=== PATIENT | male | born 1945 ===

== ENCOUNTER → 2019-12-30 10:53 | Outpatient (BNVA) | payer MEDICARE, OTHER, SELFPAY | PROVIDERS: PCP Family Medicine; Visit Provider Urology | DX: Z76.89 Persons encountering health services in other specified circumstances (principal) | CPT/HCPCS: 99212 ==

== ENCOUNTER → 2020-01-13 11:26 | Outpatient (BNVA) | payer MEDICARE, OTHER, SELFPAY | PROVIDERS: PCP Family Medicine; Visit Provider Urology | DX: N40.1 Benign prostatic hyperplasia with lower urinary tract symptoms (principal); N13.8 Other obstructive and reflux uropathy; R33.9 Retention of urine, unspecified | CPT/HCPCS: 51798; 99212 ==

== ENCOUNTER → 2020-12-08 11:20 | Outpatient (BNVA) | payer MEDICARE, OTHER, SELFPAY | PROVIDERS: PCP Family Medicine; Visit Provider Urology | DX: N40.1 Benign prostatic hyperplasia with lower urinary tract symptoms (principal); N13.8 Other obstructive and reflux uropathy | CPT/HCPCS: Q3014 ==

== ENCOUNTER → 2021-06-15 14:38 | Outpatient (BNVA) | payer MEDICARE, OTHER, SELFPAY | PROVIDERS: PCP Family Medicine; Visit Provider Urology | DX: N40.1 Benign prostatic hyperplasia with lower urinary tract symptoms (principal); N13.8 Other obstructive and reflux uropathy; R33.9 Retention of urine, unspecified | CPT/HCPCS: 51798; 99212 ==

== ENCOUNTER 2021-12-16 13:03 | Outpatient (AMB) | payer MEDICARE, OTHER, SELFPAY ==
--- NOTE | 2021-12-16 13:08 | MHC.OFFVIS ---
Intake Intake Visit Reasons: 6 month PVR Intake Note: fu on PVR Allergies mite-Dermatophagoides farinae, ale [dust mite - [place]] Allergy (Mild, Verified 09/20/22 14:47) Unknown HPI HPI Comments History of Present Illness Details Carlos is a pleasant male. He is a patient of Dr. Payne. He is seen for the following urologic conditions - neurogenic bladder Accompanied by his Notices progression of symptoms Is interested in procedure Has cardiac intervention upcoming Discussed issues regarding collateralization and reperfusion with capped rate He will call after intervention completed Neurogenic Bladder: Previous discussion regarding TUIP for bladder Episode of retention seen at [facility] December 2019, C[facility] PSA 11/02 3.3 Associated conditions Alzhiemers No CAD No CVA No Diabetes No Multiple sclerosis No renal replacement therapy No Spinal injury/surgery No Current management alpha blockers Erectile dysfunction:? He presents today for?for continued evaluation and management of erectile dysfunction.? Symptoms have been present for/since?several months ago.? Current treatment includes?none.? At this time he experiences erections?05/30 , are partial and adequate for vaginal penetration, that undergo rapid detumesence after penetration, ROB 8-11 Moderate ED.? Nocturnal erections?do occur.? Currently they are?in a stable relationship.? Associated problems? hypertension ?Yes ? diabetes ?No ? dyslipidemia ?No ? depression ?No ? stress ?No ? decreased libido ?No ? pelvic surgery ?No ? Overall he is ?satisfied with the current management.? Therapeutic plan includes?working well ?- only using occasionally PFSH Medical History Insomnia Panic attack HTN (hypertension) Neurogenic bladder Coronary atherosclerosis BPH (benign prostatic hyperplasia) Chronic sinusitis Poor urinary stream Benign prostatic hyperplasia with lower urinary tract symptoms Retention of urine Surgical History History of back surgery Hx of bilateral inguinal hernia repair Social History Household Members: Spouse Housing: House Are you a primary pediatric critical care nurse to a significant other at home: No Do you presently have visiting nurse or other home services: No Patient Tobacco Use Status: Never used Tobacco Review of Systems Const Denies chills and Denies fever(s) Card Reports no additional complaints and Denies syncope Resp Denies cough GI Denies abdominal pain and Denies heartburn Reports as per HPI and Denies change in libido Neuro Denies syncope Psych Denies change in libido Endo Denies change in libido Physical Exam Const General: cooperative, healthy appearing, comfortable and no acute distress Orientation/consciousness: patient oriented x3 HEENT Face and sinus: Yes normal facial exam Mouth: moist mucous membranes Neck Neck: Yes normal visual inspection, Yes full ROM and Yes trachea midline Chest Chest palpation & inspection: normal inspection of the chest Resp Effort & Inspection: normal respiratory effort, able to speak in complete sentences and no respiratory distress GI Inspection: Yes normal to inspection Back/Spine/Pelvis Cervical Spine: normal cervical lordosis Thoracic/Lumbar Spine: thoracic and lumbar spine normal to inspection Skin General skin exam: no rashes or lesions noted Neuro General: patient oriented x3, gait normal, tone normal and moves all extremities Extrem General: Yes normal to inspection and Yes capillary refill normal Assessment & Plan Assessment & Plan (1) BPH w urinary obs/LUTS: Code(s): N40.1 - Benign prostatic hyperplasia with lower urinary tract symptoms; N13.8 - Other obstructive and reflux uropathy (2) Urinary retention: Code(s): R33.9 - Retention of urine, unspecified Plan He will call once cardiac issues resolved Patient Instructions: Imaging studies, laboratory and physical exam results were discussed and reviewed in detail. No major barriers to patient understanding were identified. An opportunity to ask questions regarding the treatment plan was provided. All questions were answered. The patient expressed understanding and agreement with the above treatment plan. The patient is aware they should contact our office by phone for worsening of their current condition or the appearance of new urologic symptoms. Compliance is encouraged with any medications and followup testing that is ordered. It is a privilege to participate in the urologic care of your patient. If you have any questions or concerns regarding treatment for the above conditions, or other urologic issues, please do not hesitate to contact me. The office telephone contact is [phone]. This note is constructed using voice recognition software. While every effort has been made to ensure accuracy blade aligner errors may have been included. Yours sincerely, Dr Kevin Longoria MD, [facility] - Urology Providers of Expert, Compassionate Care for the Genitourinary System Coding Level of Care Code Est Pt Level 3 (23674) Diagnoses BPH w urinary obs/LUTS N40.1; N13.8 Urinary retention R33.9
== END 2021-12-16 13:47 | disposition home or self-care (01) ==
LOC: HO.HUSH 13:03
PROVIDERS: PCP Family Medicine; Visit Provider Urology
DX: N40.1 Benign prostatic hyperplasia with lower urinary tract symptoms (principal); N13.8 Other obstructive and reflux uropathy; R33.9 Retention of urine, unspecified
CPT/HCPCS: 99213; 99499

== ENCOUNTER → 2021-12-16 13:03 | Outpatient (BNVA) | payer MEDICARE, OTHER, SELFPAY | PROVIDERS: PCP Family Medicine; Visit Provider Urology | DX: N40.1 Benign prostatic hyperplasia with lower urinary tract symptoms (principal); N13.8 Other obstructive and reflux uropathy; R33.9 Retention of urine, unspecified | CPT/HCPCS: 99212 ==

== ENCOUNTER → 2022-05-11 14:26 | Outpatient (BNVA) | payer MEDICARE, OTHER, SELFPAY | PROVIDERS: PCP Family Medicine; Visit Provider Urology | DX: N40.1 Benign prostatic hyperplasia with lower urinary tract symptoms (principal); N13.8 Other obstructive and reflux uropathy; R33.9 Retention of urine, unspecified; N52.9 Male erectile dysfunction, unspecified; I10 Essential (primary) hypertension | CPT/HCPCS: Q3014 ==

== ENCOUNTER → 2022-08-10 11:25 | Outpatient (BNVA) | payer MEDICARE, OTHER, SELFPAY | PROVIDERS: Visit Provider Urology | DX: N40.1 Benign prostatic hyperplasia with lower urinary tract symptoms (principal); N13.8 Other obstructive and reflux uropathy; N31.9 Neuromuscular dysfunction of bladder, unspecified; N52.9 Male erectile dysfunction, unspecified; E29.1 Testicular hypofunction; R39.12 Poor urinary stream; R33.9 Retention of urine, unspecified | CPT/HCPCS: 99212 ==

== ENCOUNTER 2022-12-25 06:50 | Day surgery (SDC) | payer MEDICARE, OTHER, SELFPAY ==
[2022-09-20 14:48] VITALS: BMI 22.6
[2022-12-21 16:01] VITALS: BMI 22.9
[2022-12-25] VITALS (8 sets, daily range): BP systolic 107–132; BP diastolic 63–87; PULSE 56–68; RESP 12–18; TEMP 36.1–36.3; O2SAT 98–100
--- NOTE | 2022-12-25 09:03 | HO.ANESPROP2 ---
HPI - Anesthesia Eval Consult details Narrative: 77 yo M presenting for cystoscopy and transurethral incision Prost PMFSH Active Problems Active Problems: All Active Problems (Updated 12/21/22 @ 15:59 by Janay Fnuez RN) BPH w urinary obs/LUTS (Acute) Urinary retention (Acute) Past Medical History Medical History Insomnia Panic attack HTN (hypertension) Neurogenic bladder Coronary atherosclerosis BPH (benign prostatic hyperplasia) Chronic sinusitis Poor urinary stream Benign prostatic hyperplasia with lower urinary tract symptoms Retention of urine Family History Family history of problems with anesthesia: No Surgical History Surgical History History of back surgery Hx of bilateral inguinal hernia repair History of Problems with Anesthesia: No Social History Social History Household Members: Spouse Housing: House Are you a primary customer care specialist to a significant other at home: No Do you presently have visiting nurse or other home services: No Patient Tobacco Use Status: Never used Tobacco Use of substances other than those prescribed or required for medical reasons: No Substance Use Frequency: Daily Have you been hit, kicked, punched, or otherwise hurt by someone within the past year? If so, by whom?: No Are you DNR?: No Advance Directives: No Advance Directives Information Provided: Yes Advance Directives on File: No Recently lost weight without trying: No Eating poorly because of decreased appetite: No Nutrition Risks: No Nutritional Risk Poor oral hygiene: No Meds Allergies Allergy/AdvReac Type Severity Reaction Status Date / Time mite-Dermatophagoides Allergy Mild Unknown Verified 09/20/22 14:47 ale cash [dust mite - [place]] Active Medications: Current Medications Lactated Ringer's (Lr) 1,000 mls @ 50 mls/hr IVCONT .Q20H [facility] Home Medications Medication Instructions Recorded Confirmed Last Taken Type fluticasone propionate 50 1 spray intranasal DAILY PRN 12/30/19 09/20/22 Unknown History mcg/actuation nasal Allergy Symptoms spray,suspension aspirin 81 mg tablet,delayed 81 mg PO DAILY 06/15/21 09/20/22 Unknown History release sertraline 25 mg tablet 25 mg PO BEDTIME 06/15/21 12/21/22 Unknown History amlodipine 2.5 mg tablet 2.5 mg PO DAILY 09/20/22 Unknown History buspirone 5 mg tablet 5 mg PO BID 09/20/22 Unknown History gabapentin 300 mg capsule 300 mg PO DAILY 09/20/22 Unknown History ivermectin 3 mg tablet 12 mg PO QWEEK 09/20/22 Unknown History metoprolol succinate 25 mg capsule 25 mg PO DAILY 09/20/22 Unknown History sprinkle, ext. release 24 hr nitroglycerin 0.4 mg sublingual 0.4 mg sublingual Q5M PRN Chest 09/20/22 09/20/22 Unknown History tablet (Nitrostat) Pain prazosin 1 mg capsule 1 mg PO BEDTIME 09/20/22 09/20/22 Unknown History tamsulosin 0.4 mg capsule 0.4 mg PO BEDTIME 12/21/22 12/21/22 Unknown History zolpidem 5 mg tablet (Ambien) 5 mg PO BEDTIME PRN Insomnia 12/21/22 12/21/22 Unknown History Exam Exam Date and Time: December 25, 2022902 Height,Weight and Vital Signs: Height 5 ft 9 in Weight 70.307 kg Last Vital Signs Temp 96.9 F 12/25/22 08:03 Pulse 56 12/25/22 08:03 Resp 18 12/25/22 08:03 BP 107/87 12/25/22 08:03 Pulse Ox 98 12/25/22 08:03 O2 Del Method Room Air 12/25/22 08:03 Airway Mallampati Class: II TM Dist: >3cm Neck ROM: Full Loose/Missing/Broken Teeth: No Heart: S1S2 Lungs: CTAB Assessment and Plan Assessment Anesthesia Assessment: Anesthesia Plan Discussed and Chart Reviewed Final Anesthetic Review Family History of Problems with Anesthesia: No History of Problems with Anesthesia: No NPO: Yes ASA Class: II Final Preanesthetic Review: No Changes in Pt Med Stat, Meds/Allgs Chart Reviewed, Consent Obtained/Reviewed and Anes Risks/Benef Reviewed Patient Risk: Low Procedure Risk: Low Anesthetic Plan Anesthetic Plan: GA and Agree w/ Assess. and Plan Disposition: Standard PACU
--- NOTE | 2022-12-25 09:08 | P.HPSUR_ITS ---
Pre-Procedural Eval Section A Date of Service: 12/25/22 The patient is an INPATIENT: No Changes since office visit: No Cold of Flu in the past 2 weeks, No New Medical Problems, No Changes in Medication and No Patient answered all questions The History & Physical has been completed within 30 days and I have reviewed it.: No Section B Chief Complaint: Benign prostatic hyperplasia with lower urinary Details of Present Illness: Bladder outlet obstruction Relevant Family History (Specify if Yes): No Relevant Social History: None Present Medications: see Short Stay Collaborative assessment Medical History: Significant History History of Previous Operations: No relevant previous surgery Allergies: Allergies Allergy/AdvReac Type Severity Reaction Status Date / Time mite-Dermatophagoides Allergy Mild Unknown Verified 09/20/22 14:47 ale cash [dust mite - [place]] Review of Systems Sugical H&P ROS: Negative: Constitution, Cardiovascular, Respiratory, Neurological, Psychiatric, Hem-Onc, Allergic/Immunologic, Gastrointestinal, Genitourinary, Musculoskeletal, Integumentary, Endocrine and Eyes/Ears/Nose/Throat Exam Surgical H&P Exam: Normal: HEENT, Normal: Heart, Normal: Lungs, Normal: Extremities, Normal: Abdomen, Normal: Skin and Normal: Neurological Plan Diagnosis/Plan: Unchanged (laser incision) I have reviewed the history and physical and performed a pertinent physical examination on my patient. No changes have occurred unless specified. Time Spent With Patient Time: Total time managing care of this patient today ____ minutes.
[2022-12-25] MEDS: Lactated Ringers 1,000 ML 50 ML IVCONT (09:13)
--- NOTE | 2022-12-25 10:12 | P.OP_ITS ---
Operative Note Operative Note Date of Service: 12/25/22 Narrative: PreOperative Diagnosis: Bladder outlet obstruction Post Operative Diagnosis: Bladder outlet obstruction Procedure: GreenLight Laser Enucleation of the prostate Surgeon: Dr Kevin Longoria Anesthesia: General History of bladder outlet obstruction. Treated with alpha-amie and other medications. Still with symptoms. On cystoscopy in office has tight bladder neck. Recommendation for prostate procedure with laser incision of the prostate. At cystoscopy in operating room found to have median lobe that was obstructive. Laser enucleation procedure performed Risks and benefits have been discussed. Focus was placed on development of retrograde ejaculation which is a normal part of this procedure. Procedure: After informed consent was verified the patient was brought to the operating room and placed in a supine position. Anesthesia was administered per protocol. Patient was placed in modified dorsal lithotomy position and prepped and draped in a sterile fashion. Safety pause time-out was confirmed. Antibiotics have been given. A Twenty-four [place] laser cystoscope was inserted per urethra. No abnormalities were found of the anterior and bulbar urethra. The bladder was examined and both ureteric orifices were seen in their normal positions away from the area of interest. Using a GreenLight laser with settings of 80 w incisions were made at the 5 and 7 o'clock position. The incisions were taken down from the bladder neck down to the level of the veru. These were gradually deepened in order to define the lateral aspects of the median lobe area. Once clearly defined they will also extended in the lateral directions in order to create a deep groove. The median lobe was then ablated and enucleated tissue released into the bladder with the laser power increased to 120 W. Once the median lobe area had been cleared attention was directed to the lower portion of the lateral lobes. Starting with the patient's left lateral lobe. First the 05:00 o'clock groove was further developed. This was moved in the lateral direction to undermine the tissue on the lateral side running from the bladder neck to the prostate apex. A similar procedure was repeated on the patient's right-hand side. The only d ifferences being the position of the lateral groove at he 7 'oclock position. Otherwise the procedure was developed in a mirror fashion. Particular attention was placed to the area around the veru. Obstructive tissue was removed both in the midline and laterally. When this was had been completed debris and pieces of prostate were removed from the bladder with irrigation. Both ureteric orifices were reviewed again in shown to be patent in away from any areas of energy damage. The apical area was reviewed in any stray ooze was controlled. A 22 [place] 30 cc balloon Waters catheter was placed over a stylet into the bladder. Clear efflux was obtained upon irrigation with a Shahida piston syringe. 30 cc was placed in the balloon and gentle traction was placed. A snap was used to hold tension on the catheter to control bleeding during patient moved and transported. A drainage bag was placed. Once transportation is complete to the PACU the snap will be removed. The patient tolerated the procedure well, he was extubated in the operating and transferred in a stable condition to the recovery area. Total Power 152kW kW Lasing time 20:36 Pathology: Prostate tissue Drains: Waters catheter
--- NOTE | 2022-12-25 10:19 | PM.DS ---
DS: Providers Provider Date of Service: 12/25/22 Primary care physician: En Kennedy MD DS: Diagnosis Discharge Diagnosis (1) BPH w urinary obs/LUTS: Status: Acute (2) Urinary retention: Status: Acute (3) Gross hematuria: Status: Acute DS: Summary Hospital Course Hospital Course: Underwent prostate procedure Postoperatively had significant hematuria Remain in hospital overnight Urine cleared by morning Status at Discharge Functional status at discharge: independent ambulation Overall status at discharge: patient is back to baseline Time Attestation Discharge coordination time: Less than 30 minutes Quality: Safe Use of Opioids Does Pt have an Active Cancer Diagnosis on the Problem List?: No Quality: Stroke Does the patient have a stroke diagnosis?: No Physical Exam Vital Signs: Vital Signs: Last Vital Signs Temp 96.9 F 12/25/22 08:03 Pulse 56 12/25/22 08:03 Resp 18 12/25/22 08:03 BP 107/87 12/25/22 08:03 Pulse Ox 98 12/25/22 08:03 O2 Del Method Room Air 12/25/22 08:03 BMI result Body Mass Index 22.9 DS: Data Data Completed and Pending Pending studies at discharge: Pending at discharge 12/25/22 09:59 Surgical [PTH] Routine Discharge Plan Discharge Patient Disposition: Home, Self-Care Referrals: Kevin Longoria MD [Physician] - 3-5 Days (sun/ catheter removal) En Kennedy MD [Primary Care Provider] - None Discharge Medications: No Action finasteride 5 mg tablet 5 mg PO DAILY 90 Days Qty: 90 2RF buspirone 5 mg Tablet 5 mg PO BID prazosin 1 mg Capsule 1 mg PO BEDTIME amlodipine 2.5 mg Tablet 2.5 mg PO DAILY nitroglycerin [Nitrostat] 0.4 mg Tablet, Sublingual 0.4 mg SUBLINGUAL Q5M PRN (Reason: Chest Pain) Rx Instructions: do not exceed 3 doses per episode gabapentin 300 mg Capsule 300 mg PO DAILY metoprolol succinate 25 mg Capsule,Sprinkle,Er 24hr 25 mg PO DAILY ivermectin 3 mg Tablet 12 mg PO QWEEK tamsulosin 0.4 mg capsule 0.4 mg PO BEDTIME zolpidem [Ambien] 5 mg Tablet 5 mg PO BEDTIME PRN (Reason: Insomnia) fluticasone propionate 50 mcg/actuation spray,suspension 1 spray intranasal DAILY PRN (Reason: Allergy Symptoms) sertraline 25 mg tablet 25 mg PO BEDTIME aspirin 81 mg tablet,delayed release (DR/EC) 81 mg PO DAILY Discharge Orders: Discharge Order (Routine); Ordered 12/25/22 Ordered By: Kevin Longoria Diet: Advance to usual diet Activity on Discharge: As tolerated Patient Instructions: Transurethral Prostatectomy (DC) Discharge Date/Time: 12/25/22 11:56
== END 2022-12-25 11:56 | disposition home or self-care (01) ==
PROVIDERS: PCP Internal Medicine Endocrinology, Diabetes & Metabolism; Visit Provider Urology
PROC: (CPT 52649; principal; 2022-12-25 09:10)
DX: N40.1 Benign prostatic hyperplasia with lower urinary tract symptoms (principal); N13.8 Other obstructive and reflux uropathy; R33.8 Other retention of urine; R39.12 Poor urinary stream; I25.10 Atherosclerotic heart disease of native coronary artery without angina pectoris; I10 Essential (primary) hypertension; E78.5 Hyperlipidemia, unspecified; J32.9 Chronic sinusitis, unspecified; F41.0 Panic disorder [episodic paroxysmal anxiety]; F41.9 Anxiety disorder, unspecified; Z79.51 Long term (current) use of inhaled steroids; Z79.899 Other long term (current) drug therapy
CPT/HCPCS: 52649; 88305; J1100; J1956; J2405; J2704; J3010

== ENCOUNTER → 2022-12-25 06:50 | Outpatient (BNV) | payer MEDICARE, OTHER, SELFPAY | PROVIDERS: PCP Internal Medicine Endocrinology, Diabetes & Metabolism; Visit Provider Urology | DX: N40.1 Benign prostatic hyperplasia with lower urinary tract symptoms (principal); N13.8 Other obstructive and reflux uropathy; R33.9 Retention of urine, unspecified; R31.0 Gross hematuria | CPT/HCPCS: 52649; 99024 ==

== ENCOUNTER 2022-12-27 16:05 | Outpatient (AMB) | payer MEDICARE, OTHER, SELFPAY ==
--- NOTE | 2022-12-27 16:05 | A.OFFVIS_ITS ---
Intake Intake Visit Reasons: 24 hr cath removal (tuip) Intake Note: pt presents for cathter removal s/p TUIP- 22 fr cath removed, pt tolerated removal well. Allergies mite-Dermatophagoides farinae, ale [dust mite - [place]] Allergy (Mild, Verified 09/20/22 14:47) Unknown HPI HPI Comments History of Present Illness Details Carlos is a pleasant male. He is a patient of Dr. Payne. He is seen for the following urologic conditions - neurogenic bladder - erectile dysfunction - hypogonadism - treated in [place] with hormone pellet - lower urinary tract symptoms Here for Waters catheter removal Did well with partial laser prostate enucleation Return in 4 weeks PVR Neurogenic Bladder/lower urinary tract symptoms Previous discussion regarding TUIP for bladder Episode of retention seen at [facility] December 2019, [facility] PSA 11/02 3.3 Current management alpha blockers Erectile dysfunction:? He presents today for?for continued evaluation and management of erectile dysfunction.? Symptoms have been present for/since?several months ago.? Current treatment includes?none.? At this time he experiences erections?05/30 , are partial and adequate for vaginal penetration, that undergo rapid detumesence after penetration, ROB 8-11 Moderate ED.? Nocturnal erections?do occur.? Currently they are?in a stable relationship.? Associated problems? hypertension ?Yes ? diabetes ?No ? dyslipidemia ?No ? depression ?No ? stress ?No ? decreased libido ?No ? pelvic surgery ?No ? Overall he is ?satisfied with the current management.? Therapeutic plan includes?working well ?- only using occasionally PFSH Medical History Insomnia Panic attack HTN (hypertension) Neurogenic bladder Coronary atherosclerosis BPH (benign prostatic hyperplasia) Chronic sinusitis Poor urinary stream Benign prostatic hyperplasia with lower urinary tract symptoms Retention of urine Surgical History History of back surgery Hx of bilateral inguinal hernia repair Social History Household Members: Spouse Housing: House Are you a primary director of patient care to a significant other at home: No Do you presently have visiting nurse or other home services: No Patient Tobacco Use Status: Never used Tobacco Review of Systems Const Denies chills and Denies fever(s) Card Reports no additional complaints and Denies syncope Resp Denies cough GI Denies abdominal pain and Denies heartburn Reports as per HPI and Denies change in libido Neuro Denies syncope Psych Denies change in libido Endo Denies change in libido Physical Exam Const General: cooperative, healthy appearing, comfortable and no acute distress Orientation/consciousness: patient oriented x3 HEENT Face and sinus: Yes normal facial exam Mouth: moist mucous membranes Neck Neck: Yes normal visual inspection, Yes full ROM and Yes trachea midline Chest Chest palpation & inspection: normal inspection of the chest Resp Effort & Inspection: normal respiratory effort, able to speak in complete sentences and no respiratory distress GI Inspection: Yes normal to inspection Back/Spine/Pelvis Cervical Spine: normal cervical lordosis Thoracic/Lumbar Spine: thoracic and lumbar spine normal to inspection Skin General skin exam: no rashes or lesions noted Neuro General: patient oriented x3, gait normal, tone normal and moves all extremities Extrem General: Yes normal to inspection and Yes capillary refill normal Assessment & Plan Assessment & Plan (1) Urinary retention: Code(s): R33.9 - Retention of urine, unspecified (2) BPH w urinary obs/LUTS: Code(s): N40.1 - Benign prostatic hyperplasia with lower urinary tract symptoms; N13.8 - Other obstructive and reflux uropathy Plan 4 week follow-up PVR Patient Instructions: Imaging studies, laboratory and physical exam results were discussed and reviewed in detail. No major barriers to patient understanding were identified. An opportunity to ask questions regarding the treatment plan was provided. All questions were answered. The patient expressed understanding and agreement with the above treatment plan. The patient is aware they should contact our office by phone for worsening of their current condition or the appearance of new urologic symptoms. Compliance is encouraged with any medications and followup testing that is ordered. It is a privilege to participate in the urologic care of your patient. If you have any questions or concerns regarding treatment for the above conditions, or other urologic issues, please do not hesitate to contact me. The office telephone contact is [phone]. This note is constructed using voice recognition software. While every effort has been made to ensure accuracy custom protection officer errors may have been included. Yours sincerely, Dr Kevin Longoria MD, [facility] - Urology Providers of Expert, Compassionate Care for the Genitourinary System Coding Level of Care Code Global (54436) Diagnoses Urinary retention R33.9 BPH w urinary obs/LUTS N40.1; N13.8
== END 2022-12-27 16:50 | disposition home or self-care (01) ==
PROVIDERS: PCP Internal Medicine Endocrinology, Diabetes & Metabolism; Visit Provider Urology
DX: R33.9 Retention of urine, unspecified (principal); N40.1 Benign prostatic hyperplasia with lower urinary tract symptoms; N13.8 Other obstructive and reflux uropathy
CPT/HCPCS: 99024

== ENCOUNTER → 2022-12-27 16:05 | Outpatient (BNVA) | payer MEDICARE, OTHER, SELFPAY | PROVIDERS: PCP Internal Medicine Endocrinology, Diabetes & Metabolism; Visit Provider Urology ==

== ENCOUNTER 2023-01-26 11:35 | Outpatient (AMB) | payer MEDICARE, OTHER, SELFPAY ==
--- NOTE | 2023-01-26 11:56 | A.OFFVIS_ITS ---
Intake Intake Visit Reasons: 4w/PVR Intake Note: Patient is Present for Follow Up Urology Medication: Finasteride, Tamsulosin Antibiotic Allergies: None Blood Thinners:Aspirin PVR: 17 Compliants: Still having frequency and urge to urinate Allergies mite-Dermatophagoides farinae, ale [dust mite - [place]] Allergy (Mild, Verified 09/20/22 14:47) Unknown HPI HPI Comments History of Present Illness Details Carlos is a pleasant male. He is a patient of Dr. Payne. He is seen for the following urologic conditions - neurogenic bladder - erectile dysfunction - hypogonadism - treated in [place] with hormone pellet - lower urinary tract symptoms Four week PVR low Does have some urgency and frequency Reassurance provided He was surprised by minimal pain Follow-up next year Neurogenic Bladder/lower urinary tract symptoms Previous discussion regarding TUIP for bladder Episode of retention seen at [facility] December 2019, [facility]IC PSA 11/02 3.3 Current management alpha blockers Erectile dysfunction:? He presents today for?for continued evaluation and management of erectile dysfunction.? Symptoms have been present for/since?several months ago.? Current treatment includes?none.? At this time he experiences erections?05/30 , are partial and adequate for vaginal penetration, that undergo rapid detumesence after penetration, ROB 8-11 Moderate ED.? Nocturnal erections?do occur.? Currently they are?in a stable relationship.? Associated problems? hypertension ?Yes ? diabetes ?No ? dyslipidemia ?No ? depression ?No ? stress ?No ? decreased libido ?No ? pelvic surgery ?No ? Overall he is ?satisfied with the current management.? Therapeutic plan includes?working well ?- only using occasionally PFSH Medical History Insomnia Panic attack HTN (hypertension) Neurogenic bladder Coronary atherosclerosis BPH (benign prostatic hyperplasia) Chronic sinusitis Poor urinary stream Benign prostatic hyperplasia with lower urinary tract symptoms Retention of urine Surgical History History of back surgery Hx of bilateral inguinal hernia repair Social History Household Members: Spouse Housing: House Are you a primary field care coordinator to a significant other at home: No Do you presently have visiting nurse or other home services: No Patient Tobacco Use Status: Never used Tobacco Review of Systems Const Denies chills and Denies fever(s) Card Reports no additional complaints and Denies syncope Resp Denies cough GI Denies abdominal pain and Denies heartburn Reports as per HPI and Denies change in libido Neuro Denies syncope Psych Denies change in libido Endo Denies change in libido Physical Exam Const General: cooperative, healthy appearing, comfortable and no acute distress Orientation/consciousness: patient oriented x3 HEENT Face and sinus: Yes normal facial exam Mouth: moist mucous membranes Neck Neck: Yes normal visual inspection, Yes full ROM and Yes trachea midline Chest Chest palpation & inspection: normal inspection of the chest Resp Effort & Inspection: normal respiratory effort, able to speak in complete sentences and no respiratory distress GI Inspection: Yes normal to inspection Back/Spine/Pelvis Cervical Spine: normal cervical lordosis Thoracic/Lumbar Spine: thoracic and lumbar spine normal to inspection Skin General skin exam: no rashes or lesions noted Neuro General: patient oriented x3, gait normal, tone normal and moves all extremities Extrem General: Yes normal to inspection and Yes capillary refill normal Office Procedures Post Void Residual Post Residual Void Post Void Residual (PVR): 17 24984-Qdvu Void Residual by ultrasound Assessment & Plan Assessment & Plan (1) BPH w urinary obs/LUTS: Code(s): N40.1 - Benign prostatic hyperplasia with lower urinary tract symptoms; N13.8 - Other obstructive and reflux uropathy (2) Urinary retention: Code(s): R33.9 - Retention of urine, unspecified Plan Follow-up next September Orders: Orders AMB Post Void Residual by ultrasound 01/26/23 R33.9 - Retention of urine, unspecified AMB Urinalysis Automated 01/26/23 Z13.9 - Encounter for screening, unspecified Patient Instructions: Imaging studies, laboratory and physical exam results were discussed and reviewed in detail. No major barriers to patient understanding were identified. An opportunity to ask questions regarding the treatment plan was provided. All questions were answered. The patient expressed understanding and agreement with the above treatment plan. The patient is aware they should contact our office by phone for worsening of their current condition or the appearance of new urologic symptoms. Compliance is encouraged with any medications and followup testing that is ordered. It is a privilege to participate in the urologic care of your patient. If you have any questions or concerns regarding treatment for the above conditions, or other urologic issues, please do not hesitate to contact me. The office telephone contact is [phone]. This note is constructed using voice recognition software. While every effort has been made to ensure accuracy emissions testing technician errors may have been included. Yours sincerely, Dr Kevin Longoria MD, JOSE LUIS [facility] - Urology Providers of Expert, Compassionate Care for the Genitourinary System Coding Level of Care Code Est Pt Level 3 (42790) Diagnoses BPH w urinary obs/LUTS N40.1; N13.8 Urinary retention R33.9 CPT Codes Post Residual Void - PVR CPT Code: 24973-Ovsq Void Residual by ultrasound ([id number])
== END 2023-01-26 12:19 | disposition home or self-care (01) ==
PROVIDERS: PCP Internal Medicine Endocrinology, Diabetes & Metabolism; Visit Provider Urology
DX: N40.1 Benign prostatic hyperplasia with lower urinary tract symptoms (principal); N13.8 Other obstructive and reflux uropathy; R33.9 Retention of urine, unspecified
CPT/HCPCS: 99024

== ENCOUNTER → 2023-01-26 11:35 | Outpatient (BNVA) | payer MEDICARE, OTHER, SELFPAY | PROVIDERS: PCP Internal Medicine Endocrinology, Diabetes & Metabolism; Visit Provider Urology | DX: N40.1 Benign prostatic hyperplasia with lower urinary tract symptoms (principal); N13.8 Other obstructive and reflux uropathy; R33.9 Retention of urine, unspecified | CPT/HCPCS: 51798; 99212 ==

== ENCOUNTER 2023-10-16 11:35 | Outpatient (AMB) | payer MEDICARE, OTHER, SELFPAY ==
--- NOTE | 2023-10-16 11:37 | MHC.OFFVIS ---
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: No Allergies mite-Dermatophagoides farinae, ale [dust mite - [place]] Allergy (Mild, Verified 10/16/23 11:38) Unknown Medication List - Last Reconciled 10/16/23 by Kevin Longoria MD amlodipine 2.5 mg PO DAILY aspirin 81 mg PO DAILY buspirone 5 mg PO BID finasteride 5 mg PO DAILY 90 days fluticasone propionate 50 mcg/actuation 1 spray intranasal DAILY PRN gabapentin 300 mg PO DAILY ivermectin 12 mg PO QWEEK metoprolol succinate ER 25 mg PO DAILY nitroglycerin (Nitrostat) 0.4 mg sublingual Q5M PRN prazosin 1 mg PO BEDTIME sertraline 25 mg PO BEDTIME tadalafil 5 mg PO DAILY 90 days tamsulosin 0.4 mg PO BEDTIME zolpidem (Ambien) 5 mg PO BEDTIME PRN HPI Comments Details: Carlos is a pleasant male. He is a patient of Dr. Payne. He is seen for the following urologic conditions - neurogenic bladder - erectile dysfunction - hypogonadism - treated in [place] with hormone pellet - lower urinary tract symptoms 9 month follow-up Would stay on testosterone supplementation PSA 4.4 Discussed potential biopsy Neurogenic Bladder/lower urinary tract symptoms Previous discussion regarding TUIP for bladder Episode of retention seen at [facility] December 2019, [facility] PSA 11/02 3.3 Current management alpha blockers Erectile dysfunction:? He presents today for?for continued evaluation and management of erectile dysfunction.? Symptoms have been present for/since?several months ago.? Current treatment includes?none.? At this time he experiences erections?05/30 , are partial and adequate for vaginal penetration, that undergo rapid detumesence after penetration, ROB 8-11 Moderate ED.? Nocturnal erections?do occur.? Currently they are?in a stable relationship.? Associated problems? hypertension ?Yes ? diabetes ?No ? dyslipidemia ?No ? depression ?No ? stress ?No ? decreased libido ?No ? pelvic surgery ?No ? Overall he is ?satisfied with the current management.? Therapeutic plan includes?working well ?- only using occasionally PFSH Medical History Insomnia Panic attack HTN (hypertension) Neurogenic bladder Coronary atherosclerosis BPH (benign prostatic hyperplasia) Chronic sinusitis Poor urinary stream Benign prostatic hyperplasia with lower urinary tract symptoms Retention of urine Surgical History History of back surgery Hx of bilateral inguinal hernia repair Social History Household Members: Spouse Housing: House Are you a primary care clinician to a significant other at home: No Do you presently have visiting nurse or other home services: No Patient Tobacco Use Status: Never used Tobacco Review of Systems Const Denies chills and Denies fever(s) Card Reports no additional complaints and Denies syncope Resp Denies cough GI Denies abdominal pain and Denies heartburn Reports as per HPI and Denies change in libido Neuro Denies syncope Psych Denies change in libido Endo Denies change in libido Physical Exam Const General: cooperative, healthy appearing, comfortable and no acute distress Orientation/consciousness: patient oriented x3 HEENT Face and sinus: Yes normal facial exam Mouth: moist mucous membranes Neck Neck: Yes normal visual inspection, Yes full ROM and Yes trachea midline Chest Chest palpation & inspection: normal inspection of the chest Resp Effort & Inspection: normal respiratory effort, able to speak in complete sentences and no respiratory distress GI Inspection: Yes normal to inspection Back/Spine/Pelvis Cervical Spine: normal cervical lordosis Thoracic/Lumbar Spine: thoracic and lumbar spine normal to inspection Skin General skin exam: no rashes or lesions noted Neuro General: patient oriented x3, gait normal, tone normal and moves all extremities Extrem General: Yes normal to inspection and Yes capillary refill normal Office Procedures Post Void Residual Post Residual Void Post Void Residual (PVR): 0 [id number]-[id number] Void Residual by ultrasound Results AMB Urinalysis, Automated UA Leukoctes 0 Zonia/uL Last Edit by CHERYL Bahena on 10/16/23 11:48 UA Nitrite Negative Last Edit by CHERYL Bahena on 10/16/23 11:48 UA Urobilinogen 0.2 mg/dL Last Edit by CHERYL Bahena on 10/16/23 11:48 UA Protein 15 mg/dL Last Edit by Iliana Santoyo CCM on 10/16/23 11:48 UA pH 6.5 Last Edit by Iliana Santoyo [facility] on 10/16/23 11:48 UA Blood 0 Efren/uL Last Edit by Iliana Santoyo CCM on 10/16/23 11:48 UA Specific [place] 1.015 Last Edit by Iliana Santoyo CCM on 10/16/23 11:48 UA Ketone Negative Last Edit by CHERYL Bahena on 10/16/23 11:48 UA Bilirubin 0 mg/dL Last Edit by Iliana Santoyo CCM on 10/16/23 11:48 UA Glucose 0 mg/dL Last Edit by Iliana Santoyo [facility] on 10/16/23 11:48 Results Reviewed Results Reviewed: Laboratory Last Values Urine pH (Auto) 6.5 10/16/23 11:47 Specific [place] (Auto) 1.015 10/16/23 11:47 Urine Protein (Auto) 15 mg/dL 10/16/23 11:47 Glucose (UA)(Auto) 0 mg/dL 10/16/23 11:47 Urine Ketones (Auto) Negative 10/16/23 11:47 Urine Blood (Auto) 0 Efren/uL 10/16/23 11:47 Urine Nitrite (Auto) Negative 10/16/23 11:47 Urine Bilirubin (Auto) 0 mg/dL 10/16/23 11:47 Urine Urobilinogen (Auto) 0.2 mg/dL 10/16/23 11:47 Leukocyte Esterase (Auto) 0 Zonia/uL 10/16/23 11:47 Assessment & Plan Assessment & Plan (1) Urinary urgency: Code(s): R39.15 - Urgency of urination Category: Medical (2) Elevated PSA: Code(s): R97.20 - Elevated prostate specific antigen [PSA] Category: Medical Plan Prostate MRI Orders: Orders AMB Urinalysis Automated 10/16/23 Z13.9 - Encounter for screening, unspecified MR pelvis wo/w con 10/16/23 R97.20 - Elevated prostate specific antigen [PSA] Medications: New tadalafil 5 mg PO DAILY 90 tabs 0RF sexual activity 90 days R39.15 - Urgency of urination, E11.69 - Type 2 diabetes mellitus with other specified complication, N52.1 - Erectile dysfunction due to diseases classified elsewhere Patient Instructions: Imaging studies, laboratory and physical exam results were discussed and reviewed in detail. No major barriers to patient understanding were identified. An opportunity to ask questions regarding the treatment plan was provided. All questions were answered. The patient expressed understanding and agreement with the above treatment plan. The patient is aware they should contact our office by phone for worsening of their current condition or the appearance of new urologic symptoms. Compliance is encouraged with any medications and followup testing that is ordered. It is a privilege to participate in the urologic care of your patient. If you have any questions or concerns regarding treatment for the above conditions, or other urologic issues, please do not hesitate to contact me. The office telephone contact is [phone]. This note is constructed using voice recognition software. While every effort has been made to ensure accuracy dip guider stoves errors may have been included. Yours sincerely, Dr Kevin Longoria MD, JOSE LUIS [facility] - Urology Providers of Expert, Compassionate Care for the Genitourinary System Coding Level of Care Code Est Pt Level 3 (31106) Diagnoses Urinary urgency R39.15 Elevated PSA R97.20 CPT Codes Post Residual Void - PVR CPT Code: 61482-Wmzc Void Residual by ultrasound ([id number])
== END 2023-10-16 12:46 | disposition home or self-care (01) ==
PROVIDERS: PCP Internal Medicine Endocrinology, Diabetes & Metabolism; Visit Provider Urology
DX: R39.15 Urgency of urination (principal); R97.20 Elevated prostate specific antigen [PSA]
CPT/HCPCS: 99213

== ENCOUNTER → 2023-10-16 11:35 | Outpatient (BNVA) | payer MEDICARE, OTHER, SELFPAY | PROVIDERS: PCP Internal Medicine Endocrinology, Diabetes & Metabolism; Visit Provider Urology | DX: R39.15 Urgency of urination (principal); R97.20 Elevated prostate specific antigen [PSA] | CPT/HCPCS: 51798; 81003; 99212 ==

== ENCOUNTER 2023-12-25 10:40 | Outpatient (AMB) | payer MEDICARE, OTHER, SELFPAY ==
--- NOTE | 2023-12-25 10:41 | A.OFFVIS_ITS ---
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 He is a patient of Dr. Payne. He is seen for the following urologic conditions - neurogenic bladder - erectile dysfunction - hypogonadism - treated in [place] with hormone pellet - lower urinary tract symptoms Telemedicine Evaluation 15 min Consultation D[employer]Huodongx[employer] Ben Video Discussed bladder diary Two month follow-up Would stay on testosterone supplementation PSA 4.4 Discussed potential biopsy Receives pellets in [place] Current prostate medications include finasteride and tadalafil Neurogenic Bladder/lower urinary tract symptoms Greenlight laser prostate 01/04 Episode of retention seen at [facility] December 2019, [facility]IC PSA 11/02 3.3 Current management alpha blockers Erectile dysfunction:? He presents today for?for continued evaluation and management of erectile dysfunction.? Symptoms have been present for/since?several months ago.? Current treatment includes?none.? At this time he experiences erections?05/30 , are partial and adequate for vaginal penetration, that undergo rapid detumesence after penetration, ROB 8-11 Moderate ED.? Nocturnal erections?do occur.? Currently they are?in a stable relationship.? Overall he is ?satisfied with the current management.? Therapeutic plan includes?working well ?- only using occasionally PFSH Medical History Insomnia Panic attack HTN (hypertension) Neurogenic bladder Coronary atherosclerosis BPH (benign prostatic hyperplasia) Chronic sinusitis Poor urinary stream Benign prostatic hyperplasia with lower urinary tract symptoms Retention of urine Surgical History History of back surgery Hx of bilateral inguinal hernia repair Social History Household Members: Spouse Housing: House Are you a primary vision care associate to a significant other at home: No Do you presently have visiting nurse or other home services: No Patient Tobacco Use Status: Never used Tobacco Review of Systems Const All systems reviewed & are unremarkable except as noted in HPI and below Reports no additional complaints Resp Reports no additional complaints GI Reports no additional complaints Reports as per HPI Musc Reports no additional complaints Physical Exam Telemedicine evaluation Appropriate responses Regular breathing rate and rhythm HEENT Head: Yes normal to inspection Ears: hearing grossly normal bilaterally Eyes General: appearance normal, both eyes and all related structures Neck Neck: Yes normal visual inspection Chest Chest palpation & inspection: normal inspection of the chest Resp Effort & Inspection: normal respiratory effort and able to speak in complete sentences Telehealth Telehealth Location of provider rendering services: practice address Location of patient: address on file Patient Identification confirmed using: Name, : Yes Telehealth method: video Patient verbally consented to treatment: Yes Patient verbally consented to billing insurance company: Yes Patient informed of any privacy concerns related to visit: Yes Assessment & Plan Assessment & Plan (1) Bladder instability: Code(s): N32.89 - Other specified disorders of bladder Category: Medical Plan Trial myrbetriq Medications: New mirabegron ER (Myrbetriq) 25 mg PO DAILY 30 days 30 tabs 1RF N30.10 - Interstitial cystitis (chronic) without hematuria, N32.81 - Overactive bladder, N32.89 - Other specified disorders of bladder, R35.1 - Nocturia, R39.15 - Urgency of urination Patient Instructions: Imaging studies, laboratory and physical exam results were discussed and review ed in detail. No major barriers to patient understanding were identified. An opportunity to ask questions regarding the treatment plan was provided. All questions were answered. The patient expressed understanding and agreement with the above treatment plan. The patient is aware they should contact our office by phone for worsening of their current condition or the appearance of new urologic symptoms. Compliance is encouraged with any medications and followup testing that is ordered. It is a privilege to participate in the urologic care of your patient. If you have any questions or concerns regarding treatment for the above conditions, or other urologic issues, please do not hesitate to contact me. The office telephone contact is [phone]. This note is constructed using voice recognition software. While every effort has been made to ensure accuracy accounts payable coordinator errors may have been included. Yours sincerely, Dr Kevin Longoria MD, JOSE LUIS [facility] - Urology Providers of Expert, Compassionate Care for the Genitourinary System Coding Level of Care Code Tele Est Pt Level 4 (90939) Diagnoses Bladder instability N32.89
== END 2023-12-25 11:51 | disposition home or self-care (01) ==
LOC: HO.HUSH 10:40
PROVIDERS: PCP Internal Medicine Endocrinology, Diabetes & Metabolism; Visit Provider Urology
DX: N32.89 Other specified disorders of bladder (principal)
CPT/HCPCS: 99214

== ENCOUNTER 2024-01-03 08:44 | Outpatient (REF) | payer MEDICARE, OTHER, SELFPAY ==
--- NOTE | ~2024-01-03 | XR_ITS ---
EXAMINATION: Pre-MRI ORBIT/paranasal sinuses screening. 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 COMPARISON: No priors. TECHNIQUE: AP, water's and lateral projection, orbits/paranasal sinuses. FINDINGS: No metallic foreign body overlapping the orbits or the included paranasal sinuses. No gross radiopaque foreign body. XR/XR pre mri screening IMPRESSION: Negative for metallic foreign body, orbits. Electronically signed by: Yariel Timmons MD 01/15/2024 09:52 AM RENAE ELLINGTON
== END 2024-01-03 08:45 | disposition home or self-care (01) ==
LOC: HO.XRAY 08:44
PROVIDERS: PCP Family Medicine; Visit Provider Radiology Diagnostic Radiology
DX: Z13.89 Encounter for screening for other disorder (principal)

== ENCOUNTER 2024-01-30 09:18 | Outpatient (REF) | payer MEDICARE, OTHER, SELFPAY ==
--- OUTSIDE RECORDS SUMMARY | 2024-01-30 09:21 | XMS_ITS | Continuity of Care Document ---
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 Name Role Phone Kerry AL, Marko Bills Primary Care Physician Encounter [facility] Date(s): 12/19/23 - 01/18/24 [facility] [address] [place], [place] [address] Encounter Type: Triage Allergies, Adverse Reactions, Alerts Substance Criticality Severity Reaction Reaction Severity Status Dust Low criticality Mild Acti ve Other Environmental Allergy 1 Low criticality Mild Active 1seasonal Immunizations Given and Recorded Vaccine Date Status Refusal Reason tetanus/diphtheria/pertussis, acel(Tdap) 1 03/18/18 Given pneumococcal 13-valent vaccine 2 02/23/17 Given influenza virus vaccine, inactivated 3 11/03/10 Gi adrienne influenza virus vaccine, inactivated 4 12/07/09 Gi adrienne influenza virus vaccine, inactivated 5 11/27/08 Gi adrienne tetanus-diphtheria toxoids (Td) 6 06/18/07 Given Pneumococcal Vaccine (oldterm) 7 02/12/67 Given 1Result Comment: [03/18/2018] [facility] 40391-291-03 2Result Comment: [02/23/2017] [facility]# [id number] 3Admin Note: VIM 09/06/10 4Admin Note: vis given 09-22-08 5Admin Note: vis given 09-22-08 6Admin Note: [place] 7Admin Note: VIM 11/17/08, PNEUMOVAX 23 Problem List Condition Confirmation Course Effective Dates Status Health St atus Informant Actinic keratosis Confirmed Active Anxiety Confirmed Active Coronary artery disease Confirmed Active Hearing loss Confirmed Active Hypertension Confirmed Active Cognitive impairment Confirmed Active Recurrent sinusitis Confirmed Active Squamous cell carcinoma of skin Confirmed 2011 Active Tubular adenoma Confirmed Active Varicose veins Confirmed 01/18/10 Active Social History Social History Type Response Smoking Status Never smoker entered on: 02/23/14 Sex Sex Representation Male (finding) Patient Care team information Care Team Personnel Name: Kerry AL, Marko Bills Position: [facility] Physician - Primary Care Member Role: PCP Address: [address] [place] [address] Telecom: Care Team Related Persons Name: SCAR HENDRIX Name: STEPHANIE GIBSON Name: STEPHANIE ORTIZ Insurance Providers Guarantor name: JUANI HENDRIX Health Plan Information #: 1 Payer: MEDICARE PART B OUTPT Member Number: NA Policy Number: NA Group Number: NA Health Plan Information #: 2 Payer: BELKIS AWAD SUP Member Number: NA Policy Number: NA Group Number: NA
--- OUTSIDE RECORDS SUMMARY | 2024-01-30 09:21 | XMS_ITS | Continuity of Care Document ---
Author Name [facility] Organization [facility] Care Team Providers Care Engine Assembler Name Role Phone [facility] Unavailable Unavailable Problems Combined list of problems from Department of Defense and Veterans Affairs facilities. It does not include entries that were removed or entered in error. Problem Status Onset Date Problem Type Date of Resolution Comments Source Anxiety disorder Active Condition [facility] Basal cell carcinoma of nose Active Condition Mar 04, 2021 Entered By: SNOW CARY Comment: follows [place] Derm [facility] Benign prostatic hypertrophy Active Condition [facility] Chronic insomnia Active Condition [facility] Chronic recurrent sinusitis Active Condition [facility] Coronary arteriosclerosis Active Condition [facility] Erectile dysfunction Active Condition [facility] Generalized anxiety disorder Active Condition [facility] Tinnitus Active Condition [facility] Mild cognitive impairment Inactive Condition 01/16/2022 [facility] Diagnosis: ICD-10-CM 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 Active Diagnosis [facility] Diagnosis: ICD-10-CM F41.1 Generalized anxiety disorder Active Diagnosis [facility] Diagnosis: ICD-10-CM Z46.0 Encounter for fit/adjst of spectacles and contact lenses Active Diagnosis [facility] Diagnosis: ICD-10-CM 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, bilateral, early dry stage Active Diagnosis [facility] Diagnosis: ICD-10-CM R25.1 Tremor, unspecified Active Diagnosis [facility] Diagnosis: ICD-10-CM F41.9 Anxiety disorder, unspecified Active Diagnosis [facility] Diagnosis: ICD-10-CM N52.9 Male erectile dysfunction, unspecified Active Diagnosis [facility] Diagnosis: ICD-10-CM H11.32 Conjunctival hemorrhage, left eye Active Diagnosis [facility] Diagnosis: ICD-10-CM Z00.01 Encounter for general adult medical exam w abnormal findings Active Diagnosis [facility] Diagnosis: ICD-10-CM 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 Medication Details Route Status Patient Instructions Prescription Expires Prescription Number Last Dispense Date Ordering Provider Order Date Order Qty Source ASPIRIN 81MG TAB,EC TAKE ONE TABLET BY MOUTH ONCE DAILY ORAL ACTIVE [facility]PH HESTER [facility] CARBOXYMETH YLCELLULOSE NA 0.5% SOLN,OPH INSTILL 1 DROP INTO EACH EYE THREE TIMES DAILY NEEDED FOR DRY EYE OPHTHA LMIC DISCONT INUED BY PROVIDE R 10/30/2024 [id number] Ayaz MEEK 2023 60 [facility] CARBOXYMETH YLCELLULOSE NA 0.5% SOLN,OPH INSTILL 1 DROP INTO EACH EYE THREE TIMES DAILY NEEDED FOR DRY EYE OPHTHA LMIC DISCONT INUED 10/18/2023 [id number] 4 Ayaz MEEK 2022 60 [facility] DEXAMETHASO NE 0.1%/TOBRAM YCIN 0.3% OINT,OPH APPLY THIN RIBBON INTO EACH EYE AT BEDTIME FOR INFLAMMA TION OF THE EYE OPHTHA LMIC ACTIVE 10/30/2024 [id number] 4 Ayaz MEEK 2023 1 [facility] EYELID CLEANSER,EY E SCRUB PAD USE 1 PAD TOPICALL Y ONCE DAILY BLEPHARI TIS TOPICA L ACTIVE 10/30/2024 [id number] 4 Ayaz MEEK 2023 90 [facility] FLUTICASONE PROPIONATE 50MCG/SPRAY SOLN,NASAL, 16GM INSTILL 2 SPRAYS INTO EACH NOSTRIL ONCE DAILY NASAL ACTIVE ALESSANDRO GUZMÁN NNIFER 2021 [facility] MELATONIN 5MG CAP/TAB TAKE TWO CAPSULE/ TABLET BY MOUTH AT BEDTIME FOR INSOMNIA ORAL 01/23/2024 [id number] 4 Annette KOHLER E 2023 180 [facility] MULTIVIT/OP HTH AREDS2/LUTE IN/ZEAXANTH IN CAP/TAB TAKE 1 CAPSULE BY MOUTH TWICE DAILY FOR VITAMIN SUPPLEME NTATION IN THE MORNING AND EVENING, WITH FOOD ORAL ACTIVE 10/30/2024 [id number] 4 [facility] OTHER CAP/TAB TAKE IVERMECT IN 12MG BY MOUTH ON SUNDAY ORAL ACTIVE ALESSANDRO GUZMÁN NNIFER 2021 [facility] PEG-400 0.4%/PROPYL ROYA GLYCOL 0.3% SOLN,OPH,UD INSTILL 1 DROP INTO EACH EYE FOUR TIMES A DAY FOR DRY EYES OPHTHA LMIC ACTIVE 01/01/2025 [id number] 4 [facility] PRIMIDONE 50MG TAB TAKE ONE TABLET BY MOUTH EVERY DAY TREMOR ORAL ACTIVE 05/24/2024 [id number] 4 MALAIKA WHEELER 2023 30 [place] [facility] PROPRANOLOL HCL 10MG TAB TAKE ONE TABLET BY MOUTH THREE TIMES A DAY ORAL ACTIVE 02/25/2024 [id number] 4 Annette KOHLER E 2023 180 [facility] SERTRALINE HCL 50MG TAB TAKE ONE TABLET BY MOUTH ONCE DAILY ANXIETY ORAL ACTIVE 11/22/2024 [id number] 4 Annette KOHLER E 2023 90 [facility] SERTRALINE HCL 50MG TAB TAKE ONE TABLET BY MOUTH ONCE DAILY ANXIETY ORAL DISCONT INUED 05/17/2024 [id number] 4 Annette KOHLER E 2023 90 [facility] SERTRALINE HCL 50MG TAB TAKE ONE-HALF TABLET BY MOUTH ONCE DAILY ANXIETY ORAL DISCONT INUED (EDIT) 03/06/2024 [id number] 4 Annette KOHLER E 2023 45 [facility] SERTRALINE HCL 50MG TAB TAKE ONE-HALF TABLET BY MOUTH ONCE DAILY ORAL DISCONT INUED (EDIT) 12/13/2023 [id number] 3 Annette KOHLER E 2022 45 [facility] SERTRALINE HCL 50MG TAB TAKE ONE-HALF TABLET BY MOUTH ONCE DAILY ORAL DISCONT INUED 01/17/2023 [id number] 3 Annette KOHLER E 2021 45 [facility] SILDENAFIL CITRATE 100MG TAB TAKE ONE TABLET BY MOUTH ONCE DAILY NEEDED TAKE 1 HOUR PRIOR TO SEXUAL ACTIVITY ORAL ACTIVE 05/23/2024 [id number] 4 RALPH HESTER 2023 18 [facility] SILDENAFIL CITRATE 100MG TAB TAKE ONE TABLET BY MOUTH ONCE DAILY NEEDED FOR ERECTILE DYSFUNCT ION TAKE 1 HOUR PRIOR TO SEXUAL ACTIVITY ORAL DISCONT INUED BY MIRTHA R 01/23/2024 [id number] 4 RALPH HESTER 2022 6 [facility] TADALAFIL 10MG TAB TAKE ONE TABLET BY MOUTH ONCE DAILY NEEDED FOR INABILIT Y TO HAVE AN ERECTION ORAL DISCONT INUED 10/19/2023 [id number] 3 RALPH HESTER 2022 6 [facility] TAMSULOSIN HCL 0.4MG CAP TAKE 2 CAPSULES BY MOUTH ONCE DAILY ORAL ACTIVE RALPH HESTER 2021 [facility] ZOLPIDEM TARTRATE 10MG TAB TAKE ONE TABLET BY MOUTH AT BEDTIME NEEDED FOR SLEEP ORAL ACTIVE 02/06/2024 [id number] 4 RALPH HESTER 2023 30 [facility] ZOLPIDEM TARTRATE 10MG TAB TAKE ONE TABLET BY MOUTH AT BEDTIME NEEDED FOR SLEEP ORAL DISCONT INUED (EDIT) 02/08/2023 [id number] 3 RALPH HESTER 2022 20 [facility] ZOLPIDEM TARTRATE 10MG TAB TAKE ONE TABLET BY MOUTH AT BEDTIME NEEDED FOR SLEEP ORAL 07/25/2023 [id number] 4 RALPH HESTER 2022 30 [facility] Allergies, Adverse Reactions, Alerts Combined list of allergies from Department of Defense and Veterans Affairs facilities. It does not include entries that were removed or entered in error. Substance Category Reaction Severity Reaction type Status Date Reported Comments Source CEFUROXIME Propensity to adverse reactions to drug (finding) Anxiety active 5 [facility] SILDENAFIL Propensity to adverse reactions to drug (finding) Dizziness active 3 [facility] [place] [facility] Immunizations Combined list of available immunizations from the Department of Defense and Veterans Affairs facilities. Immunization Series Date Given Administered By Site Reaction Lot Number CVX Code Drug Bed Spring Maker Status Comments Source TDAP 2021 115 complet ed [facility] INFLUENZA, SEASONAL, INJECTABLE 2017 141 complet ed [facility] Results Combined list of recent chemistry, hematology and other laboratory results from Department of Defense and Veterans Affairs, ranging from 15 months to all on record, depending upon the facility. Order Name Results Value Reference Range Date Interpretation Specimen Comments Source ANTI-SHYANNE PONEMA PALLIDUM IgG TREPONEMA PALLIDUM IGG AB [PRESENCE] IN SERUM NEGATIVE 05/31 Specimen Type: SERUM No comment entered. Ordering Provider: SHIRA WHEELER Report Released Date/Time: May 24, 2023 08:52 AM Reporting Lab: [place] [address] [address] [place] [phone] Performing Lab: [place] [address] [address] [place] [phone] [facility] VITAMIN B-12 & FOLATE FOLATE [MASS/VOLU ME] IN SERUM OR PLASMA 19.0 ng/mL 5.4 05/31 Specimen Type: SERUM No comment entered. Ordering Provider: SHIRA WHEELER Report Released Date/Time: May 24, 2023 08:52 AM Reporting Lab: [place] [address] [address] [place] [phone] Performing Lab: [place] [address] [address] [place] [phone] [facility] VITAMIN B-12 & FOLATE COBALAMIN (VITAMIN B12) [MASS/VOLU ME] IN SERUM OR PLASMA 489 pg/mL 218 05/31 Specimen Type: SERUM No comment entered. Ordering Provider: SHIRA WHEELER Report Released Date/Time: May 24, 2023 08:52 AM Reporting Lab: [place] [id number] [place] [phone] Performing Lab: [place] [address] [address] [place] [phone] [facility] HEMOGLOB IN A1C HEMOGLOBIN A1C/HEMOGL OBIN.TOTAL IN BLOOD 5.4 4.4 - 6.0 05/31 Specimen Type: BLOOD Comment: Values obtained from A1C measurement s can vary. For typical A1C assays, a reported value of 7.0 could actually be between 6.72 and 7.28 if measured by a reference method. A reported value of 9.0 could actually be between 8.73 and 9.27. Ref: http://www. ngsp.org/[place] Pdata.asp Ordering Provider: SHIRA WHEELER Report Released Date/Time: May 24, 2023 08:52 AM Reporting Lab: [facility] [address] [facility] [phone] Performing Lab: [facility] [address] [facility] [address] [facility] THYROID STIMULAT ING HORMONE THYROTROPI N [UNITS/VOL UME] IN SERUM OR PLASMA 1.658 u[IU]/mL 0.4600 - 4.7000 05/31 Specimen Type: PLASMA No comment entered. Ordering Provider: SHIRA WHEELER Report Released Date/Time: May 24, 2023 08:52 AM Reporting Lab: [facility] [address] [facility] [address] Performing Lab: [facility] [address] [facility] [address] [facility] HIV ANTIGEN- ANTIBODY PANEL HIV-1/2 ANTIGEN-AN TIBODY Non Reactive 05/31 Specimen Type: SERUM Comment: Nonreactive . HIV-1 p24 Ag and HIV-1/HIV-2 Ab not detected. Confirmatio n HIV 1/2 not indicated Ordering Provider: SHIRA WHEELER Report Released Date/Time: May 24, 2023 08:52 AM Reporting Lab: [facility] [address] [facility] [phone] Performing Lab: [facility] [address] [facility] [phone] [facility] HIV ANTIGEN- ANTIBODY PANEL HIV-1 CONFIRMATI ON canc 05/31 Specimen Type: SERUM Comment: Nonreactive . HIV-1 p24 Ag and HIV-1/HIV-2 Ab not detected. Confirmatio n HIV 1/2 not indicated Ordering Provider: SHIRA WHEELER Report Released Date/Time: May 24, 2023 08:52 AM Reporting Lab: [facility] [address] [facility] [phone] Performing Lab: [facility] [address] [facility] [address] [facility] HIV ANTIGEN- ANTIBODY PANEL HIV-2 ANTIBODY CONFIRM canc 05/31 Specimen Type: SERUM Comment: Nonreactive . HIV-1 p24 Ag and HIV-1/HIV-2 Ab not detected. Confirmatio n HIV 1/2 not indicated Ordering Provider: WHEELER,SHIRA N A Report Released Date/Time: May 24, 2023 08:52 AM Reporting Lab: [facility] [address] [facility] [phone] Performing Lab: [facility] [address] [facility] [address] [facility] THYROID T4 FREE(FT4 ) THYROXINE (T4) FREE [MASS/VOLU ME] IN SERUM OR PLASMA 0.93 ng/dL 0.6 - 1.6 01/22 Specimen Type: SERUM No comment entered. Ordering Provider: NOEMÍ HESTER Report Released Date/Time: Jan 10, 2023 10:15 AM Reporting Lab: [facility] [address] [facility] [phone] Performing Lab: [facility] [address] [facility] [address] [facility] TSH THYROTROPI N [UNITS/VOL UME] IN SERUM OR PLASMA 1.27 u[IU]/mL 0.35 - 5.00 01/22 Specimen Type: SERUM No comment entered. Ordering Provider: NOEMÍ HESTER Report Released Date/Time: Jan 10, 2023 10:15 AM Reporting Lab: [facility] [address] [facility] [phone] Performing Lab: [facility] [address] [facility] [address] [facility] CBC LEUKOCYTES [#/VOLUME] IN BLOOD BY AUTOMATED COUNT 5.44 10*3/uL 4.50 - 11.00 01/22 Specimen Type: BLOOD No comment entered. Ordering Provider: NOEMÍ HESTER Report Released Date/Time: Jan 10, 2023 10:15 AM Reporting Lab: [facility] [address] [facility] [address] Performing Lab: [facility] [address] [facility] [address] [facility] [place] [facility] CBC ERYTHROCYT ES [#/VOLUME] IN BLOOD BY AUTOMATED COUNT 3.75 10*6/uL 4.23 - 5.66 01/22 L Specimen Type: BLOOD No comment entered. Ordering Provider: NOEMÍ HESTER Report Released Date/Time: Jan 10, 2023 10:15 AM Reporting Lab: [facility] [address] [facility] [address] Performing Lab: [facility] [address] [facility] [address] [facility] [place] [facility] CBC HEMOGLOBIN [MASS/VOLU ME] IN BLOOD 12.4 g/dL 12.8 - 17 01/22 L Specimen Type: BLOOD No comment entered. Ordering Provider: NOEMÍ HESTER Report Released Date/Time: Jan 10, 2023 10:15 AM Reporting Lab: [facility] [place] [facility] [address] [facility] [address] Performing Lab: [facility] [place] [facility] [address] [facility] [address] [facility] [place] [facility] CBC HEMATOCRIT [VOLUME FRACTION] OF BLOOD BY AUTOMATED COUNT 37.0 39.2 - 50.4 01/22 L Specimen Type: BLOOD No comment entered. Ordering Provider: NOEMÍ HESTER Report Released Date/Time: Jan 10, 2023 10:15 AM Reporting Lab: [facility] [address] [facility] [address] Performing Lab: [facility] [place] [facility] [address] [facility] [address] [facility] [place] [facility] CBC MCV [ENTITIC VOLUME] BY AUTOMATED COUNT 98.7 fL 82 - 99 01/22 Specimen Type: BLOOD No comment entered. Ordering Provider: NOEMÍ HESTER Report Released Date/Time: Jan 10, 2023 10:15 AM Reporting Lab: [facility] [address] [facility] [phone] Performing Lab: [facility] [address] [facility] [address] [facility] [place] [facility] CBC MCHC [MASS/VOLU ME] BY AUTOMATED COUNT 33.5 g/dL 30.8 - 35.1 01/22 Specimen Type: BLOOD No comment entered. Ordering Provider: NOEMÍ HESTER Report Released Date/Time: Jan 10, 2023 10:15 AM Reporting Lab: [facility] [place] [facility] [address] [facility] [address] Performing Lab: [facility] [place] [facility] [address] [facility] [address] [facility] [place] [facility] CBC PLATELETS [#/VOLUME] IN BLOOD BY AUTOMATED COUNT 331 10*3/uL 140 - 360 01/22 Specimen Type: BLOOD No comment entered. Ordering Provider: NOEMÍ HESTER Report Released Date/Time: Jan 10, 2023 10:15 AM Reporting Lab: [facility] [place] [address] [address] Performing Lab[facility] [place] [facility] [address] [facility] [address] [facility] [place] [facility] CBC ERYTHROCYT E DISTRIBUTI ON WIDTH [RATIO] BY AUTOMATED COUNT 11.7 12.0 - 16.0 01/22 L Specimen Type: BLOOD No comment entered. Ordering Provider: NOEMÍ HESTER Report Released Date/Time: Jan 10, 2023 10:15 AM Reporting Lab: [facility] [place] [address] [address] Performing Lab: [facility] [place] [facility] [address] [facility] [address] [facility] [facility] CBC MCH [ENTITIC MASS] BY AUTOMATED COUNT 33.1 pg 26.2 - 32.6 01/22 H Specimen Type: BLOOD No comment entered. Ordering Provider: NOEMÍ HESTER Report Released Date/Time: Jan 10, 2023 10:15 AM Reporting Lab: [facility] [place] [address] [address] Performing Lab: [facility] [place] [address] [address] [facility] [place] [facility] BASIC METABOLI C PANEL (fasting ) UREA NITROGEN [MASS/VOLU ME] IN SERUM OR PLASMA 15 mg/dL 7 - 25 01/22 Specimen Type: SERUM No comment entered. Ordering Provider: NOEMÍ HESTER Report Released Date/Time: Jan 10, 2023 10:15 AM Reporting Lab: [facility] [address] [address] Performing Lab: [facility] [place] [address] [address] [facility] BASIC METABOLI C PANEL (fasting ) GLUCOSE [MASS/VOLU ME] IN SERUM OR PLASMA 102 mg/dL 65 - 100 01/22 H Specimen Type: SERUM No comment entered. Ordering Provider: NOEMÍ HESTER Report Released Date/Time: Jan 10, 2023 10:15 AM Reporting Lab: [facility] [address] [address] Performing Lab: [facility] [address] [facility] BASIC METABOLI C PANEL (fasting ) SODIUM [MOLES/VOL UME] IN SERUM OR PLASMA 139 mmol/L 135 - 145 01/22 Specimen Type: SERUM No comment entered. Ordering Provider: NOEMÍ HESTER Report Released Date/Time: Jan 10, 2023 10:15 AM Reporting Lab: [facility] [place] [address] [address] Performing Lab: [facility] [place] [address] [address] [facility] [facility] BASIC METABOLI C PANEL (fasting ) POTASSIUM [MOLES/VOL UME] IN SERUM OR PLASMA 4.4 mmol/L 3.5 - 5.0 01/22 Specimen Type: SERUM No comment entered. Ordering Provider: NOEMÍ HESTER Report Released Date/Time: Jan 10, 2023 10:15 AM Reporting Lab: [facility] [place] [facility] [address] [facility] [address] Performing Lab: [facility] [place] [facility] [address] [facility] [address] [facility] [place] [facility] BASIC METABOLI C PANEL (fasting ) CHLORIDE [MOLES/VOL UME] IN SERUM OR PLASMA 105 mmol/L 100 - 110 01/22 Specimen Type: SERUM No comment entered. Ordering Provider: NOEMÍ HESTER Report Released Date/Time: Jan 10, 2023 10:15 AM Reporting Lab: [facility] [place] [facility] [address] [facility] [address] Performing Lab: [facility] [place] [facility] [address] [facility] [address] [facility] [place] [facility] BASIC METABOLI C PANEL (fasting ) CARBON DIOXIDE, TOTAL [MOLES/VOL UME] IN SERUM OR PLASMA 25 meq/L 20 - 30 01/22 Specimen Type: SERUM No comment entered. Ordering Provider: NOEMÍ HESTER Report Released Date/Time: Jan 10, 2023 10:15 AM Reporting Lab: [facility] [place] [facility] [address] [facility] [address] Performing Lab: [facility] [place] [facility] [address] [facility] [address] [facility] [place] [facility] BASIC METABOLI C PANEL (fasting ) CREATININE [MASS/VOLU ME] IN SERUM OR PLASMA 0.83 mg/dL 0.50 - 1.40 01/22 Specimen Type: SERUM No comment entered. Ordering Provider: NOEMÍ HESTER Report Released Date/Time: Jan 10, 2023 10:15 AM Reporting Lab: [facility] [place] [facility] [address] [facility] [address] Performing Lab: [facility] [place] [facility] [address] [facility] [address] [facility] [place] [facility] BASIC METABOLI C PANEL (fasting ) GLOMERULAR FILTRATION RATE/1.73 SQ M.PREDICTE D [VOLUME RATE/AREA] IN SERUM, PLASMA OR BLOOD BY CREATININE -BASED FORMULA (CKD-EPI 2020) 90 mL/min 60 01/22 Specimen Type: SERUM No comment entered. Ordering Provider: NOEMÍ HESTER Report Released Date/Time: Jan 10, 2023 10:15 AM Reporting Lab: [facility] [place] [facility] [address] [facility] [address] Performing Lab: [facility] [place] [facility] [address] [facility] [address] [facility] HEMOGLOB IN A1C PANEL HEMOGLOBIN A1C/HEMOGL OBIN.TOTAL IN BLOOD BY HPLC 5.4 4.0 - 5.6 01/22 Specimen Type: BLOOD Comment: Values obtained from A1C measurement s can vary. For atypical A1C assays, a reported value of 7.0 could actually be between 6.72 and 7.28 if measured by a reference method. A reported value of 9.0 could actually be between 8.73 and 9.27. Ref: http://www. [email or web address]/[place] Pdata.asp Ordering Provider: NOEMÍ HESTER Report Released Date/Time: Jan 10, 2023 10:15 AM Reporting Lab: [facility]CH[facility]AT[facility] [place] [facility] [address] [facility] [address] Performing Lab: [facility] [place] [facility] [address] [facility] [address] [facility] Vital Signs Combined list of inpatient and outpatient Vital Signs from Department of Defense and Veterans Affairs, ranging from 12 months to all on record, depending upon the facility. Vital Sign Value Date Comments Source SYSTOLIC BLOOD PRESSURE 123 11/21/19 24 15:26:05 [facility] DIASTOLIC BLOOD PRESSURE 79 024 15:26:05 [facility] [place] [facility] PULSE OXIMETRY 97 11/21/2023 15:26:05 [facility] [place] [facility] WEIGHT 150 11/21/2023 15:26:05 [facility] [place] [facility] BMI 23kg/m2 11/21/2023 15:26:05 [facility] PAIN 1 11/21/2023 15:26:05 [facility] TEMPERATURE 98.4 11/21/2023 15:26:05 [facility] PULSE 68 11/21/2023 15:26:05 [facility] RESPIRATION 16 11/21/2023 15:26:05 [facility] [place] [facility] SYSTOLIC BLOOD PRESSURE 121 04/11/19 13:55:03 [facility] DIASTOLIC BLOOD PRESSURE 74 024 13:55:03 [facility] PULSE OXIMETRY 98 04/11/2023 13:55:03 [facility] PAIN 3 04/11/2023 13:55:03 [facility] TEMPERATURE 97.8 04/11/2023 13:55:03 [facility] PULSE 68 04/11/2023 13:55:03 [facility] RESPIRATION 18 04/11/2023 13:55:03 [facility] Encounters Combined list of: 1) Encounters from Department of [facility] facilities going back up to thelast 18 months. 2) Encounters from the Department of [facility] facilities going back up to 280 months. Location Location Details Encounter Type Encounter Number Reason For Visit Attending Provider ADM Date DC Date Status Disposition Source [facility] Outpatient Encounter [id number] 08/08 [facility] [facility] Outpatient Encounter [id number] 08/08 [facility] OFFICE O/P EST LOW 20-29 MIN [id number] Diagnos is: ICD-10- CM I25.10 Athscl heart disease of [place] coronar y artery w/o ang pctrs<b r/> Delia HESTER 08/11 [facility] OFFICE O/P EST SF 10-19 MIN [id number] Diagnos is: ICD-10- CM H52.7 Unspeci fied disorde r of refract ion<br/ > LISA PEDERSENSA 09/06 [facility] Outpatient Encounter [id number] 09/06 [facility] [place] FIT SPECTACLES BIFOCAL [id number] Diagnos is: ICD-10- CM Z46.0 Encount er for fit/adj st of spectac les and contact lenses< br/> Annette AVALOS R 09/08 [facility] Outpatient Encounter [id number] 09/12 [facility] [place] OFFICE O/P EST MOD 30-39 MIN [id number] Diagnos is: ICD-10- CM Z00.01 Encount er for general adult medical exam w abnorma l finding s
Delia HESTER 10/12 [facility] Outpatient Encounter [id number] SVETLANA WHEELER R 10/17 [facility] [place] OFFICE O/P EST LOW 20-29 MIN [id number] Diagnos is: ICD-10- CM H11.32 Conjunc tival hemorrh age, left eye<br/ > TALIA MEEK 10/17 [facility] [place] [place] QNHP OL DIG ASSMT&MGMT 5-10 [id number] Diagnos is: ICD-10- CM N52.9 Male erectil e dysfunc tion, unspeci fied
HARISH ANDERSON IE 10/18 [facility] Out[facility] Encounter [id number] JAVIER CARNEY IE B 11/10 [facility] En[facility] [id number] 11/14 [facility] Encounter [id number] 12/08 [facility] OFFICE O/P EST HI 40-54 MIN [id number] Diagnos is: ICD-10- CM F41.1 General ized anxiety disorde r
ALESSANDRO KOHLERCA E 12/12 [facility] En[facility] [id number] 01/17 [facility] OFF[facility] O/P EST MOD 30-39 MIN [id number] Diagnos is: ICD-10- CM F41.1 General ized anxiety disorde r
Delia HESTER 01/22 [facility] CASE MANAGEMENT [id number] SUZY SHULTZ IEL A 01/22 [facility] Out[facility] Encounter [id number] 01/22 [facility] Encounter [id number] 01/24 [facility] [place] Outpatient Encounter [id number] 01/26 [facility] CASE MANAGEMENT [id number] TEETEE ABEL A 02/01 [facility] OFF[facility] O/P EST MOD 30 MIN [id number] Diagnos is: ICD-10- CM F41.1 General ized anxiety disorde r
ALESSANDRO KOHLER SSICA E 03/06 [facility] Outpatient Encounter [id number] 04/10 [facility] Outpatient Encounter [id number] 04/11 [facility] OFF[facility] O/P EST MOD 30 MIN [id number] Diagnos is: ICD-10- CM F41.1 General ized anxiety disorde r
ALESSANDRO KOHLER SSICA E 05/07 [facility] En[facility] [id number] 05/08 [facility] OFF[facility] O/P EST MOD 30 MIN [id number] Diagnos is: ICD-10- CM F41.9 Anxiety disorde r, unspeci fied
ALESSANDRO KOHLER SSICA E 05/16 [facility] Encounter [id number] 05/22 [facility] [place] OFFICE O/P NEW MOD 45 MIN [id number] Diagnos is: ICD-10- CM R25.1 Tremor, unspeci fied
SCOTT WHEELER IN A 05/23 [facility] Outpatient Encounter [id number] 07/03 [facility] Outpatient Encounter [id number] 08/02 [facility] Outpatient Encounter [id number] 08/19 [facility] OFFICE O/P EST MOD 30 MIN [id number] Diagnos is: ICD-10- CM F41.1 General ized anxiety disorde r
ALESSANDRO KOHLER SSICA E 10/24 [facility] OFFICE O/P [place] HI 40 MIN [id number] Diagnos is: ICD-10- CM F41.1 General ized anxiety disorde r
ALESSANDRO KOHLER SSICA E 10/24 [facility] OFFICE O/P EST MOD 30 MIN [id number] Diagnos is: ICD-10- CM 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, bilater al, early dry stage<b r/> FANTASMA,SD JEREMIAH 10/29 [facility] FIT SPECTACLES BIFOCAL [id number] Diagnos is: ICD-10- CM Z46.0 Encount er for fit/adj st of spectac les and contact lenses< br/> TALIA MEEK 11/01 [facility] Outpatient Encounter [id number] 11/04 [facility] OFFICE O/P EST MOD 30 MIN [id number] Diagnos is: ICD-10- CM F41.1 General ized anxiety disorde r
Delia HESTER 11/20 [facility] Encounter [id number] 11/20 [facility] Outpatient Encounter [id number] 12/12 [facility] OFFICE O/P EST HI 40 MIN [id number] Diagnos is: ICD-10- CM F41.1 General ized anxiety disorde r
ALESSANDRO KOHLER SSICA E 12/26 [facility] INTRM OPH EXAM EST PATIENT [id number] 1. Diagnos is: ICD-10- CM 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
TALIA MEEK 12/31 [facility] [place] Social History Combined list of available smoking, tobacco, and other social history from Department of Defense and Veterans Affairs facilities. Social History Type Response Date Comment Sourc e Tobacco smoking status NHIS UT-TOBACCO NEVER USED 11/21/2023 [facility] History of tobacco use UT-TOBACCO NEVER USED 10/12/2022 [facility] History of tobacco use UT-TOBACCO NEVER USED 03/03/2021 [facility] of [facility] 07/30/2019 [facility] [place] [facility] History of tobacco use UT-TOBACCO NEVER USED 03/20/2018 [facility] History of tobacco use LIFETIME NON-TOBACCO USER 12/14/2016 [facility] [place] [facility] History of tobacco use LIFETIME NON-TOBACCO USER 12/14/2014 [facility] [place] [facility] Plan of Care List of future care activities from Department of Veterans Affairs facilities. Additional future care activities may be listed in the Assessment and Plan section. Date/Time Care Activity Care Activity Detail Facili ty 03/27/2024 AMBULATORY - PSYCHIATRY AMBULATORY - PSYC HIATRY [facility] [facility] 01/18/2024 Laboratory - Actuarial Internship ry Order BASIC METABOLIC PANEL (non-fasting) BLOOD (SST-SERUM) [facility] [place] [facility] 01/18/2024 Laboratory - Actuarial Internship ry Order LIVER FUNCTION BLOOD (SST-SERUM) [facility] [place] [facility] 01/18/2024 Laboratory - Actuarial Internship ry Order LIPID PANEL, NON FASTING BLOOD (SST-SERUM) [facility] [place] [facility] 01/18/2024 Laboratory - Actuarial Internship ry Order CBC BLOOD (LAV-BLOOD) [facility]
--- OUTSIDE RECORDS SUMMARY | 2024-01-30 09:21 | XMS_ITS | Encounter Summary ---
Author Name [facility] [place] Organization [facility] [place] Address [address] [place] [id number] Care Team Providers Care Medical Scientific Liaison Name Role Phone RALPH HESTER Primary Care Provider Layton cuellar Insurance Providers: All historical and current Section Date Range: From patient's date of to the date document was created. This section includes the names of all active insurance providers for the patient. Insurance Provider Type of Coverage Plan Name Start of Policy Coverage End of Policy Coverage Group Number Member ID Insurance Provider's Telephone Number Policy Alarcon's Name Patient's Relationship to Policy Alarcon [facility] MEDICARE SUPPLEMEN [place] June 12, 2013 PLANF [id number] JUANI HENDRIX PATIENT [facility] MEDICARE SUPPLEMEN [facility] Apr 12, 2012 MEDICAR E SUPPLEM E [id number] JUANI HENDRIX PATIENT MEDICARE (WNR) MEDICARE (M) PART B Feb 13, 2012 PART B [id number] JUANI HENDRIX PATIENT MEDICARE (WNR) MEDICARE (M) PART B Feb 13, 2012 PART B [id number] JUANI HENDRIX PATIENT MEDICARE (WNR) MEDICARE (M) PART B Feb 13, 2012 PART B [id number] JUANI HENDRIX PATIENT MEDICARE (WNR) MEDICARE (M) PART B Feb 13, 2012 PART B [id number] JUANI HENDRIX PATIENT MEDICARE (WNR) MEDICARE (M) PART A May 14, 2011 PART A [id number] [id number] JUANI HENDRIX PATIENT MEDICARE (WNR) MEDICARE (M) PART A May 14, 2011 PART A [id number] JUANI HENDRIX PATIENT MEDICARE (WNR) MEDICARE (M) PART A May 14, 2011 PART A [id number] JUANI HENDRIX PATIENT MEDICARE (WNR) MEDICARE (M) PART A May 14, 2011 PART A [id number] JUANI HENDRIX PATIENT MEDICARE PART D (WNR) PRESCRIPT ION PART D Feb 12, 2021 PART D [id number] [phone] JUANI HENDRIX PATIENT Selected Encounter This section includes the information on record at [place] for the Encounter. Date/Time Encounter Type Encounter Description Reason Pro vider Source Feb 01, 2023 11:59 AM CASE MANAGEMENT ADMIN PAT ACTIVTIES (MASNONCT) FCO ABEL Encounter Template Text not used by [place] Plan of Treatment: Future Appointments (+ 6 months) and Future Tests (+/- 45 days) The Plan of Treatment section includes future care activities for the patient from all [place] treatmentfacilities. This section includes future appointments and future orders which are active, pending or scheduled. Future Appointments This section includes appointments that were scheduled to occur 6 months from the date of the Encounter, up to a maximum of 20 appointments. The data comes from all [place] treatment facilities. Appointment Date/Time Appointment Type Appointme nt Facility Name Mar 06, 2023 10:30 AM [facility] May 08, 2023 10:30 AM [facility] - [facility]AT[facility] May 17, 2023 10:00 AM [facility] May 24, 2023 08:00 AM AMBULATORY - NEUROLOGY [facility] Jun 01, 2023 09:30 AM AMBULATORY - NONE [facility]) June 29, 2023 12:15 PM AMBULATORY - NONE [facility] Lab Results: +/- 30 days of the encounter This section includes the Chemistry and Hematology Lab Results on record with [place] for the patient. Radiology Reports and Pathology Reports are provided separately, in subsequent sections. Lab Results This section contains the Chemistry/Hematology Results that were resulted 30 days before or 30 daysafter the date of the Encounter. Date/Time Source Result Type Result - Unit Interpretation Reference Range Comment Jan 22, 2023 11:28 AM [facility] THYROID T4 FREE(FT4) Specimen Type: SERUM No comment entered. Ordering Provider: ENEIDA HESTER AM Report Released Date/Time: Jan 10, 2023 10:15 AM Reporting Lab: [facility] [address] [address] Performing Lab: [facility] [address] [address] THYROID T4 FREE(FT4) 0.93 ng/dL 0.6-1.6 Jan 22, 2023 11:28 AM [facility] TSH Specimen Type: SERUM No comment entered. Ordering Provider: ENEIDA HESTER AM Report Released Date/Time: Jan 10, 2023 10:15 AM Reporting Lab: [facility] [address] Performing Lab: [facility] [address] TSH 1.27 u[IU]/mL 0.35-5.00 Jan 22, 2023 11:28 AM [facility] CBC Specimen Type: BLOOD No comment entered. Ordering Provider: ENEIDA HESTER AM Report Released Date/Time: Jan 10, 2023 10:15 AM Reporting Lab: [facility] [address] Performing Lab: [facility] [address] WBC 5.44 10*3/uL 4.50-11.00 RBC 3.75 10*6/uL L 4.23-5.66 HGB 12.4 g/dL L 12.8-17 HCT 37.0 L 39.2-50.4 MCV 98.7 fL 82-99 MCHC 33.5 g/dL 30.8-35.1 PLT 331 10*3/uL 140-360 RDW-CV 11.7 L 12.0-16.0 MCH 33.1 pg H 26.2-32.6 Jan 22, 2023 11:28 AM [facility] LIPID PANEL FASTING Specimen Type: SERUM No comment entered. Ordering Provider: ENEIDA HESTER AM Report Released Date/Time: Jan 10, 2023 10:15 AM Reporting Lab: [address] [address] Performing Lab: [address] [address] CHOLESTEROL 180 mg/dL TRIGLYCERIDE 96 mg/dL 0-150 LDL calculated 110 mg/dL 0-129 CHOL/HDL 3.5 HDL CHOLESTEROL 51 mg/dL 40-60 Jan 22, 2023 11:28 AM [facility] LIVER FUNCTION Specimen Type: SERUM No comment entered. Ordering Provider: ENEIDA HESTER AM Report Released Date/Time: Jan 10, 2023 10:15 AM Reporting Lab: [address] [address] Performing Lab: [address] [address] PROTEIN,TOTAL 6.5 g/dL 6.0-8.3 ALBUMIN 3.7 g/dL 3.5-5.0 ALKALINE PHOSPHATASE 73 U/L 40-150 AST 16 U/L 5-34 ALT 9 U/L BILIRUBIN, TOTAL 0.6 mg/dL 0.2-1.2 Jan 22, 2023 11:28 AM [facility] BASIC METABOLIC PANEL (fasting) Specimen Type: SERUM No comment entered. Ordering Provider: ENEIDA HESTER AM Report Released Date/Time: Jan 10, 2023 10:15 AM Reporting Lab: [address] [address] Performing Lab: [address] [place] [address] UREA NITROGEN 15 mg/dL 7-25 GLUCOSE 102 mg/dL H 65-100 SODIUM 139 mmol/L 135-145 POTASSIUM 4.4 mmol/L 3.5-5.0 CHLORIDE 105 mmol/L 100-110 CO2 25 meq/L 20-30 CREATININE, Serum 0.83 mg/dL 0.50-1.40 eGFR(CKD-EPI 2020) 90 mL/min >60 Jan 22, 2023 11:28 AM [facility] HEMOGLOBIN A1C PANEL Specimen Type: BLOOD Comment: Values obtained from A1C measurements can vary. For atypical A1C assays, a reported value of 7.0 could actually be between 6.72 and 7.28 if measured by a reference method. A reported value of 9.0 could actually be between 8.73 and 9.27. Ref: http://www.[employer] p.org/CAPdata. asp Ordering Provider: ENEIDA HESTER AM Report Released Date/Time: Jan 10, 2023 10:15 AM Reporting Lab: [address] [address] Performing Lab: [address] [address] HEMOGLOBIN A1C 5.4 4.0-5.6 Jan 22, 2023 11:28 AM [facility] FERRITIN Specimen Type: SERUM No comment entered. Ordering Provider: ENEIDA HESTER AM Report Released Date/Time: Jan 22, 2023 11:00 AM Reporting Lab: [facility] [address] Performing Lab: [facility] [address] FERRITIN 148 ng/mL 20-300 Jan 22, 2023 11:28 AM [facility] IRON & TIBC PANEL Specimen Type: SERUM No comment entered. Ordering Provider: ENEIDA HESTER AM Report Released Date/Time: Jan 22, 2023 11:00 AM Reporting Lab: [address] [address] Performing Lab: [facility] [place] [address] [address] TIBC 289 ug/dL 204-475 IRON 107 ug/dL 40-160 Transferrin Saturation 37.0 20.0-50.0 Encounter Notes: All associated encounter notes This section contains the clinical notes associated to the Encounter. Date/Time Encounter Note(s) Provider Source Feb 01, 2023 11:59 AM TRANSFER SUMMARIZA TION NOTE: LOCAL TITLE: TRAVELING COORDINATOR CONSULT NOTE STANDARD TITLE: TRANSFER SUMMARIZATION NOTE DATE OF NOTE: FEB 01, 2023@11:59 ENTRY DATE: FEB 01, 2023@11:59:58 AUTHOR: FCO ABEL EXP COSIGNER: URGENCY: STATUS: COMPLETED scheduled: 04/11/2023 13:30 TPA NEURO RES 12 NEW /nicolasa/ FCO ABEL R.N. REGISTERED NURSE Signed: 02/01/2023 12:00 FCO ABEL [facility]
--- OUTSIDE RECORDS SUMMARY | 2024-01-30 09:21 | XMS_ITS | Continuity of Care Document ---
Author Organization [facility] Address [address] [place] [address]- Care Team Providers Care Uranium Processing Supervisor Name Role Phone Kerry AL, Marko Bills Primary Care Physician Encounter [facility] Date(s): 12/17/23 - 01/16/24 [facility] [address] [place], [place] [address] Encounter Type: Triage Allergies, Adverse Reactions, Alerts [...] (oldterm) 7 02/12/67 Given 1Result Comment: [03/18/2018] [facility] [id number] 2Result Comment: [02/23/2017] [facility]# [id number] 3Admin Note: VIM 09/06/10 4Admin Note: vis [...] Personnel Name: Kerry AL, Marko Bills Position: [facility] Physician - Primary Care Member Role: PCP Address: [address] [place] [address] Telecom: Care Team Related Persons Name: SCAR [...]
--- OUTSIDE RECORDS SUMMARY | 2024-01-30 09:21 | XMS_ITS | Continuity of Care Document ---
Author Organization [facility] Address [address] [address]- [facility] Name Relationship Address Phone SCAR HENDRIX child Unknown Unavailable VAN KAMPEN, STEPHANIE spouse Unknown Unavailab le KAMPEN, STEPHANIE spouse Unknown Unavailable SIMEON, SAMUEL spouse Unknown Unavaila ble SIMEON, STEPHANIE spouse Unknown Unavailable SIMEON, SAMUEL Personal Relationship Unknown Unavailable SIMEON, SAMUEL Personal Relationship Unknown Unavailable SIMEON, SAMUEL Personal Relationship Unknown Unavailable Care Team Providers Care Pediatric Clinical Dietician Name Role Phone Kerry AL, Marko Bills Primary Care Physician Encounter [facility] Date(s): 12/18/23 - 01/17/24 [facility] [address] [address] Attending Physician: Linwood Nolasco Admitting Physician: Linwood Nolasco Referring Physician: Linwood Nolasco Encounter Type: Triage Allergies, Adverse Reactions, Alerts [...] (oldterm) 7 02/12/67 Given 1Result Comment: [03/18/2018] [facility] [id number] 2Result Comment: [02/23/2017] [facility]# [id number] 3Admin Note: VIM 7/26/11 4Admin Note: vis given 09-22-08 5Admin Note: vis given 09-22-08 6Admin Note: [place]. [facility] 7Admin Note: VIM 11/17/08, PNEUMOVAX 23 Problem [...] Care team information Care Team Personnel Name: Marko Payne MD Position: [facility] Physician - Primary Care Member Role: PCP Address: [address] [place] [address] Telecom: Care Team Related Persons Name: SCAR HENDRIX Name: STEPHANIE GIBSON Name: STEPHANIE ORTIZ Insurance Providers Guarantor name: JUANI HENDRIX Health Plan Information #: 1 Payer: MEDICARE PART B OUTPT Member Number: NA Policy Number: NA Group Number: NA Health Plan Information #: 2 Payer: BELKIS GRANDE Member Number: NA Policy Number: NA Group Number: NA
--- OUTSIDE RECORDS SUMMARY | 2024-01-30 09:22 | XMS_ITS | Encounter Summary ---
Author Name [facility] Organization [facility] [place] Address [address] [place] [id number] Care Team Providers Care Foley Artist Name Role Phone RALPH HESTER [facility] Insurance Providers: All historical and current Section Date Range: From patient's date of to the date document was created. This section includes the names of all active insurance providers for the patient. Insurance Provider Type of Coverage Plan Name Start of Policy Coverage End of Policy Coverage Group Number Member ID Insurance Provider's Telephone Number Policy Alarcon's Name Patient's Relationship to Policy Alarcon [facility] MEDICARE SUPPLEMEN JR [facility] June 12, 2013 PLANF [id number] JUANI HENDRIX PATIENT [facility] MEDICARE SUPPLEMEN JR [facility] Apr 12, 2012 MEDICAR E SUPPLEM E [id number] JUANI HENDRIX PATIENT MEDICARE (WNR) MEDICARE (M) PART B Feb 13, 2012 PART B [id number] JUANI HENDRIX PATIENT MEDICARE (WNR) MEDICARE (M) PART B Feb 13, 2012 PART B [id number] JUANI HENDRIX PATIENT MEDICARE (WNR) MEDICARE (M) PART B Feb 13, 2012 PART B [id number] JUANI HENDRIX PATIENT MEDICARE (WNR) MEDICARE (M) PART B Feb 13, 2012 PART B [id number] JUANI HENDRIX PATIENT MEDICARE (WNR) MEDICARE (M) PART A May 14, 2011 PART A [id number] JUANI HENDRIX PATIENT MEDICARE (WNR) MEDICARE (M) PART A May 14, 2011 PART A [id number] JUANI HENDRIX PATIENT MEDICARE (WNR) MEDICARE (M) PART A May 14, 2011 PART A [id number] JUANI HENDRIX PATIENT MEDICARE (WNR) MEDICARE (M) PART A May 14, 2011 PART A [id number] JUANI HENDRIX PATIENT MEDICARE PART D (WNR) PRESCRIPT ION PART D Feb 12, 2021 PART D [id number] JUANI HENDRIX PATIENT Selected Encounter This section includes the information on record at [place] for the Encounter. Date/Time Encounter Type Encounter Description Reason Pro vider Source May 09, 2023 12:46 PM Outpatient Encounter PRIMARY CARE/MEDICINE IHE Encounter Template Text not used by [place] Plan of Treatment: Future Appointments (+ 6 months) and Future Tests (+/- 45 days) The Plan of Treatment section includes future care activities for the patient from all [place] treatmentfacilities. This section includes future appointments and future orders which are active, pending or scheduled. Future Appointments This section includes appointments that were scheduled to occur 6 months from the date of the Encounter, up to a maximum of 20 appointments. The data comes from all [place] treatment facilities. Appointment Date/Time Appointment Type Appointme nt Facility Name May 17, 2023 10:00 AM AMBULATORY - PSYCHIATRY [facility] [place] [facility] May 24, 2023 08:00 AM AMBULATORY - NEUROLOGY [facility] Jun 01, 2023 09:30 AM AMBULATORY - NONE [facility] June 29, 2023 12:15 PM AMBULATORY - NONE [facility] Oct 08, 2023 10:00 AM AMBULATORY - MEDICINE [facility] [place] [facility] Oct 25, 2023 09:30 AM [facility] Oct 30, 2023 03:30 PM [facility] Oct 30, 2023 04:15 PM [facility]UL[facility] - [facility]IC[facility] [place] [facility] Nov 05, 2023 03:00 PM [facility] Lab Results: +/- 30 days of the encounter This section includes the Chemistry and Hematology Lab Results on record with [place] for the patient. Radiology Reports and Pathology Reports are provided separately, in subsequent sections. Lab Results This section contains the Chemistry/Hematology Results that were resulted 30 days before or 30 daysafter the date of the Encounter. Date/Time Source Result Type Result - Unit Interpretation Reference Range Comment Jun 01, 2023 09:22 AM [facility] ANTI-TREPONEMA PALLIDUM IgG Specimen Type: SERUM No comment entered. Ordering Provider: IOANA WHEELER Report Released Date/Time: May 24, 2023 08:52 AM Reporting Lab: [place] [id number] [place] [id number] Performing Lab: [place] [id number] [place] [id number] ANTI-TREPONEMA PALLIDUM IgG NEGATIVE NEGATIVE Jun 01, 2023 09:22 AM [facility] VITAMIN B-12 & FOLATE Specimen Type: SERUM No comment entered. Ordering Provider: IOANA WHEELER Report Released Date/Time: May 24, 2023 08:52 AM Reporting Lab: [facility] [id number] [address] [facility] [id number] Performing Lab: [place] [id number] Tari[address] [place] [id number] FOLATE, SERUM 19.0 ng/mL >= 5.4 VITAMIN B-12 489 pg/mL >= 218 Jun 01, 2023 09:22 AM [facility] HEMOGLOBIN A1C Specimen Type: BLOOD Comment: Values obtained from A1C measurements can vary. For typical A1C assays, a reported value of 7.0 could actually be between 6.72 and 7.28 if measured by a reference method. A reported value of 9.0 could actually be between 8.73 and 9.27. Ref: http://www.ngsp .org/CAPdata.as p Ordering Provider: IOANA WHEELER Report Released Date/Time: May 24, 2023 08:52 AM Reporting Lab: [facility] [address] [facility] [id number] Performing Lab: [facility] [address] [facility] [address] HEMOGLOBIN A1C 5.4 4.4-6.0 Jun 01, 2023 09:22 AM [facility] THYROID STIMULATING HORMONE Specimen Type: PLASMA No comment entered. Ordering Provider: IOANA WHEELER Report Released Date/Time: May 24, 2023 08:52 AM Reporting Lab: [facility] [address] [facility] [address] Performing Lab: [facility] [address] [facility] [id number] THYROID STIMULATING HORMONE 1.658 u[IU]/mL 0.4600-4.70 00 Jun 01, 2023 09:22 AM [facility] HIV ANTIGEN-ANTIBODY PANEL Specimen Type: SERUM Comment: Nonreactive. HIV-1 p24 Ag and HIV-1/HIV-2 Ab not detected. Confirmation HIV 1/2 not indicated Ordering Provider: IOANA WHEELER Report Released Date/Time: May 24, 2023 08:52 AM Reporting Lab: [facility] [address] [facility] [address] Performing Lab: [facility] [address] [facility] [address] HIV-1/2 ANTIGEN-ANTIBOD Y Non Reactive HIV-1 [facility] HIV-2 ANTIBODY CONFIRM [facility] Social History: Smoking Status (Most current) and Tobacco Use (All prior to encounter date) This section includes the most current, and the historical, smoking and tobacco- related health factors from the [place] facility where the Encounter took place. Current Smoking Status This section includes the most current smoking, or tobacco-related health factor, from the [place] facility where the Encounter took place. Date/Time Current Smoking Status Comment [facility] Oct 12, 2022 03:30 PM VA-TOBACCO NEVER USED [facility] [place] [facility] Tobacco Use History This section includes a history of the smoking, or tobacco-related health factors, that were collected on or before the date of the Encounter. The data comes from the [place] facility where the Encounter took place. Date/Time Smoking Status/Tobacco Use Comment F acility Mar 03, 2021 08:49 AM VA-TOBACCO NEVER USED [facility] [place] [facility] Jul 30, 2019 09:13 AM VA-TOBACCO FORMER USER [facility] [place] [facility] Jul 30, 2019 09:13 AM VA-TOBACCO QUIT 15 YRS OR MORE [facility] [place] [facility] Mar 20, 2018 12:10 PM VA-TOBACCO NEVER USED [facility] [place] [facility] Dec 14, 2016 11:39 AM LIFETIME NON-TOBACCO USER [facility] [place] [facility] Dec 14, 2014 10:59 AM [facility] Encounter Notes: All associated encounter notes This section contains the clinical notes associated to the Encounter. Date/Time Encounter Note(s) Provider Source May 09, 2023 12:46 PM PREVENTIVE MEDICIN E NURSING NOTE: LOCAL TITLE: CLINICAL REMINDERS/NURSING STANDARD TITLE: PREVENTIVE MEDICINE NURSING NOTE DATE OF NOTE: MAY 09, 2023@12:46 ENTRY DATE: MAY 09, 2023@12:46:16 AUTHOR: MATT BAILEY EXP COSIGNER: URGENCY: STATUS: COMPLETED Influenza Immunization: The patient declines to receive the recommended dose of seasonal influenza vaccine. Immunization: INFLUENZA, UNSPECIFIED FORMULATION Refusal Reason: PATIENT DECISION Patient refuses all immunization(s) in the FLU group Date Documented: 05/09/23 12:46 /nicolasa/ MATT BAILEY LPN Signed: 05/09/2023 12:47 MATT BAILEY [facility]
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
--- OUTSIDE RECORDS SUMMARY | 2024-01-30 09:23 | XMS_ITS | Encounter Summary ---
Author Name [place] Address [address] [place] [id number] Care Team Providers Care Boat Tester Name Role Phone EN KENNEDY Primary Care Provider [facility] Insurance Providers: All historical and current Section Date Range: From patient's date of to the date document was created. This section includes the names of all active insurance providers for the patient. Insurance Provider Type of Coverage Plan Name Start of Policy Coverage End of Policy Coverage Group Number Member ID Insurance Provider's Telephone Number Policy Alarcon's Name Patient's Relationship to Policy Alarcon [facility] ([facility] MEDICARE SUPPLEMEN [facility] June 12, 2013 PLANF [id number] [phone] JUANI HENDRIX PATIENT [facility] MEDICARE SUPPLEMEN [facility] Apr 12, 2012 MEDICAR E SUPPLEM E [id number] JUANI HENDRIX PATIENT MEDICARE (WNR) MEDICARE (M) PART B Feb 13, 2012 PART B [id number] JUANI HENDRIX PATIENT MEDICARE (WNR) MEDICARE (M) PART B Feb 13, 2012 PART B [id number] JUANI HENDRIX PATIENT MEDICARE (WNR) MEDICARE (M) PART B Feb 13, 2012 PART B [id number] JUANI HENDRIX PATIENT MEDICARE (WNR) MEDICARE (M) PART B Feb 13, 2012 PART B [id number] JUANI HENDRIX PATIENT MEDICARE (WNR) MEDICARE (M) PART A May 14, 2011 PART A [id number] JUANI HENDRIX PATIENT MEDICARE (WNR) MEDICARE (M) PART A May 14, 2011 PART A [id number] JUANI HENDRIX PATIENT MEDICARE (WNR) MEDICARE (M) PART A May 14, 2011 PART A [id number] JUANI HENDRIX PATIENT MEDICARE (WNR) MEDICARE (M) PART A May 14, 2011 PART A [id number] JUANI HENDRIX PATIENT MEDICARE PART D (WNR) PRESCRIPT ION PART D Feb 12, 2021 PART D [id number] JUANI HENDRIX PATIENT Selected Encounter This section includes the information on record at [place] for the Encounter. Date/Time Encounter Type Encounter Description Reason Pro vider Source Aug 03, 2023 05:47 PM Outpatient Encounter ADMIN PAT ACTIVTIES (MASNONCT) IHE Encounter Template Text not used by [place] Plan of Treatment: Future Appointments (+ 6 months) and Future Tests (+/- 45 days) The Plan of Treatment section includes future care activities for the patient from all [place] treatmentfacilities. This section includes future appointments and future orders which are active, pending or scheduled. Future Appointments This section includes appointments that were scheduled to occur 6 months from the date of the Encounter, up to a maximum of 20 appointments. The data comes from all [place] treatment facilities. Appointment Date/Time Appointment Type Appointme nt Facility Name Oct 08, 2023 10:00 AM AMBULATORY - [place]ICINE [place] [facility] [place] [facility] Oct 25, 2023 09:30 AM AMBULATORY - PS[place]IATRY [place] [facility] [place] [facility] Oct 30, 2023 03:30 PM AMBULATORY - MEDICINE [place] [facility] [place] [facility] Oct 30, 2023 04:15 PM AMBULATORY - MEDICINE [place] [facility] [place] [facility] Nov 05, 2023 03:00 PM AMBULATORY - MEDICINE [place] [facility] [place] [facility] Nov 21, 2023 03:30 PM AMBULATORY - MEDICINE [facility] [place] [facility] Dec 27, 2023 11:00 AM AMBULATORY - PS[place]CHIATRY [place] [facility] [place] [facility] Jan 01, 2024 12:30 PM AMBULATORY - MEDICINE [facility] Social History: Smoking Status (Most current) and Tobacco Use (All prior to encounter date) This section includes the most current, and the historical, smoking and tobacco- related health factors from the [place] facility where the Encounter took place. Current Smoking Status This section includes the most current smoking, or tobacco-related health factor, from the [place] facility where the Encounter took place. Date/Time Current Smoking Status Comment Facil ity Oct 12, 2022 03:30 PM VA-TOBACCO [facility] USED [facility] Tobacco Use History This section includes a history of the smoking, or tobacco-related health factors, that were collected on or before the date of the Encounter. The data comes from the [place] facility where the Encounter took place. Date/Time Smoking Status/Tobacco Use Comment F acility Mar 03, 2021 08:49 AM VA-TOBACCO NEVER USED [place] [facility] [place] [facility] Jul 30, 2019 09:13 AM VA-TOBACCO FORMER USER [place] [facility] [place] [facility] Jul 30, 2019 09:13 AM VA-TOBACCO QUIT 15 YRS OR MORE [place] [facility] [place] [facility] Mar 20, 2018 12:10 PM VA-TOBACCO NEVER USED [place] [facility] [place] [facility] Dec 14, 2016 11:39 AM LIFETIME NON-TOBACCO USER [place] [facility] [place] [facility] Dec 14, 2014 10:59 AM LIFETIME NON-TOBACCO USER [place] [facility] [place] [facility] Encounter Notes: All associated encounter notes This section contains the clinical notes associated to the Encounter. Date/Time Encounter Note(s) Provider Source Aug 03, 2023 05:47 PM PHARMACY NOTE: LOCAL TITLE: V1 PHARMACY CUSTOMER CARE MEDICATION RENEWAL STANDARD TITLE: PHARMACY NOTE DATE OF NOTE: AUG 03, 2023@17:47 ENTRY DATE: AUG 03, 2023@17:47:37 AUTHOR: MARS PRUITT COSIGNER: URGENCY: STATUS: COMPLETED V1 PHARMACY CUSTOMER CARE MEDICATION RENEWAL Has ADDENDA Date: Jul Division: [facility] referred by Pharmacy Call Center for medication renewal: Controlled substance Medications requested: [id number] ZOLPIDEM TARTRATE 10MG TAB Defer to primary care provider To be mailed . Please review and renew if appropriate. *This note was generated by [facility]/[place] Pharmacy Customer Care. If you have any questions or need assistance, do not contact this author. Please refer all questions to your local, on-site pharmacy departments. /nicolasa/ MARS PRUITT CPhT [place], [place]/Pharmacy Customer Care Signed: 08/03/2023 17:47 Receipt Acknowledged By: 08/06/2023 07:35 /nicolasa/ En Kennedy DNP, BOILERMAKER LOFTSMAN-BC, CNL Primary Care Nurse Practitioner 08/06/2023 07:29 /nicolasa/ Alice Valladares MSN RN CNL Primary Care RN 08/06/2023 ADDENDUM STATUS: COMPLETED Defer to PCP for requested renewal /nicolasa/ Alice Valladares MSN RN CNL Primary Care RN Signed: 08/06/2023 07:29 [facility]ITT [place] [facility]
--- OUTSIDE RECORDS SUMMARY | 2024-01-30 09:23 | XMS_ITS | Encounter Summary ---
Author Name [facility] [place] [place] Organization [facility] [place] Address [address] [place] [id number] Care Team Providers Care Chief Knowledge Officer Name Role Phone RALPH HESTER Primary Care Provider [facility] Insurance Providers: All historical and current [...] Alarcon's Name Patient's Relationship to Policy Alarcon [facility] ([facility]) MEDICARE SUPPLEMEN JR [facility] June 12, 2013 PLANF [id number] JUANI HENDRIX [facility] MEDICARE SUPPLEMEN JR [facility] Apr 12, 2012 MEDICAR E SUPPLEM E [id number] [phone] JUANI HENDRIX PATIENT MEDICARE (WNR) MEDICARE (M) PART B Feb 13, 2012 PART B [id number] JUANI HENDRIX PATIENT MEDICARE (WNR) MEDICARE (M) PART B Feb 13, 2012 PART B [id number] JUANI HENDRIX PATIENT MEDICARE (WNR) MEDICARE (M) PART B Feb 13, 2012 PART B [id number] JUANI HENDRIX PATIENT MEDICARE (WNR) MEDICARE (M) PART B Feb 13, 2012 PART B [id number] JUANI HENDRIX PATIENT MEDICARE (WNR) MEDICARE (M) PART A May 14, 2011 PART A [id number] JUANI HENDRIX PATIENT MEDICARE (WNR) MEDICARE (M) PART A May 14, 2011 PART A [id number] JUANI HENDRIX PATIENT MEDICARE (WNR) MEDICARE (M) PART A May 14, 2011 PART A [id number] JUANI HENDRIX PATIENT MEDICARE (WNR) MEDICARE (M) PART A May 14, 2011 PART A [id number] JUANI HENDRIX PATIENT MEDICARE PART D (WNR) PRESCRIPT ION PART D Feb 12, 2021 PART D [id number] JUANI HENDRIX PATIENT Selected Encounter This section includes the information on record at [place] for the Encounter. Date/Time Encounter Type Encounter Description Reason Provider Source May 24, 2023 08:00 AM OFFICE O/P NEW MOD 45 MIN NEUROLOGY ICD-10-CM R25.1 Tremor, unspecified IOANA WHEELER Mirella Encounter Template Text not used by [place] Assessments - Encounter Diagnoses This section includes the primary and secondary diagnoses documented for the Encounter. Date/Time Primary/Secondary Diagnosis Diagnosis Name Provider Source Dec 13, 2023 08:30 AM PRIMARY Tremor, unspecified IOANA WHEELER [facility] Plan of Treatment: Future Appointments (+ 6 months) and Future Tests (+/- 45 days) The Plan of Treatment section includes future care activities for the patient from all [place] treatmentfacilities. This section includes future appointments and future orders which are active, pending or scheduled. Future Appointments This section includes appointments that were scheduled to occur 6 months from the date of the Encounter, up to a maximum of 20 appointments. The data comes from all [place] treatment facilities. Appointment Date/Time Appointment Type Appointme nt Facility Name Jun 01, 2023 09:30 AM AMBULATORY - NONE [facility]) June 29, 2023 12:15 PM AMBULATORY - NONE [facility] Oct 08, 2023 10:00 AM AMBULATORY - MEDICINE [facility] Oct 25, 2023 09:30 AM [facility] Oct 30, 2023 03:30 PM [facility] Oct 30, 2023 04:15 PM [facility]ORY [facility] Nov 05, 2023 03:00 PM [facility] Nov 21, 2023 03:30 PM AMBULATORY - [place]ICINE [place] [facility] [place] [facility] Lab Results: +/- 30 days of the encounter This section includes the Chemistry and Hematology Lab Results on record with [place] for the patient. Radiology Reports and Pathology Reports are provided separately, in subsequent sections. Lab Results This section contains the Chemistry/Hematology Results that were resulted 30 days before or 30 daysafter the date of the Encounter. Date/Time Source Result Type Result - Unit Interpretation Reference Range Comment Jun 01, 2023 09:22 AM [facility] ANTI-TREPONEMA PALLIDUM IgG Specimen Type: SERUM No comment entered. Ordering Provider: IOANA WHEELER Report Released Date/Time: May 24, 2023 08:52 AM Reporting Lab: [facility] [address] [place] [phone] Performing Lab: [facility] [address] [place] [id number] ANTI-TREPONEMA PALLIDUM IgG NEGATIVE NEGATIVE Jun 01, 2023 09:22 AM [facility] VITAMIN B-12 & FOLATE Specimen Type: SERUM No comment entered. Ordering Provider: IOANA WHEELER Report Released Date/Time: May 24, 2023 08:52 AM Reporting Lab: [facility] [address] [facility] [phone] Performing Lab: [facility] [address] [place] [phone] FOLATE, SERUM 19.0 ng/mL >= 5.4 VITAMIN B-12 489 pg/mL >= 218 Jun 01, 2023 09:22 AM [facility] HEMOGLOBIN A1C Specimen Type: BLOOD Comment: Values [...] May 24, 2023 08:52 AM Reporting Lab: [facility] [address] [facility] [phone] Performing Lab: [facility] [address] [facility] [address] HEMOGLOBIN A1C 5.4 4.4-6.0 Jun 01, 2023 09:22 AM [facility] THYROID STIMULATING HORMONE Specimen Type: PLASMA No comment entered. Ordering Provider: IOANA WHEELER Report Released Date/Time: May 24, 2023 08:52 AM Reporting Lab: [facility] [address] [facility] [address] Performing Lab: [facility] [address] [facility] [phone] THYROID STIMULATING HORMONE 1.658 u[IU]/mL 0.4600-4.70 00 Jun 01, 2023 09:22 AM [facility] HIV ANTIGEN-ANTIBODY PANEL Specimen Type: SERUM Comment: Nonreactive. HIV-1 p24 Ag and HIV-1/HIV-2 Ab not detected. Confirmation HIV 1/2 not indicated Ordering Provider: IOANA WHEELER Report Released Date/Time: May 24, 2023 08:52 AM Reporting Lab: [facility] [address] [facility] [phone] Performing Lab: [facility] [address] [facility] [phone] HIV-1/2 ANTIGEN-ANTIBOD Y Non Reactive HIV-1 CONFIRMATION canc HIV-2 ANTIBODY CONFIRM can Encounter Notes: All associated encounter notes This section contains the clinical notes associated to the Encounter. Date/Time Encounter Note(s) Provider Source May 24, 2023 08:20 AM NEUROLOGY CONSULT: LOCAL TITLE: NEUROLOGY CONSULT NOTE STANDARD TITLE: NEUROLOGY CONSULT DATE OF NOTE: MAY 24, 2023@08:20 ENTRY DATE: MAY 24, 2023@08:20:33 AUTHOR: IOANA WHEELER EXP COSIGNER: URGENCY: STATUS: COMPLETED VVC-Note Chief Complaint: tremors, memory loss HPI: Patient here as a travelling vet who has had about a year of a tremor in the bilateral hands. No clear triggers or significant medication changes a year ago. Notably has been on sertraline for a couple of years and noticed significant tremor when on higher doses. No slowness, stiffness, changes in gait, or other parkinsonisms. No new weakness/numbness Some short term memory loss over the past few years worsening. Loses attention, forgets where he puts tools. Performs all ADLs. No new neuro signs/symptoms reported otherwise PE AAOx3, no masked facies, no bradykinesia +tremor bilateral hands, fast frequency low amplitude, worse with intention. ? myoclonus uperimposed. Assessment 1. Tremor - limited evaluation due to VVC but has the appearance. Not parkinsonian. Questionable myoclonus superimposed. Possibly essential tremor. SSRI on board a possible contributor. 2. Memory loss - short term memory most involved by history Plan 1. MRI brain 2. B12/Folate, TSH, A1C, RPR, HIV (verbal permission given) 3. Primidone 50 mg Qdaily. Discussed beta blockers but pulse in the 40's 50's by their report. ?myoclonus so will hold off on gabapentin. May consider sertraline reduction in the future, but he would like to stay on this for now. Medication risks and benefits as well as common side effects discussed with patient. f/u PRN If new neurological signs or symptoms arise or if current symptoms worsen, the patient is instructed to seek medical attention and to call me to let me know. Time spent on phone/video with patient/critical care paramedic: 25 minutes /nicolasa/ IOANA WHEELER MD NEUROLOGY & PAIN MANAGEMENT ATTENDING Signed: 05/24/2023 08:52 IOANA WHEELER [facility]
--- OUTSIDE RECORDS SUMMARY | 2024-01-30 09:23 | XMS_ITS | Encounter Summary ---
Author Name [facility] [place] Organization [place] Address [address] [place] [address] Care Team Providers Care Web Interface Developer Name Role Phone EN KENNEDY Primary Care Provider [facility] Insurance Providers: All historical and [...] Alarcon's Name Patient's Relationship to Policy Alarcon [facility] ([facility]) MEDICARE SUPPLEMEN [facility] June 12, 2013 PLANF [id number] [phone] JUANI HENDRIX PATIENT [facility] MEDICARE SUPPLEMEN [facility] Apr 12, 2012 MEDICAR E SUPPLEM E [id number] JUANI HENDRIX PATIENT MEDICARE (WNR) MEDICARE (M) PART B Feb 13, 2012 PART B [id number] JUANI HENDRIX PATIENT MEDICARE (WNR) MEDICARE (M) PART B Feb 13, 2012 PART B [id number] JUANI HENDRIX PATIENT MEDICARE (WNR) MEDICARE (M) PART B Feb 13, 2012 PART B [id number] JUANI HENDRIX PATIENT MEDICARE (WNR) MEDICARE (M) PART B Feb 13, 2012 PART B [id number] JUANI HENDRIX PATIENT MEDICARE (WNR) MEDICARE (M) PART A May 14, 2011 PART A [id number] JUANI HENDRIX PATIENT MEDICARE (WNR) MEDICARE (M) PART A May 14, 2011 PART A [id number] JUANI HENDRIX PATIENT MEDICARE (WNR) MEDICARE (M) PART A May 14, 2011 PART A [id number] JUANI HENDRIX PATIENT MEDICARE (WNR) MEDICARE (M) PART A May 14, 2011 PART A [id number] JUANI HENDRIX PATIENT MEDICARE PART D (WNR) PRESCRIPT ION PART D Feb 12, 2021 PART D [id number] JUANI HENDRIX PATIENT Selected Encounter This section includes the information on record at OR for the Encounter. Date/Time Encounter Type Encounter Description Reason Pro vider Source May 23, 2023 09:07 AM Outpatient Encounter ADMIN PAT ACTIVTIES (MASNONCT) IHE Encounter Template Text not used by OR Plan of Treatment: Future Appointments (+ 6 months) and Future Tests (+/- 45 days) The Plan of Treatment section includes future care activities for the patient from all [place] treatmentfacilities. This section includes future appointments and future orders which are active, pending or scheduled. Future Appointments This section includes appointments that were scheduled to occur 6 months from the date of the Encounter, up to a maximum of 20 appointments. The data comes from all [place] treatment facilities. Appointment Date/Time Appointment Type Appointme nt Facility Name May 24, 2023 08:00 AM AMBULATORY - NEUROLOGY [facility] Jun 01, 2023 09:30 AM AMBULATORY - NONE [facility] June 29, 2023 12:15 PM AMBULATORY - NONE [facility] Oct 08, 2023 10:00 AM AMBULATORY - MEDICINE [place] [facility] [place] [facility] Oct 25, 2023 09:30 AM AMBULATORY - PSYCHIATRY [place] [facility] [place] [facility] Oct 30, 2023 03:30 PM AMBULATORY - MEDICINE [place] [facility] [place] [facility] Oct 30, 2023 04:15 PM AMBULATORY - MEDICINE [place] [facility] [place] [facility] Nov 05, 2023 03:00 PM AMBULATORY - MEDICINE [place] [facility] [place] [facility] Nov 21, 2023 03:30 PM [facility] Lab Results: +/- 30 days of the encounter This section includes the Chemistry and Hematology Lab Results on record with OR for the patient. Radiology Reports and Pathology Reports are provided separately, in subsequent sections. Lab Results This section contains the Chemistry/Hematology Results that were resulted 30 days before or 30 daysafter the date of the Encounter. Date/Time Source Result Type Result - Unit Interpretation Reference Range Comment Jun 01, 2023 09:22 AM [facility] ANTI-TREPONEMA PALLIDUM IgG Specimen Type: SERUM No comment entered. Ordering Provider: OIANA WHEELER Report Released Date/Time: May 24, 2023 08:52 AM Reporting Lab: [place] [address]SE CARVER [place] [id number] Performing Lab: [place] [address]SE [address] [place] [id number] ANTI-TREPONEMA PALLIDUM IgG NEGATIVE NEGATIVE Jun 01, 2023 09:22 AM [facility] VITAMIN B-12 & FOLATE Specimen Type: SERUM No comment entered. Ordering Provider: IOANA WHEELER Report Released Date/Time: May 24, 2023 08:52 AM Reporting Lab: [place] [address] JOSE CARVER [facility] [phone] Performing Lab: [place] [address] JOSE CARVER [place] [id number] FOLATE, SERUM 19.0 ng/mL >= 5.4 VITAMIN B-12 489 pg/mL >= 218 Jun 01, 2023 09:22 AM [facility] HEMOGLOBIN A1C Specimen Type: BLOOD Comment: Values obtained from A1C measurements can vary. For typical A1C assays, a reported value of 7.0 could actually be between 6.72 and 7.28 if measured by a reference method. A reported value of 9.0 could actually be between 8.73 and 9.27. Ref: http://www.ngsp .org/CAPdata.as p Ordering Provider: WHEELER,IOANA A Report Released Date/Time: May 24, 2023 08:52 AM Reporting Lab: [facility] [address] [facility] [phone] Performing Lab: [facility] [address] [facility] [phone] HEMOGLOBIN A1C 5.4 4.4-6.0 Jun 01, 2023 09:22 AM [facility] THYROID STIMULATING HORMONE Specimen Type: PLASMA No comment entered. Ordering Provider: IOANA WHEELER Report Released Date/Time: May 24, 2023 08:52 AM Reporting Lab: [facility] [address] [facility] [phone] Performing Lab: [facility] [address] [facility] [phone] THYROID STIMULATING HORMONE 1.658 u[IU]/mL 0.4600-4.70 00 Jun 01, 2023 09:22 AM [facility] HIV ANTIGEN-ANTIBODY PANEL Specimen Type: SERUM Comment: Nonreactive. HIV-1 p24 Ag and HIV-1/HIV-2 Ab not detected. Confirmation HIV 1/2 not indicated Ordering Provider: IOANA WHEELER Report Released Date/Time: May 24, 2023 08:52 AM Reporting Lab: [facility] [address] [facility] [phone] Performing Lab: [facility] [address] [facility] [phone] HIV-1/2 ANTIGEN-ANTIBOD Y Non Reactive HIV-1 CONFIRMATION [facility] HIV-2 ANTIBODY CONFIRM [facility] Social History: Smoking Status (Most current) and Tobacco Use (All prior to encounter date) This section includes the most current, and the historical, smoking and tobacco- related health factors from the [place] facility where the Encounter took place. Current Smoking Status This section includes the most current smoking, or tobacco-related health factor, from the [place] facility where the Encounter took place. Date/Time Current Smoking Status Comment [facility] Oct 12, 2022 03:30 PM VA-TOBACCO NEVER USED [facility] [place] [facility] Tobacco Use History This section includes a history of the smoking, or tobacco-related health factors, that were collected on or before the date of the Encounter. The data comes from the [place] facility where the Encounter took place. Date/Time Smoking Status/Tobacco Use Comment F acility Mar 03, 2021 08:49 AM VA-TOBACCO NEVER USED [facility] [place] [facility] Jul 30, 2019 09:13 AM VA-TOBACCO FORMER USER [facility] [place] [facility] Jul 30, 2019 09:13 AM VA-TOBACCO QUIT 15 YRS OR MORE [facility] [place] [facility] Mar 20, 2018 12:10 PM VA-TOBACCO NEVER USED [facility] [place] [facility] Dec 14, 2016 11:39 AM LIFETIME NON-TOBACCO USER [facility] [place] [facility] Dec 14, 2014 10:59 AM LIFETIME NON-TOBACCO USER [facility] [place] [facility] Encounter Notes: All associated encounter notes This section contains the clinical notes associated to the Encounter. Date/Time Encounter Note(s) Provider Source May 23, 2023 09:37 AM ADDENDUM: LOCAL TITLE: Addendum STANDARD TITLE: ADDENDUM DATE OF NOTE: MAY 23, 2023@09:37:31 ENTRY DATE: MAY 23, 2023@09:37:33 AUTHOR: EN KENNEDY COSIGNER: URGENCY: STATUS: COMPLETED i can change it to 18pills/90 days with 3 refills. This is the restricted limit. /nicolasa/ En Kennedy DNP, MILLWRIGHT APPRENTICE-BC, HILTONL Primary Care Nurse Practitioner Signed: 05/23/2023 09:38 Receipt Acknowledged By: 05/23/2023 09:44 /es/ Alice MONTELONGO RN CNL Primary Care RN === --- Original Document --- 05/23/23 CCC: SCHEDULING ADMINISTRATION: Patient Demographics Patient Name: JUANI HENDRIX Patient Primary Phone: [phone] Patient Primary Address: [address] [place] [address] Patient : 1945 Patient Age: 77 Call Back Number: Caller/Recipient Relation to Patient: Self Administrative Administrative Note Reason: Medication Renewal VA Medications Refill/Renewal Request: Pt was transferred by pharmacy customer care. Pt is looking for a higher quantity of both medications below. The TADALAFIL IS D/C'D Pt states that he uses both this medications ''not at the same time.'' Pt states he will use one med one month and the other med the next month. [id number] - SILDENAFIL CITRATE 100MG TAB - Medication - 1 TABLET - TAKE ONE TABLET BY MOUTH ONCE DAILY NEEDED FOR ERECTILE DYSFUNCTION TAKE 1 HOUR PRIOR TO SEXUAL ACTIVITY - 7 - [place] [id number] - ACTIVE [id number] - TADALAFIL 10MG TAB - Medication - 1 TABLET - TAKE ONE TABLET BY MOUTH ONCE DAILY NEEDED FOR INABILITY TO HAVE AN ERECTION - 10 - [place] [address] - DISCONTINUED /nicolasa/ BRAN SILVEIRA 1 [facility] AMSA Signed: 05/23/2023 09:07 Receipt Acknowledged By: 05/23/2023 09:12 /nicolasa/ ALEIXS Hoyos DNP, HILTONL Primary Care Nurse Practitioner 05/23/2023 09:26 /nicolasa/ Alice MONTELONGO RN CNL Primary Care RN 05/23/2023 ADDENDUM STATUS: COMPLETED Please let [place], Tadalafil can not be ordered since he is tolerating sildenafil. thank you /nicolasa/ ALEXIS Hoyos DNP, URSZULA Primary Care Nurse Practitioner Signed: 05/23/2023 09:15 Receipt Acknowledged By: 05/23/2023 09:25 /nicolasa/ Alice MONTELONGO RN CNL Primary Care RN 05/23/2023 ADDENDUM STATUS: COMPLETED Talked with Vet, he expressed understanding and will use only Sildenafil. Vet requesting more then 6 pills per month. Advised there may be restriction on monthly amount but RN would advise PCP of preference. /nicolasa/ Alice MONTELONGO RN CNL Primary Care RN Signed: 05/23/2023 09:26 Receipt Acknowledged By: 05/23/2023 09:37 /nicolasa/ ALEXIS Hoyos DNP, HILTONL Primary Care Nurse Practitioner 05/23/2023 ADDENDUM STATUS: UNSIGNED You may not VIEW this UNSIGNED Addendum. EN KENNEDY [facility] May 23, 2023 09:25 AM ADDENDUM: LOCAL TITLE: Addendum STANDARD TITLE: ADDENDUM DATE OF NOTE: MAY 23, 2023@09:25:19 ENTRY DATE: MAY 23, 2023@09:25:20 AUTHOR: ALICE WALTON COSIGNER: URGENCY: STATUS: COMPLETED Talked with Vet, he expressed understanding and will use only Sildenafil. Vet requesting more then 6 pills per month. Advised there may be restriction on monthly amount but RN would advise PCP of preference. /es/ Alice Walton MSN RN CNL Primary Care RN Signed: 05/23/2023 09:26 Receipt Acknowledged By: 05/23/2023 09:37 /es/ En Kennedy DNP, MILLWRIGHT APPRENTICE-BC, CNL Primary Care Nurse Practitioner === --- Original Document --- 05/23/23 CCC: SCHEDULING ADMINISTRATION: Patient Demographics Patient Name: JUANI HENDRIX Patient Primary Phone: [phone] Patient Primary Address: [address] [place] [address] Patient : 1945 Patient Age: 77 Call Back Number: Caller/Recipient Relation to Patient: Self Administrative Administrative Note Reason: Medication Renewal [place] Medications Refill/Renewal Request: Pt was transferred by pharmacy customer care. Pt is looking for a higher quantity of both medications below. The TADALAFIL IS D/C'D Pt states that he uses both this medications ''not at the same time.'' Pt states he will use one med one month and the other med the next month. [id number] - SILDENAFIL CITRATE 100MG TAB - Medication - 1 TABLET - TAKE ONE TABLET BY MOUTH ONCE DAILY NEEDED FOR ERECTILE DYSFUNCTION TAKE 1 HOUR PRIOR TO SEXUAL ACTIVITY - 7 - [facility] - ACTIVE [id number] - TADALAFIL 10MG TAB - Medication - 1 TABLET - TAKE ONE TABLET BY MOUTH ONCE DAILY NEEDED FOR INABILITY TO HAVE AN ERECTION - 10 - [facility] - 631 - DISCONTINUED /es/ BRAN DE LA CRUZ VISN 1 CCC AMSA Signed: 05/23/2023 09:07 Receipt Acknowledged By: 05/23/2023 09:12 /nicolasa/ ALEXIS Hoyos DNP, URSZULA Primary Care Nurse Practitioner 05/23/2023 09:26 /es/ Alice Walton MSN RN CNL Primary Care RN 05/23/2023 ADDENDUM STATUS: COMPLETED Please let [place], Tadalafil can not be ordered since he is tolerating sildenafil. thank you /nicolasa/ ALEXIS Hoyos DNP, URSZULA Primary Care Nurse Practitioner Signed: 05/23/2023 09:15 Receipt Acknowledged By: 05/23/2023 09:25 /nicolasa/ Alice MONTELONGO RN [facility] Primary Care RN ALICE WALTON [facility] May 23, 2023 09:12 AM ADDENDUM: LOCAL TITLE: Addendum STANDARD TITLE: ADDENDUM DATE OF NOTE: MAY 23, 2023@09:12:30 ENTRY DATE: MAY 23, 2023@09:12:31 AUTHOR: EN KENNEDY EXP COSIGNER: URGENCY: STATUS: COMPLETED Please let , Tadalafil can not be ordered since he is tolerating sildenafil. thank you /nicolasa/ ALEXIS Hoyos DNP, URSZULA Primary Care Nurse Practitioner Signed: 05/23/2023 09:15 Receipt Acknowledged By: 05/23/2023 09:25 /nicolasa/ Alice Walton MSN RN CNL Primary Care RN === --- Original Document --- 05/23/23 CCC: SCHEDULING ADMINISTRATION: Patient Demographics Patient Name: JUANI HENDRIX Patient Primary Phone: [phone] Patient Primary Address: [address] [place] [address] Patient : 1945 Patient Age: 77 Call Back Number: Caller/Recipient Relation to Patient: Self Administrative Administrative Note Reason: Medication Renewal VA Medications Refill/Renewal Request: Pt was transferred by pharmacy customer care. Pt is looking for a higher quantity of both medications below. The TADALAFIL IS D/C'D Pt states that he uses both this medications ''not at the same time.'' Pt states he will use one med one month and the other med the next month. [id number] - SILDENAFIL CITRATE 100MG TAB - Medication - 1 TABLET - TAKE ONE TABLET BY MOUTH ONCE DAILY NEEDED FOR ERECTILE DYSFUNCTION TAKE 1 HOUR PRIOR TO SEXUAL ACTIVITY - 7 - [place] [address] - ACTIVE [id number] - TADALAFIL 10MG TAB - Medication - 1 TABLET - TAKE ONE TABLET BY MOUTH ONCE DAILY NEEDED FOR INABILITY TO HAVE AN ERECTION - 10 - [facility] 631 - DISCONTINUED /es/ BRAN DE LA CRUZ VISN 1 [facility] AMSA Signed: 05/23/2023 09:07 Receipt Acknowledged By: 05/23/2023 09:12 /es/ En Kennedy DNP, MILLWRIGHT APPRENTICE-BC, CNL Primary Care Nurse Practitioner * AWAITING SIGNATURE * ALICE WALTON 05/23/2023 ADDENDUM STATUS: UNSIGNED You may not VIEW this UNSIGNED Addendum. EN KENNEDY [facility] May 23, 2023 09:07 AM ADMINISTRATIVE NOTE: LOCAL TITLE: CCC: SCHEDULING ADMINISTRATION STANDARD TITLE: ADMINISTRATIVE NOTE DATE OF NOTE: MAY 23, 2023@09:07:43 ENTRY DATE: MAY 23, 2023@09:07:43 AUTHOR: BRAN DE LA CRUZ EXP COSIGNER: URGENCY: STATUS: COMPLETED CCC: SCHEDULING ADMINISTRATION Has ADDENDA Patient Demographics Patient Name: JUANI HENDRIX Patient Primary Phone: [phone] Patient Primary Address: [address] [place], [place] [address] Patient : 1945 Patient Age: 77 Call Back Number: Caller/Recipient Relation to Patient: Self Administrative Administrative Note Reason: Medication Renewal VA Medications Refill/Renewal Request: Pt was transferred by pharmacy customer care. Pt is looking for a higher quantity of both medications below. The TADALAFIL IS D/C'D Pt states that he uses both this medications ''not at the same time.'' Pt states he will use one med one month and the other med the next month. [id number] - SILDENAFIL CITRATE 100MG TAB - Medication - 1 TABLET - TAKE ONE TABLET BY MOUTH ONCE DAILY NEEDED FOR ERECTILE DYSFUNCTION TAKE 1 HOUR PRIOR TO SEXUAL ACTIVITY - 7 - [place] [address] - ACTIVE [id number] - TADALAFIL 10MG TAB - Medication - 1 TABLET - TAKE ONE TABLET BY MOUTH ONCE DAILY NEEDED FOR INABILITY TO HAVE AN ERECTION - 10 - [place] [address] - DISCONTINUED /es/ BRAN DOS SANTOSN 1 [facility] A[facility] Signed: 05/23/2023 09:07 Receipt Acknowledged By: 05/23/2023 09:12 /nicolasa/ ALEXIS Hoyos DNP, URSZULA Primary Care Nurse Practitioner 05/23/2023 09:26 /nicolasa/ Alice MONTELONGO RN CNL Primary Care RN 05/23/2023 ADDENDUM STATUS: COMPLETED Please let , Tadalafil can not be ordered since he is tolerating sildenafil. thank you /nicolasa/ ALEXIS Hoyos DNP, HILTONL Primary Care Nurse Practitioner Signed: 05/23/2023 09:15 Receipt Acknowledged By: 05/23/2023 09:25 /nicolasa/ Alice MONTELONGO RN CNL Primary Care RN 05/23/2023 ADDENDUM STATUS: COMPLETED Talked with Vet, he expressed understanding and will use only Sildenafil. Vet requesting more then 6 pills per month. Advised there may be restriction on monthly amount but RN would advise PCP of preference. /nicolasa/ Alice MONTELONGO RN CNL Primary Care RN Signed: 05/23/2023 09:26 Receipt Acknowledged By: 05/23/2023 09:37 /nicolasa/ ALEXIS Hoyos DNP, URSZULA Primary Care Nurse Practitioner 05/23/2023 ADDENDUM STATUS: COMPLETED i can change it to 18pills/90 days with 3 refills. This is the restricted limit. /nicolasa/ ALEXIS Hoyos DNP, URSZULA Primary Care Nurse Practitioner Signed: 05/23/2023 09:38 Receipt Acknowledged By: 05/23/2023 09:44 /nicolasa/ Alice MONTELONGO RN HILTONL Primary Care RN 05/23/2023 ADDENDUM STATUS: COMPLETED Vet advised, he will stick to his current prescription /nicolasa/ Alice MONTELONGO RN CNL Primary Care RN Signed: 05/23/2023 09:44 [facility]
--- OUTSIDE RECORDS SUMMARY | 2024-01-30 09:23 | XMS_ITS | Encounter Summary ---
Author Name [place] Address [address] [place] [id number] Care Team Providers Care Tallow Refiner Name Role Phone RALPH HESTER Primary Care [...] Alarcon's Name Patient's Relationship to Policy Alarcon [facility] ([facility] MEDICARE SUPPLEMEN [facility] June 12, 2013 PLANF [id number] JUANI HENDRIX PATIENT [facility] MEDICARE SUPPLEMEN [facility] Apr 12, 2012 MEDICAR E SUPPLEM E [id number] JUANI HENDRIX PATIENT MEDICARE (WNR) MEDICARE (M) PART B Feb 13, 2012 PART B [id number] JUANI HENDRIX PATIENT MEDICARE (WNR) MEDICARE (M) PART B Feb 13, 2012 PART B [id number] JUANI HENDRIX PATIENT MEDICARE (WNR) MEDICARE (M) PART B Feb 13, 2012 PART B [id number] [id number] JUANI HENDRIX PATIENT MEDICARE (WNR) MEDICARE (M) PART B Feb 13, 2012 PART B [id number] JUANI HENDRIX PATIENT MEDICARE (WNR) MEDICARE (M) PART A May 14, 2011 PART A [id number] [id number] JUANI HENDRIX PATIENT MEDICARE (WNR) MEDICARE (M) PART A May 14, 2011 PART A [id number] JAUNI HENDRIX PATIENT MEDICARE (WNR) MEDICARE (M) PART A May 14, 2011 PART A [id number] JUANI HENDRIX PATIENT MEDICARE (WNR) MEDICARE (M) PART A May 14, 2011 PART A [id number] JUANI HENDRIX PATIENT MEDICARE PART D (WNR) PRESCRIPT ION PART D Feb 12, 2021 PART D [id number] JUANI HENDRIX PATIENT Selected Encounter This section includes the information on record at [place] for the Encounter. Date/Time Encounter Type Encounter Description Reason Pro vider Source Apr 11, 2023 01:30 PM Outpatient Encounter NEUROLOGY IHE Encounter Template Text not used by [place] Plan of Treatment: Future Appointments (+ 6 months) and Future Tests (+/- 45 days) The Plan of Treatment section includes future care activities for the patient from all [place] treatmentfacilities. This section includes future appointments and future orders which are active, pending or scheduled. Future Appointments This section includes appointments that were scheduled to occur 6 months from the date of the Encounter, up to a maximum of 20 appointments. The data comes from all [place] treatment facilities. Appointment Date/Time Appointment Type Appointme nt Facility Name May 08, 2023 10:30 AM AMBULATORY - [place]IATRY [place] [facility] [place] [facility] May 17, 2023 10:00 AM AMBULATORY - PS[place]CHIATRY [place] [facility] [place] [facility] May 24, 2023 08:00 AM AMBULATORY - NEUROLOGY [facility] Jun 01, 2023 09:30 AM AMBULATORY - NONE [facility] June 29, 2023 12:15 PM AMBULATORY - NONE [facility] Oct 08, 2023 10:00 AM AM[facility]ULATORY - [facility]ICINE [place] [facility] Vital Signs: All taken on the encounter date This section contains inpatient and outpatient Vital Signs collected on the date of the Encounter. Date/Time Temperature Pulse Blood Pressure Respiratory Rate SP02 Pain Height Weight Body Mass Index Source Apr 11, 2023 01:55 PM 97.8 68 121/74 18 98 3 [facility] Encounter Notes: All associated encounter notes This section contains the clinical notes associated to the Encounter. Date/Time Encounter Note(s) Provider Source Apr 11, 2023 01:57 PM NURSING OUTPATIENT NOTE: LOCAL TITLE: NURSING NOTE - SPECIALTY CLINICS STANDARD TITLE: NURSING OUTPATIENT NOTE DATE OF NOTE: APR 11, 2023@13:57 ENTRY DATE: APR 11, 2023@13:57:47 AUTHOR: NATALIA THAKKAR COSIGNER: URGENCY: STATUS: COMPLETED Vital Signs: T: 97.8 F [36.6 C] (04/11/2023 13:55) P: 68 (04/11/2023 13:55) B/P: 121/74 (04/11/2023 13:55) WGT: PAIN: 3 (04/11/2023 13:55) PULSE OX: 98 Allergies: No Allergy Assessment Homeless: No Abuse Screen: Is anyone in your home being hurt, hit, threatened, frightened or neglected? No There are no signs or symptoms of abuse. Needs social media campaign manager? No Cognitive Screen: Mental Status: Alert, oriented X3 Reason for the Visit: F/U - Post Op/Procedure: Changes since last visit/Response to treatment: No Change since last visit Pain: 3 (04/11/2023 13:55) (on 0-10 scale) Is pain related to this visit? Yes Is other provider ([place] or non[place]) treating pain? Yes Pain Plan of Care Plan: Discuss with provider. Comments: Pt c/o 04/21 headache. Pain Education Patient educated on pain. Level of Understanding: Good Pain Topic: Patient rights re: pain, Pain Treatment Options Suicide Screen: C-SSRS Screening [place]-Suicide Severity Rating Scale (C-SSRS Screener) 1. Over the past month, have you wished you were or wished you could go to sleep and not wake up? No 2. Over the past month, have you had any actual thoughts of killing yourself? No 3. Over the past month, have you been thinking about how you might do this? Response not required due to responses to other questions. 4. Over the past month, have you had these thoughts and had some intention of acting on them? Response not required due to responses to other questions. 5. Over the past month, have you started to work out or worked out the details of how to kill yourself? Response not required due to responses to other questions. 6. If yes, at any time in the past month did you intend to carry out this plan? Response not required due to responses to other questions. 7. In your lifetime, have you ever done anything, started to do anything, or prepared to do anything to end your life (for example, collected pills, obtained a gun, gave away valuables, went to the roof but didn't jump)? No 8. If YES, was this within the past 3 months? Response not required due to responses to other questions. /nicolasa/ NATALIA THAKKAR JR, LPN Signed: 04/11/2023 13:59 NATALIA THAKKAR JR [facility]
--- OUTSIDE RECORDS SUMMARY | 2024-01-30 09:23 | XMS_ITS | Encounter Summary ---
Author Name [facility] [place] Organization [place] Address [address] [place] [address] Care Team Providers Care Maintenance And Engineering Manager Name Role Phone RALPH HESTER Primary [facility] Provider [facility] Insurance Providers: All historical and current Section Date Range: From patient's date of to the date document was created. This section includes the names of all active insurance providers for the patient. Insurance Provider Type of Coverage Plan Name Start of Policy Coverage End of Policy Coverage Group Number Member ID Insurance Provider's Telephone Number Policy Alarcon's Name Patient's Relationship to Policy Alarcon [facility] MEDICARE SUPPLEMEN [facility] June 12, 2013 PLANF [id number] [phone] JUANI HENDRIX PATIENT [facility] MEDICARE SUPPLEMEN JR [facility] Apr 12, 2012 MEDICAR E SUPPLEM E [id number] JUANI HENDRIX PATIENT MEDICARE (WNR) MEDICARE (M) PART B Feb 13, 2012 PART B [id number] JUANI HENDRIX PATIENT MEDICARE (WNR) MEDICARE (M) PART B Feb 13, 2012 PART B [id number] JUANI HENDRIX PATIENT MEDICARE (WNR) MEDICARE (M) PART B Feb 13, 2012 PART B [id number] JUANI HENDRIX PATIENT MEDICARE (WNR) MEDICARE (M) PART B Feb 13, 2012 PART B [id number] JUANI HENDRIX PATIENT MEDICARE (WNR) MEDICARE (M) PART A May 14, 2011 PART A [id number] JUANI HENDRIX PATIENT MEDICARE (WNR) MEDICARE (M) PART A May 14, 2011 PART A [id number] JUANI HENDRIX PATIENT MEDICARE (WNR) MEDICARE (M) PART A May 14, 2011 PART A [id number] JUANI HENDRIX PATIENT MEDICARE (WNR) MEDICARE (M) PART A May 14, 2011 PART A [id number] JUANI HENDRIX PATIENT MEDICARE PART D (WNR) PRESCRIPT ION PART D Feb 12, 2021 PART D [id number] JUANI HENDRIX PATIENT Selected Encounter This section includes the information on record at [place] for the Encounter. Date/Time Encounter Type Encounter Description Reason Pro vider Source Apr 10, 2023 11:05 AM Outpatient Encounter ADMIN PAT ACTIVTIES (MASNONCT) IHE Encounter Template Text not used by MA Plan of Treatment: Future Appointments (+ 6 months) and Future Tests (+/- 45 days) The Plan of Treatment section includes future care activities for the patient from all [place] treatmentfacilities. This section includes future appointments and future orders which are active, pending or scheduled. Future Appointments This section includes appointments that were scheduled to occur 6 months from the date of the Encounter, up to a maximum of 20 appointments. The data comes from all [place] treatment facilities. Appointment Date/Time Appointment Type Appointme nt Facility Name May 08, 2023 10:30 AM AMBULATORY - PSYCHIATRY [facility] May 17, 2023 10:00 AM AMBULATORY - PSYCHIATRY [facility] May 24, 2023 08:00 AM AMBULATORY - NEUROLOGY [facility] Jun 01, 2023 09:30 AM AMBULATORY - NONE [facility] June 29, 2023 12:15 PM AMBULATORY - NONE [facility] Oct 08, 2023 10:00 AM AMBULATORY - MEDICINE [facility] Encounter Notes: All associated encounter notes This section contains the clinical notes associated to the Encounter. Date/Time Encounter Note(s) Provider Source Apr 10, 2023 11:05 AM ADMINISTRATIVE NOT E: LOCAL TITLE: [facility] STANDARD TITLE: ADMINISTRATIVE NOTE DATE OF NOTE: APR 10, 2023@11:05 ENTRY DATE: APR 10, 2023@11:05:42 AUTHOR: KATERINA BLACK EXP COSIGNER: URGENCY: STATUS: COMPLETED [facility] Has ADDENDA Type of Visit: PHONE CALL NAME:JUANI HENDRIX III AGE:77 SEX:MALE PHONE:PATIENT PHONE - CALLER: Patient PRIMARY CARE PROVIDER: SERVICE: Reason for call: Patient is requesting to speak with neurology regarding upcoming appt, pt stated he has some questions & concerns he would like to discuss before attending. 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 He did not show for his appointment either. /nicolasa/ HOLLY DAMICO MD RESIDENT PHYSICIAN, NEUROLOGY SERVICE Signed: 04/11/2023 13:50 KATERINA BLACK [facility]
--- OUTSIDE RECORDS SUMMARY | 2024-01-30 09:23 | XMS_ITS | Encounter Summary ---
Author Name [facility] [place] Organization [place] Address [address] [place] [id number] Care Team Providers Care Water Purification Chemist Name Role Phone RALPH KENNEDY Primary Care Provider [facility] Insurance [...] Alarcon's Name Patient's Relationship to Policy Alarcon [facility] MEDICARE SUPPLEMEN [facility] June 12, 2013 PLANF [id number] JUANI HENDRIX PATIENT [facility], 2012 MEDICAR E SUPPLEM E [id number] [phone] JUANI HENDRIX PATIENT MEDICARE (WNR) MEDICARE (M) PART B Feb 13, 2012 PART B [id number] JUANI HENDRIX PATIENT MEDICARE (WNR) MEDICARE (M) PART B Feb 13, 2012 PART B [id number] JUANI HENDRIX PATIENT MEDICARE (WNR) MEDICARE (M) PART B Feb 13, 2012 PART B [id number] JUANI HENDRIX PATIENT MEDICARE (WNR) MEDICARE (M) PART B Feb 13, 2012 PART B [id number] JUANI HENDRIX PATIENT MEDICARE (WNR) MEDICARE (M) PART A May 14, 2011 PART A [id number] JUANI HENDRIX PATIENT MEDICARE (WNR) MEDICARE (M) PART A May 14, 2011 PART A [id number] JUANI HENDRIX PATIENT MEDICARE (WNR) MEDICARE (M) PART A May 14, 2011 PART A [id number] JUANI HENDRIX PATIENT MEDICARE (WNR) MEDICARE (M) PART A May 14, 2011 PART A [id number] [phone] JUANI HENDRIX PATIENT MEDICARE PART D (WNR) PRESCRIPT ION PART D Feb 12, 2021 PART D [id number] JUANI HENDRIX PATIENT Selected Encounter This section includes the information on record at MA for the Encounter. Date/Time Encounter Type Encounter Description Reason Provider Source May 17, 2023 10:00 AM OFFICE O/P EST MOD 30 MIN [facility] - IND ICD-10-CM F41.9 Anxiety disorder, unspecified [facility] Encounter Template Text not used by MA Assessments - Encounter Diagnoses This section includes the primary and secondary diagnoses documented for the Encounter. Date/Time Primary/Secondary Diagnosis Diagnosis Name Provider Source Jun 08, 2023 10:15 AM PRIMARY Anxiety disorder, unspecified [facility] [place] [facility] Plan of Treatment: Future Appointments (+ 6 [...] 24, 2023 08:00 AM AMBULATORY - NEUROLOGY [facility] Jun 01, 2023 09:30 AM AMBULATORY - NONE [facility] June 29, 2023 12:15 PM AMBULATORY - NONE [facility] Oct 08, 2023 10:00 AM AMBULATORY - MEDICINE [facility] Oct 25, 2023 09:30 AM AMBULATORY [facility]IATRY [facility] Oct 30, 2023 03:30 PM AMBULATORY - MEDICINE [facility] Oct 30, 2023 04:15 PM AMBULATORY - MEDICINE [facility] Nov 05, 2023 03:00 PM AMBULATORY - MEDICINE [facility] Lab Results: +/- 30 days of the encounter This section includes the Chemistry and Hematology Lab Results on record with MA for the patient. Radiology Reports and Pathology Reports are provided separately, in subsequent sections. Lab Results This section contains the Chemistry/Hematology Results that were resulted 30 days before or 30 daysafter the date of the Encounter. Date/Time Source Result Type Result - Unit Interpretation Reference Range Comment Jun 01, 2023 09:22 AM [facility] ANTI-TREPONEMA PALLIDUM IgG Specimen Type: SERUM No comment entered. Ordering Provider: IOANA WHEELER Report Released Date/Time: May 24, 2023 08:52 AM Reporting Lab: [facility] [address] [facility] [id number] Performing Lab: [facility] [address] [address] [facility] [address] ANTI-TREPONEMA PALLIDUM IgG NEGATIVE NEGATIVE Jun 01, 2023 09:22 AM [facility] VITAMIN B-12 & FOLATE Specimen Type: SERUM No comment entered. Ordering Provider: IOANA WHEELER Report Released Date/Time: May 24, 2023 08:52 AM Reporting Lab: [facility] [address] [address] [facility] [address] Performing Lab: [facility] [address] [address] [facility] [address] FOLATE, SERUM 19.0 ng/mL >= 5.4 VITAMIN B-12 489 pg/mL >= 218 Jun 01, 2023 09:22 AM [facility] HEMOGLOBIN A1C Specimen Type: BLOOD Comment: Values [...] AM Reporting Lab: [facility] [address] [facility] [facility] [address] Performing Lab: [facility] [address] [facility] [address] HEMOGLOBIN A1C 5.4 4.4-6.0 Jun 01, 2023 09:22 AM [facility] THYROID STIMULATING HORMONE Specimen Type: PLASMA No comment entered. Ordering Provider: IOANA WHEELER Report Released Date/Time: May 24, 2023 08:52 AM Reporting Lab: [facility] [address] [facility] [address] Performing Lab: [facility] [address] [facility] [address] THYROID STIMULATING HORMONE 1.658 u[IU]/mL 0.4600-4.70 00 Jun 01, 2023 09:22 AM [facility] HIV ANTIGEN-ANTIBODY PANEL Specimen Type: SERUM Comment: Nonreactive. HIV-1 p24 Ag and HIV-1/HIV-2 Ab not detected. Confirmation HIV 1/2 not indicated Ordering Provider: IOANA WHEELER Report Released Date/Time: May 24, 2023 08:52 AM Reporting Lab: [facility] [address] [facility] [address] Performing Lab: [facility] [address] [facility] [address] HIV-1/2 ANTIGEN-ANTIBOD Y Non Reactive HIV-1 CONFIRMATION [facility] HIV-2 ANTIBODY CONFIRM [facility] Social History: Smoking Status (Most current) and Tobacco Use (All prior to encounter date) This section includes the most current, and the historical, smoking and tobacco- related health factors from the [place] facility where the Encounter took place. Current Smoking Status This section includes the most current smoking, or tobacco-related health factor, from the [place] facility where the Encounter took place. Date/Time Current Smoking Status Comment Olaf blackwood Oct 12, 2022 03:30 PM VA-TOBACCO NEVER USED [facility] [place] [facility] Tobacco Use History This section includes a history of the smoking, or tobacco-related health factors, that were collected on or before the date of the Encounter. The data comes from the [place] facility where the Encounter took place. Date/Time Smoking Status/Tobacco Use Comment Juan A hess Mar 03, 2021 08:49 AM VA-TOBACCO NEVER USED [facility] [place] [facility] Jul 30, 2019 09:13 AM VA-TOBACCO FORMER USER [facility] [place] [facility] Jul 30, 2019 09:13 AM VA-TOBACCO QUIT 15 YRS OR MORE [facility] [place] [facility] Mar 20, 2018 12:10 PM VA-TOBACCO NEVER USED [facility] [place] [facility] Dec 14, 2016 11:39 AM LIFETIME NON-TOBACCO USER [facility] [place] [facility] Dec 14, 2014 10:59 AM LIFETIME NON-TOBACCO USER [facility] [place] [facility] Encounter Notes: All associated encounter notes This section contains the clinical notes associated to the Encounter. Date/Time Encounter Note(s) Provider Source Aug 06, 2023 07:33 AM ACCOUNTING OF DISCLOSURES NOTE: LOCAL TITLE: STATE PRESCRIPTION DRUG MONITORING PROGRAM STANDARD TITLE: ACCOUNTING OF DISCLOSURES NOTE DATE OF NOTE: AUG 06, 2023@07:33:25 ENTRY DATE: AUG 06, 2023@07:33:25 AUTHOR: RALPH KENNEDY EXP COSIGNER: URGENCY: STATUS: COMPLETED This PDMP query was submitted by Ralph Kennedy WALNUT DEHYDRATOR OPERATOR. The clinical justification for this PDMP query is to review controlled substances prescribed outside of the [facility], and any additional information that may become available, as an important component of standard clinical care, and in accordance with [facility] policy. Patient information was shared with the PDMP [employer] [place]. No prescription(s) for controlled substances outside the [facility] were found in the last 90 days. 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 Often stays up worrying at night, on his phone, not sleeping. Met with , who was lying in bed with him under the covers. thinks he should stay at the 25mg of sertraline and not switch it. and vet think the stress is normal due to the chem trails. Vet is also struggling with tinnitus and prostate problems. They believe that on May 20 many changes will happen on [place]. They believe that [employer] and [employer] are taking action, which seems suspicious. Vet feels the VA is ok, but overall don't trust the government. They worry about nearby helicopters. They have been getting extra gasoline and food in preparation for a possible blackout. They are hearing these concerns on news channels. Is getting PT for neck pain. Otherwise no treatments outside of the [facility]. Will being seeing a neurologist due to a tremor in his hands b/l that has been getting worse. Will be getting an MRI. 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 Pt was reminded [...] Resources Only: E911 (Emergency Call Relay Center): [phone] [facility] Crisis Line - (3-140-767-TALK) press #1. ZUHAIR Suicide Coordinator ? [phone], Ext. [phone]; Back-up Ext. [phone] [employer] of the Day(AOD), Moisés MOFFETT ? [phone], Ext. [phone] Introduction: Visit is being conducted by [employer] [facility]. identified with 2 identifiers: [X] Full Name [X] Date of [ ] VA ID Card Emergency Plan: confirmed and/or provided the following information in case of emergency or technology failure. Owen's present location and address for appointment: Located at home address as in CPRS Owen's emergency contact name and phone number: Emergency contact as per listed in chart Owen reported that location is private and safe: Yes Informed Consent: informed of the risks and benefits of Telehealth video care. Owen has the right to refuse video services. If refuses video visit, a ydzf-na-tezp visit will be scheduled. verbalized consent for this video visit: Yes Owen provided consent for any other persons present for visit: Yes If yes, who and relationship to patient: Secure visit: Visit was locked for security and privacy:Yes __ _ __ /nicolasa/ ADRIAN KOHLER PSYCHIATRIST Signed: 05/18/2023 14:22 ADRIAN KOHLER [facility]
--- OUTSIDE RECORDS SUMMARY | 2024-01-30 09:23 | XMS_ITS | Encounter Summary ---
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 MEDICARE SUPPLEMEN [facility] June 12, 2013 PLANF [id number] [phone] JUANI HENDRIX PATIENT [facility] MEDICARE SUPPLEMEN [facility] Apr 12, 2012 MEDICAR E SUPPLEM E [id number] JUANI HENDRIX PATIENT MEDICARE (WNR) MEDICARE (M) PART B Feb 13, 2012 PART B [id number] JUANI HENDRIX PATIENT MEDICARE (WNR) MEDICARE (M) PART B Feb 13, 2012 PART B [id number] JUANI HENDRIX PATIENT MEDICARE (WNR) MEDICARE (M) PART B Feb 13, 2012 PART B [id number] JUANI HENDRIX PATIENT MEDICARE (WNR) MEDICARE (M) PART B Feb 13, 2012 PART B [id number] JUANI HENDRIX PATIENT MEDICARE (WNR) MEDICARE (M) PART A May 14, 2011 PART A [id number] JUANI HENDRIX PATIENT MEDICARE (WNR) MEDICARE (M) PART A May 14, 2011 PART A [id number] JUANI HENDRIX PATIENT MEDICARE (WNR) MEDICARE (M) PART A May 14, 2011 PART A [id number] JUANI HENDRIX PATIENT MEDICARE (WNR) MEDICARE (M) PART A May 14, 2011 PART A [id number] JUANI HENDRIX PATIENT MEDICARE PART D (WNR) PRESCRIPT ION PART D Feb 12, 2021 PART D [id number] JUANI HENDRIX PATIENT Selected Encounter This section includes the information on record at [place] for the Encounter. Date/Time Encounter Type Encounter Description Reason Pro vider Source Aug 20, 2023 01:25 PM Outpatient Encounter ADMIN PAT ACTIVTIES (MASNONCT) IHE Encounter Template Text not used by [place] Plan of Treatment: Future Appointments (+ 6 months) and Future Tests (+/- 45 days) The Plan of Treatment section includes future care activities for the patient from all [place] treatmentfacilities. This section includes future appointments and future orders which are active, pending or scheduled. Future Appointments This section includes appointments that were scheduled to occur 6 months from the date of the Encounter, up to a maximum of 20 appointments. The data comes from all [place] treatment facilities. Appointment Date/Time Appointment Type Appointme nt Facility Name Oct 08, 2023 10:00 AM AMBULATORY - MEDICINE [facility] [place] [facility] Oct 25, 2023 09:30 AM AMBULATORY - PSYCHIATRY [facility] [place] [facility] Oct 30, 2023 03:30 PM AMBULATORY - MEDICINE [facility] [place] [facility] Oct 30, 2023 04:15 PM AMBULATORY - MEDICINE [facility] [place] [facility] Nov 05, 2023 03:00 PM AMBULATORY - MEDICINE [facility] [place] [facility] Nov 21, 2023 03:30 PM AMBULATORY - MEDICINE [facility] [place] [facility] Dec 27, 2023 11:00 AM AMBULATORY - PSYCHIATRY [facility] [place] [facility] Jan 01, 2024 12:30 PM [facility] Social History: Smoking Status (Most current) and Tobacco Use (All prior to encounter date) This section includes the most current, and the historical, smoking and tobacco- related health factors from the [place] facility where the Encounter took place. Current Smoking Status This section includes the most current smoking, or tobacco-related health factor, from the [place] facility where the Encounter took place. Date/Time Current Smoking Status Comment Facil ity Oct 12, 2022 03:30 PM VA[facility]TOBACCO [facility] Tobacco Use History This section includes a history of the smoking, or tobacco-related health factors, that were collected on or before the date of the Encounter. The data comes from the [place] facility where the Encounter took place. Date/Time Smoking Status/Tobacco Use Comment F acility Mar 03, 2021 08:49 AM VA-TOBACCO NEVER USED [facility] [place] [facility] Jul 30, 2019 09:13 AM VA-TOBACCO FORMER USER [facility] [place] [facility] Jul 30, 2019 09:13 AM VA-TOBACCO QUIT 15 YRS OR MORE [facility] [place] [facility] Mar 20, 2018 12:10 PM VA-TOBACCO NEVER USED [facility] [place] [facility] Dec 14, 2016 11:39 AM LIFETIME NON-TOBACCO USER [facility] [place] [facility] Dec 14, 2014 10:59 AM LIFETIME NON-TOBACCO USER [facility] [place] [facility] Encounter Notes: All associated encounter notes This section contains the clinical notes associated to the Encounter. Date/Time Encounter Note(s) Provider Source Aug 20, 2023 01:44 PM ADDENDUM: LOCAL TITLE: Addendum STANDARD TITLE: ADDENDUM DATE OF NOTE: AUG 20, 2023@13:44:49 ENTRY DATE: AUG 20, 2023@13:44:49 AUTHOR: RALPH KENNEDY COSIGNER: URGENCY: STATUS: COMPLETED [place] is getting the maximum allowed. /es/ ALEXIS Hoyos DNP, URSZULA Primary Care Nurse Practitioner Signed: 08/20/2023 13:45 Receipt Acknowledged By: 08/20/2023 13:53 /nicolasa/ Melissa MONTELONGO RN URSZULA Primary Care RN === --- Original Document --- 08/20/23 CCC: SCHEDULING ADMINISTRATION: Patient Demographics Patient Name: JUANI HENDRIX Patient Primary Phone: [phone] Patient Primary Address: [address] [place] [id number] Patient : 1945 Patient Age: 77 Caller/Recipient Relation to Patient: Self Scheduling Patient Expects Callback: Yes Open Request: None of the above Administrative Administrative Note Reason: Other Administrative Note Comments: Patient is requesting a call back, about getting a quantity increase for Rx #[id number] - SILDENAFIL CITRATE 100MG TAB Please call back to confirm. /nicolasa/ DEBBIE GILL [facility] AMSA Signed: 08/20/2023 13:25 Receipt Acknowledged By: * AWAITING SIGNATURE * DEMETRIUS SEPULVEDA 08/20/2023 13:31 /nicolasa/ Melissa Walton MSN RN CNL Primary Care RN 08/20/2023 ADDENDUM STATUS: COMPLETED Advised Vet there may be limitations on allowed dosing for this medication. He is interested in having more than 6 pills per month is possible. Will alert PCP to request. /nicolasa/ Melissa Walton MSN RN URSZULA Primary Care RN Signed: 08/20/2023 13:31 Receipt Acknowledged By: 08/20/2023 13:44 /nicolasa/ ALEXIS Hoyos DNP, URSZULA Primary Care Nurse Practitioner 08/20/2023 ADDENDUM STATUS: UNSIGNED You may not VIEW this UNSIGNED Addendum. RALPH KENNEDY [facility] Aug 20, 2023 01:28 PM ADDENDUM: LOCAL TITLE: Addendum STANDARD TITLE: ADDENDUM DATE OF NOTE: AUG 20, 2023@13:28:42 ENTRY DATE: AUG 20, 2023@13:28:43 AUTHOR: MELISSA WALTON COSIGNER: URGENCY: STATUS: COMPLETED Advised Vet there may be limitations on allowed dosing for this medication. He is interested in having more than 6 pills per month is possible. Will alert PCP to request. /es/ Melissa Walton MSN RN CNL Primary Care RN Signed: 08/20/2023 13:31 Receipt Acknowledged By: 08/20/2023 13:44 /es/ Ralph Kennedy DNP, GRAVEL TRUCK DRIVER-, CNL Primary Care Nurse Practitioner === --- Original Document --- 08/20/23 CCC: SCHEDULING ADMINISTRATION: Patient Demographics Patient Name: JUANI HENDRIX Patient Primary Phone: [phone] Patient Primary [address]: [address] [place] [address] Patient : 1945 Patient Age: 77 Caller/Recipient Relation to Patient: Self Scheduling Patient Expects Callback: Yes Open Request: None of the above Administrative Administrative Note Reason: Other Administrative Note Comments: Patient is requesting a call back, about getting a quantity increase for Rx #[id number] - SILDENAFIL CITRATE 100MG TAB Please call back to confirm. /es/ DEBBIE GILL [facility] AMS[facility] Signed: 08/20/2023 13:25 Receipt Acknowledged By: * AWAITING SIGNATURE * DEMETRIUS SEPULVEDA 08/20/2023 13:31 /nicolasa/ Melissa Walton MSN RN CNL Primary Care RN 08/20/2023 ADDENDUM STATUS: UNSIGNED You may not VIEW this UNSIGNED Addendum. MELISSA WALTON [facility] [place] [facility] Aug 20, 2023 01:25 PM ADMINISTRATIVE NOTE: LOCAL TITLE: CCC: SCHEDULING ADMINISTRATION STANDARD TITLE: ADMINISTRATIVE NOTE DATE OF NOTE: AUG 20, 2023@13:25:42 ENTRY DATE: AUG 20, 2023@13:25:43 AUTHOR: DEBBIE BECERRA COSIGNER: URGENCY: STATUS: COMPLETED CCC: SCHEDULING ADMINISTRATION Has ADDENDA Patient Demographics Patient Name: JUANI HENDRIX Patient Primary Phone: [phone] Patient Primary [address]: [address] [place] [address] Patient : 1945 Patient Age: 77 Caller/Recipient Relation to Patient: Self Scheduling Patient Expects Callback: Yes Open Request: None of the above Administrative Administrative Note Reason: Other Administrative Note Comments: Patient is requesting a call back, about getting a quantity increase for Rx #[id number] - SILDENAFIL CITRATE 100MG TAB Please call back to confirm. /nicolasa/ DEBBIE BECERRA [facility] AMSA Signed: 08/20/2023 13:25 Receipt Acknowledged By: 08/21/2023 10:29 /nicolasa/ Demetrius Sepulveda, Health Promotion Writer GARBAGE COLLECTOR,PRIMARY CARE 08/20/2023 13:31 /nicolasa/ Melissa MONTELONGO RN CNL Primary Care RN 08/20/2023 ADDENDUM STATUS: COMPLETED Advised Vet there may be limitations on allowed dosing for this medication. He is interested in having more than 6 pills per month is possible. Will alert PCP to request. /kevin MONTELONGO RN CNL Primary Care RN Signed: 08/20/2023 13:31 Receipt Acknowledged By: 08/20/2023 13:44 /ALEXIS Ngo DNP, HILTONL Primary Care Nurse Practitioner 08/20/2023 ADDENDUM STATUS: COMPLETED [place] is getting the maximum allowed. /nicolasa/ ALEXIS Hoyos DNP, HILTONL Primary Care Nurse Practitioner Signed: 08/20/2023 13:45 Receipt Acknowledged By: 08/20/2023 13:53 /nicolasa/ Melissa MONTELONGO RN CNL Primary Care RN 08/20/2023 ADDENDUM STATUS: COMPLETED Vet advised /kevin MONTELONGO RN CNL Primary Care RN Signed: 08/20/2023 13:53 [facility]E [facility]RA [facility]
--- OUTSIDE RECORDS SUMMARY | 2024-01-30 09:24 | XMS_ITS | Encounter Summary ---
Author Name [facility] [place] Organization [facility] [place] Address [address] [place] [id number] Care Team Providers Care Nonprofit Manager Name Role Phone RALPH HESTER Primary Care Provider [facility] Insurance Providers: All historical and current [...] Alarcon's Name Patient's Relationship to Policy Alarcon [facility] ([facility]) MEDICARE SUPPLEMEN [facility] June 12, 2013 PLANF [id number] LUIS BRAND PATIENT [facility] Apr 12, 2012 MEDICAR E SUPPLEM E [id number] LUIS BRAND PATIENT MEDICARE (WNR) MEDICARE (M) PART B Feb 13, 2012 PART B [id number] LUIS BRAND PATIENT MEDICARE (WNR) MEDICARE (M) PART B Feb 13, 2012 PART B [id number] LUIS BRAND PATIENT MEDICARE (WNR) MEDICARE (M) PART B Feb 13, 2012 PART B [id number] LUIS BRAND PATIENT MEDICARE (WNR) MEDICARE (M) PART B Feb 13, 2012 PART B [id number] LUIS BRAND PATIENT MEDICARE (WNR) MEDICARE (M) PART A May 14, 2011 PART A [id number] LUIS BRAND PATIENT MEDICARE (WNR) MEDICARE (M) PART A May 14, 2011 PART A [id number] LUIS BRAND PATIENT MEDICARE (WNR) MEDICARE (M) PART A May 14, 2011 PART A [id number] LUIS BRAND PATIENT MEDICARE (WNR) MEDICARE (M) PART A May 14, 2011 PART A [id number] LUIS BRAND PATIENT MEDICARE PART D (WNR) PRESCRIPT ION PART D Feb 12, 2021 PART D [id number] LUIS BRAND PATIENT Selected Encounter This section includes the information on record at [place] for the Encounter. Date/Time Encounter Type Encounter Description Reason Provider Source Oct 30, 2023 03:30 PM OFFICE O/P EST MOD 30 MIN OPTOMETRY ICD-10-CM L71.8 Other rosaYARON Christiansen [facility] Encounter Template Text not used by [place] Assessments - Encounter Diagnoses This section includes the primary and secondary diagnoses documented for the Encounter. Date/Time Primary/Secondary Diagnosis Diagnosis Name Provider Source Oct 31, 2023 09:34 AM PRIMARY Other rosacea YARON MEEK [facility] [place] [facility] Oct 31, 2023 09:34 AM SECONDARY Combined forms of age-related cataract, bilateral YARON MEEK [facility] [place] [facility] Oct 31, 2023 09:34 AM SECONDARY Dry eye syndrome of bilateral lacrimal glands YARON MEEK [facility] [place] [facility] Oct 31, 2023 09:34 AM SECONDARY Nexdtve age-related mclr degn, bilateral, early dry stage YARON MEEK [facility] [place] [facility] Oct 31, 2023 09:34 AM SECONDARY Rhinophyma YARON MEEK [facility] [place] [facility] Plan of Treatment: Future Appointments (+ 6 months) and Future Tests (+/- 45 days) The Plan of Treatment section includes future care activities for the patient from all [place] [facility] This section includes future appointments and future orders which are active, pending or scheduled. Future Appointments This section includes appointments that were scheduled to occur 6 months from the date of the Encounter, up to a maximum of 20 appointments. The data comes from all [place] treatment facilities. Appointment Date/Time Appointment Type Appointme nt Facility Name Nov 05, 2023 03:00 PM AMBULATORY - MEDICINE [place] [facility] [place] [facility] Nov 21, 2023 03:30 PM AMBULATORY - MEDICINE [facility] [place] [facility] Dec 27, 2023 11:00 AM AMBULATORY - PSYCHIATRY [facility] [place] [facility] Jan 01, 2024 12:30 PM AMBULATORY - MEDICINE [facility] [place] [facility] Mar 27, 2024 09:30 AM [facility] Social History: Smoking Status (Most current) and Tobacco Use (All prior to encounter date) This section includes the most current, and the historical, smoking and tobacco- related health factors from the [place] facility where the Encounter took place. Current Smoking Status This section includes the most current smoking, or tobacco-related health factor, from the [place] facility where the Encounter took place. Date/Time Current Smoking Status Comment Olaf ity Oct 12, 2022 03:30 PM [facility] Tobacco Use History This section includes a history of the smoking, or tobacco-related health factors, that were collected on or before the date of the Encounter. The data comes from the [place] facility where the Encounter took place. Date/Time Smoking Status/Tobacco Use Comment F acility Mar 03, 2021 08:49 AM VA-TOBACCO NEVER USED [facility] [place] [facility] Jul 30, 2019 09:13 AM VA-TOBACCO FORMER USER [facility] [place] [facility] Jul 30, 2019 09:13 AM VA-TOBACCO QUIT 15 YRS OR MORE [facility] Mar 20, 2018 12:10 PM VA-TOBACCO NEVER USED [facility] [place] [facility] Dec 14, 2016 11:39 AM LIFETIME NON-TOBACCO USER [facility] [place] [facility] Dec 14, 2014 10:59 AM LIFETIME NON-TOBACCO USER [facility] Encounter Notes: All associated encounter notes This section contains the clinical notes associated to the Encounter. Date/Time Encounter Note(s) Provider Source Oct 30, 2023 04:13 PM OPTOMETRY NOTE: LOCAL TITLE: OPTOMETRY NOTE STANDARD TITLE: OPTOMETRY NOTE DATE OF NOTE: OCT 30, 2023@16:13 ENTRY DATE: OCT 30, 2023@16:13:35 AUTHOR: NOLAN MEEK COSIGNER: URGENCY: STATUS: COMPLETED OPTOMETRY NOTE Has ADDENDA Active problems - Computerized Problem List is the source for the followin. Generalized anxiety disorder 2. Erectile dysfunction 3. Tinnitus 4. Chronic insomnia 5. Anxiety disorder 6. Basal cell carcinoma of nose 7. Coronary arteriosclerosis 8. Benign prostatic hypertrophy 9. Chronic recurrent sinusitis Active Outpatient Medications (including Supplies): Active Outpatient Medications Status 1) MELATONIN 5MG CAP/TAB TAKE TWO CAPSULE/TABLET BY ACTIVE MOUTH AT BEDTIME FOR INSOMNIA 2) SERTRALINE HCL 50MG TAB TAKE ONE TABLET BY MOUTH ONCE ACTIVE DAILY ANXIETY 3) SILDENAFIL CITRATE 100MG TAB TAKE ONE TABLET BY MOUTH ACTIVE ONCE DAILY NEEDED TAKE 1 HOUR PRIOR TO SEXUAL ACTIVITY 4) ZOLPIDEM TARTRATE 10MG TAB TAKE ONE TABLET BY MOUTH ACTIVE AT BEDTIME NEEDED FOR SLEEP Pending Outpatient Medications Status 1) CARBOXYMETHYLCELLULOSE NA 0.5% OPH SOLN INSTILL 1 PENDING DROP INTO EACH EYE THREE TIMES DAILY NEEDED 2) DEXAMETHASONE 0.1/TOBRAMYC 0.3% OPH OINT APPLY THIN PENDING RIBBON INTO EACH EYE AT BEDTIME 3) EYELID CLEANSER,EYE SCRUB PAD USE 1 PAD TOPICALLY PENDING ONCE DAILY Active Non-VA Medications Status 1) Non-VA ASPIRIN 81MG EC TAB 81MG BY MOUTH ONCE DAILY ACTIVE 2) Non-VA FLUTICASONE PROP 50MCG 120D NASAL INHL 2 ACTIVE SPRAYS INTO EACH NOSTRIL ONCE DAILY 3) Non-VA OTHER CAP/TAB IVERMECTIN 12MG BY MOUTH ON ACTIVE SUNDAY 4) Non-VA TAMSULOSIN HCL 0.4MG CAP 0.8MG BY MOUTH ONCE ACTIVE DAILY 11 Total Medications Allergies: CEFUROXIME, SILDENAFIL All medications including those prescribed by outside VA's, community providers, and all OTC meds were reviewed and reconciled with patient to the best of their abilities. This 78 year old MALE is seen today for comprehensive eye examination. Medical, eye, personal, and social history are all reviewed and is contributory to today's visit for facial and ocular rosacea with dry eye disease each eye, bilateral cataracts as well as bilateral nonexudative macular degeneration. He is followed here by Dr. Emma Lane who recommended cataract surgery December 2022 but patient did not follow through at that time. He also sees an chicken fancier in [place] eye Dr. Toledo who has not recommended cataract surgery because of his macular degeneration. He last saw Dr. Toledo June 2023 he is currently taking a non-VA ocular supplements for macular degeneration but is taking AREDS 2 in the past and is requesting refills on AREDS 2. He presents today complaining of fluctuating vision both eyes. He feels he is experienced a general decline in his vision since he contracted COVID June 2022. Chief Complaint: Decreased distance and near vision fluctuating vision Vision: With 20/30+/- right eye 20/30+/- left eye Without Correction Pupils, EOMS, confrontation nicole are all done and shows round reactive pupils without afferent pupillary defect with full extraocular motility and full confrontation nicole to finger counting each eye Amsler grid testing: OD: Normal OS: Blurred around fixation Current Wear: OD: +1.50 -0.75 axis 090 OS: +1.50 +2.50 add Autorefraction: OD: +1.75 -1.50 axis 091 OS: [place] -0.25 axis 145 Refraction: OD: +2.00-1.25 axis 090 20/20 (slow) OS: +1.00 20/20-1 +2.50 add 20/20 - Tonometry: 12 OD 12 OS Time: 3:50 PM dilated with tropicamide 1% and phenylephrine 2.5% each eye after dilation warning given and verbal consent obtained PreTreatment IOP: OD OS Pachymetry: Florid rosacea facies with rhinophyma Anterior segment: Lids: Dermatochalasis, ptosis with 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 Conj: Trace chronic injection each eye Cornea: Clear centrally with instantaneous tear break-up time and reduced tear meniscus each eye but without luis SPK AC: 3+ and quiet each eye Iris: Normal each eye Lens:3 nuclear sclerosis with anterior cortical changes left greater than right eye Vit: Clear each eye Fundus exam: Dilated: Non dilated: C/D: 0.25 each eye Macula: Mild RPE mottling but without evidence of subretinal fluid, subretinal blood, exudate or thickening either eye A/V: 1/2 each eye Vessels: Normal each eye Periphery: No obvious holes, tears, detachments each eye Impression: 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 Instantaneous tear break-up time with reduced tear meniscus consistent with complaint of fluctuating and variable vision. Start unit dose lubricating drops 4 times a day each eye. 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 Will also treat with brief course of TobraDex ointment at bedtime for 14 days. Brunescent nuclear sclerotic and cortical cataracts left greater than right eye primary cause of decreased best corrected acuity. Likely would benefit from cataract surgery in the near future. Ordering new glasses today with understanding that likely he will require cataract surgery in the next 6 months to a year. Bilateral early stage nonexudative macular degeneration with mild RPE mottling without evidence of subretinal fluid, subretinal blood, exudate or thickening either eye. He is currently using an ocular supplement called macular PF but is agreeable to restarting AREDS 2 twice a day by mouth which he is also taken in the past. Will order AREDS 2 now for mail out. Plan: Patient education as noted above reviewed exam and imaging findings now. Update glasses today with understanding likely will have cataract surgery in the next 6 to 12 months. Renew lubricating drops for mail out Order TobraDex ointment at bedtime for 14 days and stop. Order AREDS two 1 capsule twice a day by mouth Order lid scrubs to be used daily. Order Kanika mask to be used daily for 3 to 5 minutes. Written directions as noted below Education: Discussed presence of facial and ocular rosacea as well as dry eye disease and how this relates to symptoms of fluctuating and variable vision. Discussed presence of visually significant cataracts which likely ultimately would benefit from cataract surgery. He understands the degree of macular degeneration present would be considered in the early stage and likely he will experience significant improvement in vision with cataract surgery. He also understands that macular degeneration can progress unrelated to cataract surgery and one of the goals of ocular supplements is to reduce the rate of progression of cataracts. Luis Brand 10/30/23 * Tobradex ointment at bedtime each eye for 14 days. * Unit dose lubricating drops 4 x a day each eye. * Eye lid wipes daily each eye. * Kanika mask daily 3-5 minutes. Warm mask in microwave for 15 seconds Test temperature of mask against the back of your hand before applying to your eyelids. Return to Clinic mid December 2023 for reassessment of ocular dryness or sooner if need be. Consider, Restasis, punctal plug insertion as well as brief course of Doxy and minocycline if dry eye disease and ocular rosacea is not significantly improved. Ophthalmic medication reconciliation as noted above Medication Reconciliation: Outpatient: Has the patient been taking medications as documented in the EMLR? YES: The patient has been taking medications as documented in the EMLR. Essential Medication List for Review used to complete this medication reconciliation. INCLUDED IN THIS LIST: Alphabetical list of active outpatient prescriptions dispensed from this [place] (local) and dispensed from another [place] or [facility] facility (remote) as well as inpatient orders (local, pending and active), local clinic medications, locally documented non-VA medications, and local prescriptions that have or been discontinued in the past 90 days. - All changes in medications, including all non-VA/Herbal/OTC medications were entered into CPRS. Changes: TobraDex ointment at bedtime for 14 , AREDS 2, lubricating drops - If there were any medications the patient should no longer take, they were discontinued. - The patient/caregiver was instructed to update this list, discard old lists, and take this list to the next appointment, whether with a VA or non-VA provider. JLV Link Data on this list may not be complete. Please check JLV. Allergies/ADRs (Tool #5) FACILITY ALLERGY/ADR -------- [facility] NO KNOWN ALLERGIES [facility] NO KNOWN ALLERGIES [facility] [place] [facility] CEFUROXIME [facility] [place] [facility] SILDENAFIL Med Recon NoGlossary (Tool #1) INCLUDED IN THIS LIST: Alphabetical list of active outpatient prescriptions dispensed from this VA (local) and dispensed from another VA or [facility] facility (remote) as well as inpatient orders (local pending and active), local clinic medications, locally documented non-VA medications, and local prescriptions that have or been discontinued in the past 90 days. Non-VA Meds Last Documented On: Dec 05, 2021 NOTE The display of VA prescriptions dispensed from another VA or [facility]D facility (remote) is limited to active outpatient prescription entries matched to National Drug File at the originating site and may not include some items such as investigational drugs, compounds, etc. NOT INCLUDED IN THIS LIST: Medications self-entered by the patient into personal health records (i.e. [facility]) are NOT included in this list. Non-VA medications documented outside this [place], remote inpatient orders (regardless of status) and remote clinic medications are NOT included in this list. The patient and provider must always discuss medications the patient is taking, regardless of where the medication was dispensed or obtained. Non-VA ASPIRIN 81MG EC TAB TAKE ONE TABLET BY MOUTH ONCE DAILY Medication prescribed by Non-VA provider. OUTPT CARBOXYMETHYLCELLULOSE NA 0.5% OPH SOLN (Status = ) INSTILL 1 DROP INTO EACH EYE THREE TIMES DAILY NEEDED FOR DRY EYE Rx# [id number] Last Released: 05/25/23 Qty/Days Supply: Rx Expiration Date: 10/18/23 Refills Remainin Indication: FOR DRY EYE OUTPT CARBOXYMETHYLCELLULOSE NA 0.5% OPH SOLN (Status = Pending) INSTILL 1 DROP INTO EACH EYE THREE TIMES DAILY NEEDED FOR DRY EYE Renewed from Rx# [id number] Qty/Days Supply: Login Date: 10/30/23 Refills Ordered: 3 OUTPT DEXAMETHASONE 0.1/TOBRAMYC 0.3% OPH OINT (Status = Pending) 0.1/TOBRAMYC 0.3% OPH OINT APPLY THIN RIBBON INTO EACH EYE AT BEDTIME Login Date: 10/30/23 Qty/Days Supply: 02/25 Refills Ordered: 1 OUTPT EYELID CLEANSER,EYE SCRUB PAD (Status = Pending) USE 1 PAD TOPICALLY ONCE DAILY Login Date: 10/30/23 Qty/Days Supply: Refills Ordered: 3 Non-VA FLUTICASONE PROP 50MCG 120D NASAL INHL INSTILL 2 SPRAYS INTO EACH NOSTRIL ONCE DAILY OUTPT MELATONIN 5MG CAP/TAB (Status = Active) TAKE TWO CAPSULE/TABLET BY MOUTH AT BEDTIME FOR INSOMNIA Rx# [id number] Last Released: 10/30/23 Qty/Days Supply: Rx Expiration Date: 01/23/24 Refills Remainin Indication: FOR INSOMNIA OUTPT MULTIVIT/OPHTH AREDS2/LUTE/ZEAX CAP/TAB (Status = Pending) AREDS2/LUTE/ZEAX CAP/TAB TAKE 1 CAPSULE BY MOUTH TWICE DAILY IN THE MORNING AND EVENING, WITH FOOD Login Date: 10/30/23 Qty/Days Supply: 120/60 Refills Ordered: 5 Non-VA OTHER CAP/TAB TAKE IVERMECTIN 12MG BY MOUTH ON SUNDAY Remote PRIMIDONE 50MG TAB TAKE ONE TABLET BY MOUTH EVERY DAY TREMOR Last Filled: 05/24/23 (Active at [facility]) Rx Expiration Date: 05/24/24 Days Supply: 30 OUTPT SERTRALINE HCL 50MG TAB (Status = Active) TAKE ONE TABLET BY MOUTH ONCE DAILY ANXIETY Rx# [id number] Last Released: 08/11/23 Qty/Days Supply: Rx Expiration Date: 05/17/24 Refills Remainin Indication: ANXIETY OUTPT SILDENAFIL CITRATE 100MG TAB (Status = Active) TAKE ONE TABLET BY MOUTH ONCE DAILY NEEDED TAKE 1 HOUR PRIOR TO SEXUAL ACTIVITY Rx# [id number] Last Released: 09/10/23 Qty/Days Supply: Rx Expiration Date: 05/23/24 Refills Remainin Indication: FOR ERECTILE DYSFUNCTION Non-VA TAMSULOSIN HCL 0.4MG CAP TAKE 2 CAPSULES BY MOUTH ONCE DAILY Medication prescribed by Non-VA provider. OUTPT ZOLPIDEM TARTRATE 10MG TAB (Status = Active) TAKE ONE TABLET BY MOUTH AT BEDTIME NEEDED FOR SLEEP Rx# [id number] Last Released: 09/17/23 Qty/Days Supply: Rx Expiration Date: 02/06/24 Refills Remainin Indication: FOR SLEEP SUPPLIES Printed ocular medication list provided with dosing regimen as well as use of lid wipes and Kanika mask /nicolasa/ Nolan Meek OD CHIEF OF OPTOMETRY Signed: 10/31/2023 09:34 10/31/2023 ADDENDUM STATUS: COMPLETED Total time spent reviewing previous records, examining patient, counseling patient and entering orders 39 minutes -3 minutes for refration =36 minutes. /nicolasa/ Nolan Meek OD CHIEF OF OPTOMETRY Signed: 10/31/2023 09:36 NOLAN MEEK [facility]
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
--- OUTSIDE RECORDS SUMMARY | 2024-01-30 09:24 | XMS_ITS | Encounter Summary ---
Author Name Department of [place] Organization Department of [place] Address [address] [place] [address] Care Team Providers Care Nuclear Logging Engineer Name Role Phone RALPH HESTER [facility] Insurance Providers: All historical and current [...] Alarcon's Name Patient's Relationship to Policy Alarcon [facility] ([facility]) MEDICARE SUPPLEMEN [facility] June 12, 2013 PLANF [id number] JUANI HENDRIX PATIENT [facility] MEDICARE SUPPLEMEN [facility] Apr 12, 2012 MEDICAR E SUPPLEM E [id number] JUANI HENDRIX PATIENT MEDICARE (WNR) MEDICARE (M) PART B Feb 13, 2012 PART B [id number] JUANI HENDRIX PATIENT MEDICARE (WNR) MEDICARE (M) PART B Feb 13, 2012 PART B [id number] JUANI HENDRIX PATIENT MEDICARE (WNR) MEDICARE (M) PART B Feb 13, 2012 PART B [id number] JUANI HENDRIX PATIENT MEDICARE (WNR) MEDICARE (M) PART B Feb 13, 2012 PART B [id number] JUANI HENDRIX PATIENT MEDICARE (WNR) MEDICARE (M) PART A May 14, 2011 PART A [id number] JUANI HENDRIX PATIENT MEDICARE (WNR) MEDICARE (M) PART A May 14, 2011 PART A [id number] JUANI HENDRIX PATIENT MEDICARE (WNR) MEDICARE (M) PART A May 14, 2011 PART A [id number] JUANI HENDRIX PATIENT MEDICARE (WNR) MEDICARE (M) PART A May 14, 2011 PART A [id number] JUANI HENDRIX PATIENT MEDICARE PART D (WNR) PRESCRIPT ION PART D Feb 12, 2021 PART D [id number] JUANI HENDRIX PATIENT Selected Encounter This section includes the information on record at [place] for the Encounter. Date/Time Encounter Type Encounter Description Reason Pro vider Source July 04, 2023 11:33 AM Outpatient Encounter PRIMARY CARE/MEDICINE IHE Encounter Template Text not used by DC Plan of Treatment: Future Appointments (+ 6 months) and Future Tests (+/- 45 days) The Plan of Treatment section includes future care activities for the patient from all [place] treatmentfacilities. This section includes future appointments and future orders which are active, pending or scheduled. Future Appointments This section includes appointments that were scheduled to occur 6 months from the date of the Encounter, up to a maximum of 20 appointments. The data comes from all [place] treatment facilities. Appointment Date/Time Appointment Type Appointme nt Facility Name Oct 08, 2023 10:00 AM AMBULATORY - MEDICINE [place] [facility] [place] [facility] Oct 25, 2023 09:30 AM AMBULATORY - PSYCHIATRY [place] [facility] [place] [facility] Oct 30, 2023 03:30 PM AMBULATORY - MEDICINE [place] [facility] [place] [facility] Oct 30, 2023 04:15 PM AMBULATORY - MEDICINE [place] [facility] [place] [facility] Nov 05, 2023 03:00 PM AMBULATORY - MEDICINE [place] [facility] [place] [facility] Nov 21, 2023 03:30 PM AMBULATORY - MEDICINE [facility] Dec 27, 2023 11:00 AM AMBULATORY - PSYCHIATRY [facility] Jan 01, 2024 12:30 PM AMBULATORY - MEDICINE [facility] Radiology Reports: +/- 30 days of the encounter Radiology Reports For cases when an order for radiology services may have been completed prior to the date of the Encounter, the report list includes the Radiology Reports that were completed up to 30 days before dateof the Encounter. For cases when an order for radiology services may have been completed after the date of the Encounter, the report list also includes the Radiology Reports that were completed up to30 days after date of the Encounter. The data comes from all [place] treatment facilities. Date/Time Radiology Report Provider Source June 29, 2023 12:11 PM MRI BRAIN W/O: JUANI HENDRIX ASYA [id number] -[id number] M Exm Date: JUNE 29, 2023@12:11 Req Phys: IOANA WHEELER Loc: [facility] C NEURO ATT 02 NEW (Req' Img Loc: MRI [place] Service: [place] [address] (Case [id number] COMPLETE) MRI BRAIN W/O (MRI Detailed) CPT:32315 Reason for Study: memory loss, tremor Clinical History: Incomplete/Missing MRI questionnaires will result in cancellation of order Contrast request MUST have eGFR value completed within prior 30 days. CLINICAL REASON FOR THE MRI: memory loss, tremor Patient Weight: Answering Yes for any of the following will require further investigation and MAY prohibit MRI exam Is patient .......................... ..No Cardiac pacemaker,defibrillator or residual leads............................. .............No Any retained foreign bodies ...................No anywhere in their body (metallic fragments, schrapnel within the orbit or eye)? Any NEUROLOGIC implanted or ...................No retained medical devices? (cochlear implant, spinal stimulator, aneurysm brain clip, vagal stimulator) Any CARDIOVASCULAR implanted ..................No or retained medical devices? (heart valves, IVC filter) Allergic reaction to MRI IV contrast or dye ...No Is the patient claustrophobic..................No eGFR No data available (Must be within 30 days.) PHYSICIANS MUST ANSWER the following per [facility] mandate: Does the patient have ESRD? ...................No Prior kidney or liver transplant? .............No I verify that none of the exclusion criteria apply to this patient. Report Status: Verified Date Reported: JUNE 29, 2023 Date Verified: JUNE 29, 2023 Movie Actor E-Sig:/ES/JOVANNI PORRAS M.D. Report: Study: MRI brain without contrast. Indication: Memory loss, tremor. Comparison: No prior. Technique: DWI, sagittal and axial T1, axial T2, axial FLAIR, axial SWI, coronal T2. Findings: There is no abnormal restricted diffusion. No hemorrhage, hydrocephalus, midline shift, or extra-axial collection. There is diffuse volume loss with scattered and patchy foci of T2 and FLAIR hyperintensity in the periventricular and subcortical white matter as well as the grover. No abnormal hemosiderin deposition. Prominent retrocerebellar CSF space is noted. There is no downward herniation of the cerebellar tonsils. No sellar or suprasellar mass. Expected arterial flow voids are present. There is mild mucosal thickening in the maxillary sinuses, right greater than left, and ethmoid air cells. There is moderate mucosal thickening along the lateral wall of the right sphenoid sinus. Trace fluid signal material is seen in the mastoid air cells. No significant calvarial or scalp lesion is identified. Frontal scalp lipoma is present. Globes and orbital contents appear within normal limits. Focus of susceptibility is seen in the right frontal scalp on image 41 of series 35. Impression: 1. No acute infarct. 2. Volume loss and mild to moderate white matter disease. 3. Paranasal sinus disease. Primary Diagnostic Code: NO ALERT REQUIRED Primary Interpreting Staff: JOVANNI PORRAS M.D., RADIOLOGIST (Movie Actor) /JOVANNI GARRETT [facility] Encounter Notes: All associated encounter notes This section contains the clinical notes associated to the Encounter. Date/Time Encounter Note(s) Provider Source July 04, 2023 11:33 AM ADMINISTRATIVE NOT E: LOCAL TITLE: ADMINISTRATIVE NOTE STANDARD TITLE: ADMINISTRATIVE NOTE DATE OF NOTE: JULY 04, 2023@11:33 ENTRY DATE: JULY 04, 2023@11:33:43 AUTHOR: FLORENCIO SIU EXP COSIGNER: URGENCY: STATUS: COMPLETED PATIENT CAME TO CLINIC FOR COPY OF HIS MRI REPORT PRINTED THE LETTER THAT WAS IN THE CHART, HAD HIM SIGN CIERA TO GET THE DISC MAILED TO [facility] FAXED CIERA TO [place] RECEIVED CONFIRMATION, GAVE COPY TO PATIENT WELL /es/ FLORENCIO SIU ADVANCED INTERACTIVE MEDIA MARKETING STRATEGIST Signed: 07/04/2023 11:35 FLORENCIO SIU [facility]
--- OUTSIDE RECORDS SUMMARY | 2024-01-30 09:24 | XMS_ITS | Encounter Summary ---
Author Name Department [place] Organization [place] Address [address] [place] [address] Care Team Providers Care Platform Operations Director Name Role Phone RALPH HESTER Primary [facility] Provider [facility] Insurance Providers: All historical and current [...] Alarcon's Name Patient's Relationship to Policy Alarcon [facility], 2013 PLANF [id number] JUANI HENDRIX PATIENT [facility] 12[facility] 2012 MEDICAR E SUPPLEM E [id number] JUANI HENDRIX PATIENT MEDICARE (WNR) MEDICARE () PART B Feb 13, 2012 PART B [id number] JUANI HENDRIX PATIENT MEDICARE (WNR) MEDICARE (M) PART B Feb 13, 2012 PART B [id number] JUANI HENDRIX PATIENT MEDICARE (WNR) MEDICARE (M) PART B Feb 13, 2012 PART B [id number] JUANI HENDRIX PATIENT MEDICARE (WNR) MEDICARE (M) PART B Feb 13, 2012 PART B [id number] JUANI HENDRIX PATIENT MEDICARE (WNR) MEDICARE (M) PART A May 14, 2011 PART A [id number] JUANI HENDRIX PATIENT MEDICARE (WNR) MEDICARE (M) PART A May 14, 2011 PART A [id number] JUANI HENDRIX PATIENT MEDICARE (WNR) MEDICARE (M) PART A May 14, 2011 PART A [id number] JUANI HENDRIX PATIENT MEDICARE (WNR) MEDICARE (M) PART A May 14, 2011 PART A [id number] JUANI HENDRIX PATIENT MEDICARE PART D (WNR) PRESCRIPT ION PART D Feb 12, 2021 PART D [id number] JUANI HENDRIX PATIENT Selected Encounter This section includes the information on record at [place] for the Encounter. Date/Time Encounter Type Encounter Description Reason Provider Source Oct 30, 2023 04:15 PM CPTR OPHTH DX IMG POST SEGMT OPTOMETRY ICD-10-CM 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, bilateral, early dry stage YARON MEEK Mirella Encounter Template Text not used by [place] Assessments - Encounter Diagnoses This section includes the primary and secondary diagnoses documented for the Encounter. Date/Time Primary/Secondary Diagnosis Diagnosis Name Provider Source Nov 16, 2023 09:50 AM PRIMARY Nexdtve age-related mclr degn, bilateral, early dry stage [facility]ON MEEK [facility] [place] [facility] Plan of Treatment: Future Appointments (+ 6 months) and Future Tests (+/- 45 days) The Plan of Treatment section includes future care activities for the patient from all [place] treatmentfacilities. This section includes future appointments and future orders which are active, pending or scheduled. Future Appointments This section includes appointments that were scheduled to occur 6 months from the date of the Encounter, up to a maximum of 20 appointments. The data comes from all [place] treatment facilities. Appointment Date/Time Appointment Type Appointme nt Facility Name Nov 05, 2023 03:00 PM AMBULATORY - MEDICINE [facility] [place] [facility] Nov 21, 2023 03:30 PM AMBULATORY - MEDICINE [place] C [facility] [place] [facility] Dec 27, 2023 11:00 AM AMBULATORY - PSYCHIATRY [place] [facility] [place] [facility] Jan 01, 2024 12:30 PM AMBULATORY - MEDICINE [place] [facility] [place] [facility] Mar 27, 2024 09:30 AM [facility] Social History: Smoking Status (Most current) and Tobacco Use (All prior to encounter date) This section includes the most current, and the historical, smoking and tobacco- related health factors from the [place] facility where the Encounter took place. Current Smoking Status This section includes the most current smoking, or tobacco-related health factor, from the [place] facility where the Encounter took place. Date/Time Current Smoking Status Comment Facil ity Oct 12, 2022 03:30 PM VA[facility]TOBACCO [facility] Tobacco Use History This section includes a history of the smoking, or tobacco-related health factors, that were collected on or before the date of the Encounter. The data comes from the [place] facility where the Encounter took place. Date/Time Smoking Status/Tobacco Use Comment F acility Mar 03, 2021 08:49 AM VA-TOBACCO NEVER USED [place] [facility] [place] [facility] Jul 30, 2019 09:13 AM VA-TOBACCO FORMER USER [place] [facility] [place] [facility] Jul 30, 2019 09:13 AM VA-TOBACCO QUIT 15 YRS OR MORE SD [facility] [place] [facility] Mar 20, 2018 12:10 PM VA-TOBACCO NEVER USED [facility] [place] [facility] Dec 14, 2016 11:39 AM LIFETIME NON-TOBACCO USER [facility] [place] [facility] Dec 14, 2014 10:59 AM LIFETIME NON-TOBACCO USER [place] [facility] [place] [facility] Encounter Notes: All associated encounter notes This section contains the clinical notes associated to the Encounter. Date/Time Encounter Note(s) Provider Source Oct 30, 2023 04:20 PM OPTOMETRY CONSULT: LOCAL TITLE: CONSULT REPORT/OPTOMETRY OCT STANDARD TITLE: OPTOMETRY CONSULT DATE OF NOTE: OCT 30, 2023@16:20 ENTRY DATE: OCT 31, 2023@09:21:53 AUTHOR: NOLAN MEEK EXP COSIGNER: URGENCY: STATUS: COMPLETED Review macular OCT of patient with history of bilateral early stage nonexudative macular degeneration currently taking non VA ocular supplement macular degeneration. Mild RPE mottling each eye without evidence of subretinal fluid, subretinal blood, exudate or thickening either eye. Bilateral early stage nonexudative macular degeneration. AREDS 2 1 capsule twice a day by mouth ordered now for patient. /nicolasa/ Nolan Meek OD CHIEF OF OPTOMETRY Signed: 10/31/2023 09:23 [facility] MEEK [facility]
--- OUTSIDE RECORDS SUMMARY | 2024-01-30 09:26 | XMS_ITS | Encounter Summary ---
Author Name [place] Address [address] [place] [id number] Care Team Providers Care Car Shakeout Operator Name Role Phone RALPH HESTER Primary Care Provider [facility] Insurance Providers: All historical and current [...] Alarcon's Name Patient's Relationship to Policy Alarcon [facility]) MEDICARE SUPPLEMEN [facility] June 12, 2013 PLANF [id number] JUANI HENDRIX PATIENT [facility] MEDICARE SUPPLEMEN [facility] Apr 12, 2012 MEDICAR E SUPPLEM E [id number] JUANI HENDRIX PATIENT MEDICARE (WNR) MEDICARE (M) PART B Feb 13, 2012 PART B [id number] JUANI HENDRIX PATIENT MEDICARE (WNR) MEDICARE (M) PART B Feb 13, 2012 PART B [id number] JUANI HENDRIX PATIENT MEDICARE (WNR) MEDICARE (M) PART B Feb 13, 2012 PART B [id number] JUANI HENDRIX PATIENT MEDICARE (WNR) MEDICARE (M) PART B Feb 13, 2012 PART B [id number] JUANI HENDRIX PATIENT MEDICARE (WNR) MEDICARE (M) PART A May 14, 2011 PART A [id number] JUANI HENDRIX PATIENT MEDICARE (WNR) MEDICARE (M) PART A May 14, 2011 PART A [id number] JUANI HENDRIX PATIENT MEDICARE (WNR) MEDICARE (M) PART A May 14, 2011 PART A [id number] JUANI HENDRIX PATIENT MEDICARE (WNR) MEDICARE (M) PART A May 14, 2011 PART A [id number] JUANI HENDRIX PATIENT MEDICARE PART D (WNR) PRESCRIPT ION PART D Feb 12, 2021 PART D [id number] JUANI HENDRIX PATIENT Selected Encounter This section includes the information on record at [place] for the Encounter. Date/Time Encounter Type Encounter Description Reason Pro vider Source Nov 21, 2023 07:24 PM Outpatient Encounter ADMIN PAT ACTIVTIES (MASNONCT) IHE Encounter Template Text not used by [place] Plan of Treatment: Future Appointments (+ 6 months) and Future Tests (+/- 45 days) The Plan of Treatment section includes future care activities for the patient from all [place] treatmentfacilities. This section includes future appointments and future orders which are active, pending or scheduled. Future Appointments This section includes appointments that were scheduled to occur 6 months from the date of the Encounter, up to a maximum of 20 appointments. The data comes from all [place] treatment facilities. Appointment Date/Time Appointment Type Appointme nt Facility Name Dec 27, 2023 11:00 AM [facility] [place] [facility] [place] [facility] Jan 01, 2024 12:30 PM AMBULATORY - MEDICINE [facility] [place] [facility] Mar 27, 2024 09:30 AM [facility] [place] [facility] [place] [facility] Vital Signs: All taken on the encounter date This section contains inpatient and outpatient Vital Signs collected on the date of the Encounter. Date/Time Temperature Pulse Blood Pressure Respiratory Rate SP02 Pain Height Weight Body Mass Index Source Nov 21, 2023 03:26 PM 98.4 68 123/79 16 97 1 150 23 [place] [facility] [place] [facility] Social History: Smoking Status (Most current) and Tobacco Use (All prior to encounter date) This section includes the most current, and the historical, smoking and tobacco- related health factors from the [place] facility where the Encounter took place. Current Smoking Status This section includes the most current smoking, or tobacco-related health factor, from the [place] facility where the Encounter took place. Date/Time Current Smoking Status Comment Olaf blackwood Nov 21, 2023 03:30 PM VA-TOBACCO [facility] USED [facility] Tobacco Use History This section includes a history of the smoking, or tobacco-related health factors, that were collected on or before the date of the Encounter. The data comes from the [place] facility where the Encounter took place. Date/Time Smoking Status/Tobacco Use Comment F acsherwin Oct 12, 2022 03:30 PM VA-TOBACCO NEVER USED [place] [facility] [place] [facility] Mar 03, 2021 08:49 AM VA-TOBACCO NEVER USED [place] [facility] [place] [facility] Jul 30, 2019 09:13 AM VA-TOBACCO FORMER USER [place] [facility] [facility] Jul 30, 2019 09:13 AM VA-TOBACCO QUIT 15 YRS OR MORE [place] [facility] [place] [facility] Mar 20, 2018 12:10 PM VA-TOBACCO NEVER USED [place] [facility] [place] [facility] Dec 14, 2016 11:39 AM LIFETIME NON-TOBACCO USER [place] [facility] [place] [facility] Dec 14, 2014 10:59 AM LIFETIME NON-TOBACCO USER [place] [facility] [place] [facility] Encounter Notes: All associated encounter notes This section contains the clinical notes associated to the Encounter. Date/Time Encounter Note(s) Provider Source Nov 21, 2023 07:24 PM PHARMACY NOTE: LOCAL TITLE: V1 PHARMACY CUSTOMER CARE MEDICATION RENEWAL STANDARD TITLE: PHARMACY NOTE DATE OF NOTE: NOV 21, 2023@19:24 ENTRY DATE: NOV 21, 2023@19:24:17 AUTHOR: PETR SEGAL COSIGNER: URGENCY: STATUS: COMPLETED Date: Nov Division: [facility] referred by Pharmacy Call Center for medication renewal: Non-controlled/maintenanc e medication Medications requested: [id number] SERTRALINE HCL 50MG TAB Defer to specialty clinic To be mailed . Please review and renew if appropriate. *This note was generated by [facility] Pharm[facility] Customer Care. If you have any questions or need assistance, do not contact this author. Please refer all questions to your local, on-site pharmacy departments. /nicolasa/ PETR SEGAL CPhT MANAGER FIN[employer]CIAL SERVICES, [place]/PHARMACY CUSTOMER CARE Signed: 11/21/2023 19:24 Receipt Acknowledged By: 11/22/2023 12:12 /nicolasa/ ADRIAN KOHLER PSYCHIATRIST PETR SEGAL [place] [facility]
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
--- OUTSIDE RECORDS SUMMARY | 2024-01-30 09:26 | XMS_ITS | Encounter Summary ---
Author Name Department of Vetera Affairs (MD) Organization Department of Vetera Affairs ([place]) Address [address] [place] [id number] Care Team Providers Care Cemetery Warden Name Role Phone RALPH HESTER Primary Care [...] Alarcon's Name Patient's Relationship to Policy Alarcon [facility] ([facility]) MEDICARE SUPPLEMEN [facility] June 12, 2013 PLANF [id number] [phone] JUANI HENDRIX PATIENT [facility] MEDICARE [facility] [place] Apr 12, 2012 MEDICAR E SUPPLEM E [id number] JUANI HENDRIX PATIENT MEDICARE (WNR) MEDICARE (M) PART B Feb 13, 2012 PART B [id number] JUANI HENDRIX PATIENT MEDICARE (WNR) MEDICARE (M) PART B Feb 13, 2012 PART B [id number] JUANI HENDRIX PATIENT MEDICARE (WNR) MEDICARE (M) PART B Feb 13, 2012 PART B [id number] JUANI HENDRIX PATIENT MEDICARE (WNR) MEDICARE (M) PART B Feb 13, 2012 PART B [id number] JUANI HENDRIX PATIENT MEDICARE (WNR) MEDICARE (M) PART A May 14, 2011 PART A [id number] JUANI HENDRIX PATIENT MEDICARE (WNR) MEDICARE (M) PART A May 14, 2011 PART A [id number] JUANI HENDRIX PATIENT MEDICARE (WNR) MEDICARE (M) PART A May 14, 2011 PART A [id number] JUANI HENDRIX PATIENT MEDICARE (WNR) MEDICARE (M) PART A May 14, 2011 PART A [id number] JUANI HENDRIX PATIENT MEDICARE PART D (WNR) PRESCRIPT ION PART D Feb 12, 2021 PART D [id number] JUANI HENDRIX PATIENT Selected Encounter This section includes the information on record at MD for the Encounter. Date/Time Encounter Type Encounter Description Reason Provider Source Oct 25, 2023 09:30 AM OFFICE O/P EST MOD 30 [facility] - IND ICD-10-CM F41.1 Generalized anxiety disorder IGNACIA KOHLER [facility] Encounter Template Text not used by MD Assessments - Encounter Diagnoses This section includes the primary and secondary diagnoses documented for the Encounter. Date/Time Primary/Secondary Diagnosis Diagnosis Name Provider Source Nov 20, 2023 03:52 PM PRIMARY Generalized anxiety disorder IGNACIA KOHLRE [facility] Plan of Treatment: Future Appointments (+ 6 months) and Future Tests (+/- 45 days) The Plan of Treatment section includes future care activities for the patient from all MD treatmentfacilities. This section includes future appointments and future orders which are active, pending or scheduled. Future Appointments This section includes appointments that were scheduled to occur 6 months from the date of the Encounter, up to a maximum of 20 appointments. The data comes from all MD treatment facilities. Appointment Date/Time Appointment Type Appointme nt Facility Name Oct 30, 2023 03:30 PM [facility] Oct 30, 2023 04:15 PM AMBULATORY [facility] MEDICINE [facility] [place] [facility] Nov 05, 2023 03:00 PM AMBULATORY - MEDICINE [place] [facility] [place] [facility] Nov 21, 2023 03:30 PM AMBULATORY - MEDICINE MD [facility] [place] [facility] Dec 27, 2023 11:00 AM AMBULATORY - PSYCHIATRY [facility] [place] [facility] Jan 01, 2024 12:30 PM AMBULATORY - MEDICINE MD [facility] [facility] Mar 27, 2024 09:30 AM AMBULATORY - [facility]RY [facility] Social History: Smoking Status (Most current) and Tobacco Use (All prior to encounter date) This section includes the most current, and the historical, smoking and tobacco- related health factors from the MD facility where the Encounter took place. Current Smoking Status This section includes the most current smoking, or tobacco-related health factor, from the MD facility where the Encounter took place. Date/Time Current Smoking Status Comment Olaf ity Oct 12, 2022 03:30 PM VA[facility]TOBACCO [facility] Tobacco Use History This section includes a history of the smoking, or tobacco-related health factors, that were collected on or before the date of the Encounter. The data comes from the MD facility where the Encounter took place. Date/Time Smoking Status/Tobacco Use Comment F acility Mar 03, 2021 08:49 AM VA-TOBACCO NEVER USED [place] [facility] [place] [facility] Jul 30, 2019 09:13 AM VA-TOBACCO FORMER USER [place] [facility] [facility] Jul 30, 2019 09:13 AM VA-TOBACCO QUIT 15 YRS OR MORE [place] [facility] [place] [facility] Mar 20, 2018 12:10 PM VA-TOBACCO NEVER USED [place] [facility] [place] [facility] Dec 14, 2016 11:39 AM LIFETIME NON-TOBACCO USER [place] [facility] [facility] Dec 14, 2014 10:59 AM LIFETIME NON-TOBACCO USER [place] [facility] [place] [facility]
--- OUTSIDE RECORDS SUMMARY | 2024-01-30 09:26 | XMS_ITS | Encounter Summary ---
Author Name Department of [place] Organization Department of [place] Address [address] [place] [address] Care Team Providers Care Drag Seiner Name Role Phone RALPH HESTER [facility] Insurance Providers: All historical [...] Alarcon's Name Patient's Relationship to Policy Alarcon [facility] ([facility]) MEDICARE SUPPLEMEN [facility] June 12, 2013 PLANF [id number] JUANI HENDRIX PATIENT [facility] MEDICARE SUPPLEMEN [facility] Apr 12, 2012 MEDICAR E SUPPLEM E [id number] JUANI HENDRIX PATIENT MEDICARE (WNR) MEDICARE (M) PART B Feb 13, 2012 PART B [id number] AC00 [id number] JUANI HENDRIX PATIENT MEDICARE (WNR) MEDICARE (M) PART B Feb 13, 2012 PART B [id number] JUANI HENDRIX PATIENT MEDICARE (WNR) MEDICARE (M) PART B Feb 13, 2012 PART B [id number] JUANI HENDRIX PATIENT MEDICARE (WNR) MEDICARE (M) PART B Feb 13, 2012 PART B [id number] JUANI HENDRIX PATIENT MEDICARE (WNR) MEDICARE (M) PART A May 14, 2011 PART A [id number] JUANI HENDRIX PATIENT MEDICARE (WNR) MEDICARE (M) PART A May 14, 2011 PART A [id number] JUANI HENDRIX PATIENT MEDICARE (WNR) MEDICARE (M) PART A May 14, 2011 PART A [id number] JUANI HENDRIX PATIENT MEDICARE (WNR) MEDICARE (M) PART A May 14, 2011 PART A [id number] [phone] [id number] JUANI HENDRIX PATIENT MEDICARE PART D (WNR) PRESCRIPT ION PART D Feb 12, 2021 PART D [id number] [id number] JUANI HENDRIX PATIENT Selected Encounter This section includes the information on record at [place] for the Encounter. Date/Time Encounter Type Encounter Description Reason Pro vider Source Nov 05, 2023 03:00 PM Outpatient Encounter PRIMARY CARE/MEDICINE IHE Encounter Template Text not used by [place] Plan of Treatment: Future Appointments (+ 6 months) and Future Tests (+/- 45 days) The Plan of Treatment section includes future care activities for the patient from all [place] [facility]. This section includes future appointments and future orders which are active, pending or scheduled. Future Appointments This section includes appointments that were scheduled to occur 6 months from the date of the Encounter, up to a maximum of 20 appointments. The data comes from all [place] treatment facilities. Appointment Date/Time Appointment Type Appointme nt Facility Name Nov 21, 2023 03:30 PM AMBUL[facility] - [facility] Dec 27, 2023 11:00 AM [facility] Jan 01, 2024 12:30 PM AMBULATORY - MEDIC[facility] Mar 27, 2024 09:30 AM [facility] Social History: Smoking Status (Most current) and Tobacco Use (All prior to encounter date) This section includes the most current, and the historical, smoking and tobacco- related health factors from the [place] facility where the Encounter took place. Current Smoking Status This section includes the most current smoking, or tobacco-related health factor, from the [place] facility where the Encounter took place. Date/Time Current Smoking Status Comment Olaf durany Oct 12, 2022 03:30 PM [facility]TOBACCO [facility] Tobacco Use History This section includes a history of the smoking, or tobacco-related health factors, that were collected on or before the date of the Encounter. The data comes from the [place] facility where the Encounter took place. Date/Time Smoking Status/Tobacco Use Comment F acility Mar 03, 2021 08:49 AM VA-TOBACCO NEVER USED [place] [facility] [place] [facility] Jul 30, 2019 09:13 AM VA-TOBACCO FORMER USER [place] [facility] [place] [facility] Jul 30, 2019 09:13 AM VA-TOBACCO QUIT 15 YRS OR MORE [place] [facility] [place] [facility] Mar 20, 2018 12:10 PM VA-TOBACCO NEVER USED [place] [facility] [place] [facility] Dec 14, 2016 11:39 AM LIFETIME NON-TOBACCO USER [place] [facility] [place] [facility] Dec 14, 2014 10:59 AM LIFETIME NON-TOBACCO USER [place] [facility] [place] [facility] Encounter Notes: All associated encounter notes This section contains the clinical notes associated to the Encounter. Date/Time Encounter Note(s) Provider Source Nov 05, 2023 03:27 PM CLERICAL NOTE: LOCAL TITLE: APPOINTMENT NO SHOW STANDARD TITLE: CLERICAL NOTE DATE OF NOTE: NOV 05, 2023@15:27 ENTRY DATE: NOV 05, 2023@15:27:33 AUTHOR: GILBERTO LOVE EXP COSIGNER: URGENCY: STATUS: COMPLETED Patient Name: JUANI HENDRIX III Patient SSN: [id number] Date and time of Appointment No show : 11/05/23 15:00 PATIENT PHONE - PHONE NUMBER [CELLULAR] - Patient's medical record was reviewed. Follow-up actions were determined and initiated: Please check/complete as applies: [X]Telephoned Directly [X]Re-scheduled for next available appt [ ]Sent a N0-show letter ( must call for appointment) [ ]Other (Emergent/Overbook, etc.): Additional Comments: r/s for 11/20 at 3:30pm. 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 [place] can only come in on the above/date/time. Future Clinic Visits 11/21/2023 15:30 CWM/NO/PACT 7 12/27/2023 11:00 CWM/NO/MHC/JOSE F 1 01/01/2024 12:30 NHM/OPTOMETRY/FANTASMA /nicolasa/ GILBERTO LOVE AMSA Signed: 11/05/2023 15:28 GILBERTO LOVE [facility]L [facility]
--- OUTSIDE RECORDS SUMMARY | 2024-01-30 09:27 | XMS_ITS | Encounter Summary ---
Author Name [place] Address [address] [place] [id number] Care Team Providers Care Supply Technician Name Role Phone RALPH HESTER Primary Care Provider [facility] Insurance Providers: All historical and [...] Name Patient's Relationship to Policy Alarcon [facility] MEDICARE SUPPLEMEN [facility] June 12, 2013 PLANF [id number] JUANI HENDRIX PATIENT [facility] Apr 12, 2012 MEDICAR E SUPPLEM E [id number] JUANI HENDRIX PATIENT MEDICARE (WNR) MEDICARE (M) PART B Feb 13, 2012 PART B [id number] [id number] JUANI HENDRIX PATIENT MEDICARE (WNR) MEDICARE (M) PART B Feb 13, 2012 PART B [id number] JUANI HENDRIX PATIENT MEDICARE (WNR) MEDICARE (M) PART B Feb 13, 2012 PART B [id number] JUANI HENDRIX PATIENT MEDICARE (WNR) MEDICARE (M) PART B Feb 13, 2012 PART B [id number] JUANI HENDRIX PATIENT MEDICARE (WNR) MEDICARE (M) PART A May 14, 2011 PART A [id number] JUANI HENDRIX PATIENT MEDICARE (WNR) MEDICARE (M) PART A May 14, 2011 PART A [id number] JUANI HENDRIX PATIENT MEDICARE (WNR) MEDICARE (M) PART A May 14, 2011 PART A [id number] JUANI HENDRIX PATIENT MEDICARE (WNR) MEDICARE (M) PART A May 14, 2011 PART A [id number] [id number] [id number] JUANI HENDRIX PATIENT MEDICARE PART D (WNR) PRESCRIPT ION PART D Feb 12, 2021 PART D [id number] JUANI HENDRIX PATIENT Selected Encounter This section includes the information on record at [place] for the Encounter. Date/Time Encounter Type Encounter Description Reason Provider Source Dec 27, 2023 11:00 AM OFFICE O/P EST HI 40 MIN [facility] - IND ICD-10-CM F41.1 Generalized anxiety disorder IGNACIA KOHLER [facility] Encounter Template Text not used by [place] Assessments - Encounter Diagnoses This section includes the primary and secondary diagnoses documented for the Encounter. Date/Time Primary/Secondary Diagnosis Diagnosis Name Provider Source Dec 27, 2023 05:02 PM PRIMARY Generalized anxiety disorder [facility]CIA KOH[facility] [facility] Dec 27, 2023 05:02 PM SECONDARY Insomnia, unspecified IGNACIA KOHLER [facility] [place] [facility] Plan of Treatment: Future Appointments (+ 6 [...] Date/Time Appointment Type Appointme nt Facility Name Jan 01, 2024 12:30 PM AMBULATORY - MEDICINE [facility] NTRL TRN [facility] Mar 27, 2024 09:30 AM [facility] Active, Pending, and Scheduled Orders This section includes a listing of several types of active, pending, and scheduled orders, including clinic medications orders, diagnostic test orders, procedure orders and consult orders; where the start date of the order is 45 days before the date of the Encounter or 45 days after the date of theEncounter. The data comes from all [place] treatment facilities. Test Date/Time Test Type Test Details Facility Name Jan 18, 2024 12:00 AM Laboratory - Chemi stry Order BASIC METABOLIC PANEL (non-fasting) BLOOD ([facility]UM[facility] Jan 18, 2024 12:00 AM Laboratory - Chemi stry Order LIPID PANEL, NON FASTING BLOOD (SST[facility]SERUM) [facility] Jan 18, 2024 12:00 AM Laboratory - Chemi stry Order LIVER FUNCTION BLOOD (SST-SERUM) [facility] Jan 18, 2024 12:00 AM Laboratory - Chemi stry Order CBC BLOOD (LAV-BLOOD) [facility] Social History: Smoking Status (Most current) [...] Date/Time Current Smoking Status Comment Facil ity Nov 21, 2023 03:30 PM VA-TOBACCO NEVER USED [facility] Tobacco Use History This section includes a history of the smoking, or tobacco-related health factors, that were collected on or before the date of the Encounter. The data comes from the [place] facility where the Encounter took place. Date/Time Smoking Status/Tobacco Use Comment F acility Oct 12, 2022 03:30 PM VA-TOBACCO NEVER USED [facility] Mar 03, 2021 08:49 AM VA-TOBACCO NEVER USED [place] [facility] [place] [facility] Jul 30, 2019 09:13 AM VA-TOBACCO FORMER USER [place] [facility] Jul 30, 2019 09:13 AM VA-TOBACCO QUIT 15 YRS OR MORE [place] [facility] [place] [facility] Mar 20, 2018 12:10 PM [facility]TOBACCO [facility] Dec 14, 2016 11:39 AM LIFETIME NON-TOBACCO [facility] Dec 14, 2014 10:59 AM LIFETIME NON-TOBACCO USER [facility] Encounter Notes: All associated encounter notes This section contains the clinical notes associated to the Encounter. 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 Notes high stress, getting ready to move to [facility]. Feels it affects his memory and reports ongoing memory problems. Kicking in sleep a lot. Wants to defer a sleep study. Working with a functional medicine MD. They take Ivermectin, along with other supplements. They would like to avoid western meds in favor of supplements, and have cut back on propranolol to 20mg/10mg, and plan to taper off sertraline. They will be moving to [facility] in January and eventually will tx care to a [facility] there. CURRENT MEDICATIONS Active Outpatient Medications (including Supplies): CARBOXYMETHYLCELLULOSE NA 0.5% OPH SOLN INSTILL 1 DROP ACTIVE INTO EACH EYE THREE TIMES DAILY NEEDED FOR DRY EYE DEXAMETHASONE 0.1/TOBRAMYC 0.3% OPH OINT APPLY THIN RIBBON ACTIVE INTO EACH EYE AT BEDTIME FOR INFLAMMATION OF THE EYE EYELID CLEANSER,EYE SCRUB PAD USE 1 PAD TOPICALLY ONCE ACTIVE DAILY BLEPHARITIS MELATONIN 5MG CAP/TAB TAKE TWO CAPSULE/TABLET BY MOUTH AT ACTIVE BEDTIME FOR INSOMNIA MULTIVIT/OPHTH AREDS2/LUTE/ZEAX CAP/TAB TAKE 1 CAPSULE BY ACTIVE MOUTH TWICE DAILY FOR VITAMIN SUPPLEMENTATION IN THE MORNING AND EVENING, WITH FOOD SERTRALINE HCL 50MG TAB TAKE ONE TABLET [...] 0.8MG BY MOUTH ONCE DAILY ACTIVE SUPPLEMENTS: Ivermectin, Corti-calm, GANGA ALLERGIES: CEFUROXIME, SILDENAFIL MEDICAL HISTORY Active Problem [...] recurrent sinusitis J32.8 12/14/2014 RALPH DOMINGUEZ BMI: 22.9 SUBSTANCE USE: Alcohol: 1-2 beers daily, some days none. MJ: Less frequent, not every night. Tobacco: None Caffeine: none Opiates: none Cocaine: none Other: PREVIOUS PSYCHIATRIC MEDICATION TRIALS AND RESPONSE Prazosin 1mg not helpful Zolpidem 2.5mg works for 3-4 hours. 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 Advised to consult with PCP. PLAN -vet plans to taper off propranolol, currently taking 30mg daily for anxiety. -plans to taper off sertraline--he has been given a taper schedule by outside MD. -can try Silexan (lavender oil) for SILVIA -preferred to continue zolpidem 5mg PRN insomnia -can use melatonin 10mg at bedtime (vet has his own) -coherent breathing videos for anxiety Pt was reminded to call [phone] option [...] provider. Problem List was reviewed and updated. /es/ ADRIAN KOHLER PSYCHIATRIST Signed: 12/27/2023 17:02 ADRIAN KOHLER CNTRL W[facility]
--- OUTSIDE RECORDS SUMMARY | 2024-01-30 09:27 | XMS_ITS ---
Author Name [facility] [place] [facility] [place] [facility] [place] Address [address] [place] [address] Care Team Providers Care Program Consultant Name Role Phone RALPH HESTER [facility] Insurance Providers: All historical and current Section Date Range: From patient's date of to the date document was created. This section includes the names of all active insurance providers for the patient. Insurance Provider Type of Coverage Plan Name Start of Policy Coverage End of Policy Coverage Group Number Member ID Insurance Provider's Telephone Number Policy Alarcon's Name Patient's Relationship to Policy Alarcon [facility] MEDICARE [facility]PP[facility]MEN [facility] June 12, 2013 PLANF [id number] JUANI HENDRIX PATIENT [facility] MEDICARE SUPPLEMEN [facility] Apr 12, 2012 MEDICAR E SUPPLEM E [id number] JUANI HENDRIX PATIENT MEDICARE (WNR) MEDICARE (M) PART B Feb 13, 2012 PART B [id number] JUANI HENDRIX PATIENT MEDICARE (WNR) MEDICARE (M) PART B Feb 13, 2012 PART B [id number] JUANI HENDRIX PATIENT MEDICARE (WNR) MEDICARE (M) PART B Feb 13, 2012 PART B [id number] JUANI HENDRIX PATIENT MEDICARE (WNR) MEDICARE (M) PART B Feb 13, 2012 PART B [id number] JUANI HENDRIX PATIENT MEDICARE (WNR) MEDICARE (M) PART A May 14, 2011 PART A [id number] JUANI HENDRIX PATIENT MEDICARE (WNR) MEDICARE (M) PART A May 14, 2011 PART A [id number] JUANI HENDRIX PATIENT MEDICARE (WNR) MEDICARE (M) PART A May 14, 2011 PART A [id number] JUANI HENDRIX PATIENT MEDICARE (WNR) MEDICARE (M) PART A May 14, 2011 PART A [id number] JUANI HENDRIX PATIENT MEDICARE PART D (WNR) PRESCRIPT ION PART D Feb 12, 2021 PART D [id number] JUANI HENDRIX PATIENT Selected Encounter This section includes the information on record at [place] for the Encounter. Date/Time Encounter Type Encounter Description Reason Provider Source Jan 01, 2024 12:30 PM INTRM OPH EXAM EST PATIENT OPTOMETRY ICD-10-CM L71.8 Other rosaYARON Christiansen Mirella Encounter Template Text not used by VA Assessments - Encounter Diagnoses This section includes the primary and secondary diagnoses documented for the Encounter. Date/Time Primary/Secondary Diagnosis Diagnosis Name Provider Source Jan 15, 2024 02:34 PM PRIMARY Other rosaceYARON Steinberg [place] [facility] [place] [facility] Jan 15, 2024 02:34 PM SECONDARY Age-related nuclear cataract, bilateral YARON MEEK [place] [facility] [place] [facility] Jan 15, 2024 02:34 PM SECONDARY Dry eye syndrome of bilateral lacrimal glands YARON MEEK [place] [facility] [place] [facility] Jan 15, 2024 02:34 PM SECONDARY Nexdtve age-related mclr degn, bilateral, early dry stage YARON MEEK [place] [facility] [place] [facility] Jan 15, 2024 02:34 PM SECONDARY Rosacea conjunctivitis, bilateral YARON MEEK [place] [facility] [place] [facility] Jan 15, 2024 02:34 PM SECONDARY Squamous blepharitis left upper eyelid YARON MEEK [facility] Jan 15, 2024 02:34 PM SECONDARY Squamous blepharitis right upper eyelid YARON MEEK [facility] Plan of Treatment: Future Appointments (+ 6 months) and Future Tests (+/- 45 days) The Plan of Treatment section includes future care activities for the patient from all [facility]. This section includes future appointments and future orders which are active, pending or scheduled. Future Appointments This section includes appointments that were scheduled to occur 6 months from the date of the Encounter, up to a maximum of 20 appointments. The data comes from all [facility]. Appointment Date/Time Appointment Type Appointme nt Facility Name Mar 27, 2024 09:30 AM AMBULATORY - PSYCHIATRY [facility] Active, Pending, and Scheduled Orders This section includes a listing of several types of active, pending, and scheduled orders, including clinic medications orders, diagnostic test orders, procedure orders and consult orders; where the start date of the order is 45 days before the date of the Encounter or 45 days after the date of theEncounter. The data comes from all [facility]. Test Date/Time Test Type Test Details Facility Name Jan 18, 2024 12:00 AM Laboratory - Chemi stry Order BASIC METABOLIC PANEL (non-fasting) BLOOD (SST-SERUM) [facility] Jan 18, 2024 12:00 AM Laboratory - Chemi stry Order LIPID PANEL, NON FASTING BLOOD (SST-SERUM) [facility] Jan 18, 2024 12:00 AM Laboratory - Chemi stry Order LIVER FUNCTION BLOOD (SST-SERUM) [facility] Jan 18, 2024 12:00 AM Laboratory - Chemi stry Order CBC BLOOD (LAV-BLOOD) [facility] Social History: Smoking Status (Most current) and Tobacco Use (All prior to encounter date) This section includes the most current, and the historical, smoking and tobacco- related health factors from the [place] facility where the Encounter took place. Current Smoking Status This section includes the most current smoking, or tobacco-related health factor, from the [place] facility where the Encounter took place. Date/Time Current Smoking Status Comment Facil ity Nov 21, 2023 03:30 PM VA-TOBACCO NEVER USED [place] [facility] [place] [facility] Tobacco Use History This section includes a history of the smoking, or tobacco-related health factors, that were collected on or before the date of the Encounter. The data comes from the [place] facility where the Encounter took place. Date/Time Smoking Status/Tobacco Use Comment F acility Oct 12, 2022 03:30 PM VA-TOBACCO NEVER USED [facility] [place] [facility] Mar 03, 2021 08:49 AM VA-TOBACCO NEVER USED [facility] [place] [facility] Jul 30, 2019 09:13 AM VA-TOBACCO FORMER USER [place] [facility] [place] [facility] Jul 30, 2019 09:13 AM VA-TOBACCO QUIT 15 YRS OR MORE [place] [facility] [place] [facility] Mar 20, 2018 12:10 PM VA-TOBACCO NEVER USED [place] [facility] [place] [facility] Dec 14, 2016 11:39 AM LIFETIME NON-TOBACCO USER [place] [facility] [place] [facility] Dec 14, 2014 10:59 AM LIFETIME NON-TOBACCO USER [place] [facility] [place] [facility] Encounter Notes: All associated encounter notes This section contains the clinical notes associated to the Encounter. Date/Time Encounter Note(s) Provider Source Jan 01, 2024 12:41 PM OPTOMETRY NOTE: LOCAL TITLE: OPTOMETRY NOTE STANDARD TITLE: OPTOMETRY NOTE DATE OF NOTE: JAN 01, 2024@12:41 ENTRY DATE: JAN 01, 2024@12:41:09 AUTHOR: NOLAN MEEK EXP COSIGNER: URGENCY: STATUS: COMPLETED Active problems - Computerized Problem List is the source for the followin. Generalized anxiety disorder 2. Erectile dysfunction 3. Tinnitus 4. Chronic insomnia 5. Anxiety disorder 6. Basal cell carcinoma of nose 7. Coronary arteriosclerosis 8. Benign prostatic hypertrophy 9. Chronic recurrent sinusitis Active Outpatient Medications (including Supplies): Active Outpatient Medications Status 1) CARBOXYMETHYLCELLULOSE [...] THE MORNING AND EVENING, WITH FOOD 6) PROPRANOLOL HCL 10MG TAB TAKE ONE TABLET BY MOUTH ACTIVE THREE TIMES A DAY 7) SERTRALINE HCL 50MG TAB TAKE ONE TABLET BY MOUTH ONCE ACTIVE DAILY ANXIETY 8) SILDENAFIL CITRATE 100MG TAB TAKE ONE TABLET BY MOUTH ACTIVE ONCE DAILY NEEDED TAKE 1 HOUR PRIOR TO SEXUAL ACTIVITY 9) ZOLPIDEM TARTRATE 10MG TAB TAKE ONE TABLET BY MOUTH ACTIVE AT BEDTIME NEEDED FOR SLEEP Active Non-VA Medications Status 1) Non-VA ASPIRIN 81MG EC TAB 81MG BY MOUTH ONCE DAILY ACTIVE 2) Non-VA FLUTICASONE PROP 50MCG 120D NASAL INHL 2 ACTIVE SPRAYS INTO EACH NOSTRIL ONCE DAILY 3) Non-VA OTHER CAP/TAB IVERMECTIN 12MG BY MOUTH ON ACTIVE SUNDAY 4) Non-VA TAMSULOSIN HCL 0.4MG CAP 0.8MG BY MOUTH ONCE ACTIVE DAILY 13 Total Medications Allergies: CEFUROXIME, SILDENAFIL All medications including those prescribed by outside VA's, community providers, and all OTC meds were reviewed and reconciled with patient to the best of their abilities. This 78 year old MALE is seen today for follow-up care. Medical, eye, personal, and social history are all reviewed and is contributory to today's visit for facial and ocular rosacea exacerbating dry eye disease as well as bilateral cataracts and bilateral early stage macular degeneration. He was last seen here on October 30, 2023 for and treated with the brief course of TobraDex ointment at bedtime for chronic bilateral blepharitis with recommendation for use of lid wipes daily along with use of Kanika mask daily, lubricating drops 3-4 times a day as well as AREDS 2 twice a day by mouth for macular degeneration. He returns today for reassessment of ocular symptoms and notes 80% improvement in symptoms of ocular discomfort, irritation and burning. He does not use the Kanika mask at this time and is using the lid wipes most days and lubricating drops 1-2 times a day. He would prefer preservative-free Systane over multiuse bottles of Refresh Tears. They are leaving shortly for [place] for the winter and plans to permanently relocate to [place] in the very near future. Chief Complaint: Overall eyes feel much better. Would prefer unit dose preservative-free Systane lubricating drops Vision: With 20/30+2 right eye 20/25-1 left eye Without Correction Pupils, EOMS, confrontation nicole are all done and shows round reactive pupils without afferent pupillary defect with full extraocular motility and full confrontation nicole to finger counting each eye Current Wear: OD: +2.00 -1.25 axis 090 OS: +1.00 +2.50 add Refraction: Defer OD: OS: Tonometry: 13 OD 12 OS Time: 12:40 PM PreTreatment IOP: OD OS Pachymetry: Rosacea facies with rhinophyma Anterior segment: Lids: Dermatochalasis with ptosis with trace blepharitis left greater than right upper lid and meibomian gland dysfunction all 4 lids Conj: Trace chronic injection each eye Cornea: Clear centrally without staining or pigment but reduced tear break-up time each eye AC:3 and quiet each eye Iris: Normal each eye Lens: 3+ nuclear sclerosis with anterior cortical changes each eye Vit: Clear each eye Fundus exam: Dilated: Non dilated:xxx C/D: Macula: A/V: Vessels: Periphery: Impression: Facial and ocular rosacea with chronic blepharitis right and left upper lid and mild bilateral dry eye disease overall improved with use of lid scrubs daily and lubricating drops twice a day. Patient discontinued use of Kanika mask after 2 times, he stated it made his eyes more red. There is no evidence of corneal staining seen on exam today but TBUT is reduced. Overall he is asymptomatic with regard to his ocular comfort and feels the crusting is significantly improved since his last visit. Nuclear sclerotic and cortical cataracts functioning well visually at present but with complaints regarding night driving. His [facility] in [place] did not recommend cataract surgery because of his macular degeneration. His [facility] and [place] recommended cataract surgery. Bilateral early stage nonexudative macular degeneration not assessed today. Continue AREDS 2 1 capsule twice a day by mouth. Plan: Reviewed exam findings now. Discontinue carboxymethylcellulose in order preservative free Systane per patient request Refill lid scrubs now for mail out Refill AREDS 2 now for mail out Keep follow-up in [place] for late April or early May 2024. They are permanently relocating to [place] and declined to schedule any follow- up here for now. Education: Macular Degeneration: Patient was educated regarding macular degeneration including both wet and dry varieties as well as the natural history and prognosis of this condition. Education included the role of amsler grid testing , ocular nutraceutical therapy as well as diet and healthy lifestyle choices when applicable. Exclusion criteria includes extremely reduced acuity or cognitive decline for amsler grid testing and other coexisting systemic contraindication for supplements, diet and exercise. Return to Clinic keep scheduled follow-up with [facility] in [place]. Ophthalmic medication reconciliation as noted above. Medication Reconciliation: Outpatient: Has the patient been taking medications as documented in the EMLR? YES: The patient has been taking medications as documented in the EMLR. Essential Medication List for Review used to complete this medication reconciliation. INCLUDED IN THIS LIST: Alphabetical list of active outpatient prescriptions dispensed from this VA (local) and dispensed from another [place] or DoD facility (remote) as well as inpatient orders (local, pending and active), local clinic medications, locally documented non-VA medications, and local prescriptions that have or been discontinued in the past 90 days. - All changes in medications, including all non-VA/Herbal/OTC medications were entered into CPRS. Changes: Systane unit dose lubricating drops - If there were any medications the patient should no longer take, they were discontinued. D/C'd meds: Multidose carboxymethylcellulose - The patient/caregiver was instructed to update this list, discard old lists, and take this list to the next appointment, whether with a VA or non-VA provider. JLV Link Data on this list may not be complete. Please check JLV. Allergies/ADRs (Tool #5) FACILITY ALLERGY/ADR -------- ERVIN PintoOctavia EFRAIN [facility] NO KNOWN ALLERGIES [facility] NO KNOWN ALLERGIES [facility] [place] [facility] CEFUROXIME [place] [facility] [place] [facility] SILDENAFIL Med Recon NoGlossary (Tool #1) INCLUDED IN THIS LIST: Alphabetical list of active outpatient prescriptions dispensed from this [place] (local) and dispensed from another [place] or [place] facility (remote) as well as [...] the patient into personal health records (i.e. [employer]) are NOT included in this list. Non-VA medications documented outside this [place], remote inpatient orders (regardless of status) and remote clinic medications are NOT included in this list. The patient and provider must always discuss medications the patient is taking, regardless of where the medication was dispensed or obtained. Non-VA ASPIRIN 81MG EC TAB TAKE ONE TABLET BY MOUTH ONCE DAILY Medication prescribed by Non-VA provider. OUTPT CARBOXYMETHYLCELLULOSE NA 0.5% OPH SOLN (Status = Discontinued) INSTILL 1 DROP INTO EACH EYE THREE TIMES DAILY NEEDED FOR DRY EYE Rx# [id number] Last Released: 05/25/23 Qty/Days Supply: 60/90 Rx Expiration Date: 10/18/23 Refills Remainin Indication: FOR DRY EYE OUTPT CARBOXYMETHYLCELLULOSE NA 0.5% OPH SOLN (Status = Discontinued) INSTILL 1 DROP INTO EACH EYE THREE TIMES DAILY NEEDED FOR DRY EYE Rx# [id number] Last Released: 11/03/23 Qty/Days Supply: 6090 Rx Expiration Date: 10/30/24 Refills Remainin Indication: FOR DRY EYE OUTPT DEXAMETHASONE 0.1/TOBRAMYC 0.3% OPH OINT (Status = Active) APPLY THIN RIBBON INTO EACH EYE AT BEDTIME FOR INFLAMMATION OF THE EYE Rx# [id number] Last Released: 11/01/23 Qty/Days Supply: 02/25 Rx Expiration Date: 10/30/24 Refills Remainin Indication: FOR INFLAMMATION OF THE EYE OUTPT EYELID CLEANSER,EYE SCRUB PAD (Status = Active/Suspended) USE 1 PAD TOPICALLY ONCE DAILY BLEPHARITIS Rx# [id number] Last Released: 11/03/23 Qty/Days Supply: 90/90 Rx Expiration Date: 10/30/24 Refills Remainin Indication: BLEPHARITIS Non-VA FLUTICASONE PROP 50MCG 120D NASAL INHL INSTILL 2 SPRAYS INTO EACH NOSTRIL ONCE DAILY OUTPT MELATONIN 5MG CAP/TAB (Status = Active) TAKE TWO CAPSULE/TABLET BY MOUTH AT BEDTIME FOR INSOMNIA Rx# [id number] Last Released: 10/30/23 Qty/Days Supply: 180/90 Rx Expiration Date: 01/23/24 Refills Remainin Indication: FOR INSOMNIA OUTPT MULTIVIT/OPHTH AREDS2/LUTE/ZEAX CAP/TAB (Status = Active) TAKE 1 CAPSULE BY MOUTH TWICE DAILY FOR VITAMIN SUPPLEMENTATION IN THE MORNING AND EVENING, WITH FOOD Rx# [id number] Last Released: 11/03/23 Qty/Days Supply: 120/60 Rx Expiration Date: 10/30/24 Refills Remainin Indication: FOR VITAMIN SUPPLEMENTATION Non-VA OTHER CAP/TAB TAKE IVERMECTIN 12MG BY MOUTH ON SUNDAY OUTPT PEG-400 0.4/PROP GLY 0.3% OPH SOLN UD (Status = Active) INSTILL 1 DROP INTO EACH EYE FOUR TIMES A DAY FOR DRY EYES Rx# [id number] Last Released: Qt Supply: Rx Expiration Date: 01/01/25 Refills Remainin Indication: FOR DRY EYES Remote PRIMIDONE 50MG TAB TAKE ONE TABLET BY MOUTH EVERY DAY TREMOR Last Filled: 05/24/23 (Active at [facility]) Rx Expiration Date: 05/24/24 Days Supply: 30 OUTPT PROPRANOLOL HCL 10MG TAB (Status = Active) TAKE ONE TABLET BY MOUTH THREE TIMES A DAY Rx# [id number] Last Released: 01/01/24 Qty/Days Supply: 180/60 Rx Expiration Date: 02/25/24 Refills Remainin Indication: ANXIETY OUTPT SERTRALINE HCL 50MG TAB (Status = Discontinued) TAKE ONE TABLET BY MOUTH ONCE DAILY ANXIETY Rx# [id number] Last Released: 08/11/23 Qty/Days Supply: Rx Expiration Date: 05/17/24 Refills Remainin Indication: ANXIETY OUTPT SERTRALINE HCL 50MG TAB (Status = Active) TAKE ONE TABLET BY MOUTH ONCE DAILY ANXIETY Rx# [id number] Last Released: 11/26/23 Qty/Days Supply: Rx Expiration Date: 11/22/24 Refills Remainin Indication: ANXIETY OUTPT SILDENAFIL CITRATE 100MG TAB (Status = Active) TAKE ONE TABLET BY MOUTH ONCE DAILY NEEDED TAKE 1 HOUR PRIOR TO SEXUAL ACTIVITY Rx# [id number] Last Released: 09/10/23 Qty/Days Supply: Rx Expiration Date: 05/23/24 Refills Remainin Indication: FOR ERECTILE DYSFUNCTION Non-VA TAMSULOSIN HCL 0.4MG CAP TAKE 2 CAPSULES BY MOUTH ONCE DAILY Medication prescribed by Non-VA provider. OUTPT ZOLPIDEM TARTRATE 10MG TAB (Status = Active) TAKE ONE TABLET BY MOUTH AT BEDTIME NEEDED FOR SLEEP Rx# [id number] Last Released: 11/22/23 Qty/Days Supply: Rx Expiration Date: 02/06/24 Refills Remainin Indication: FOR SLEEP SUPPLIES Declines printed copy of medication list now /es/ Nolan Meek OD CHIEF OF OPTOMETRY Signed: 01/04/2024 11:53 NOLAN MEEK [facility]
--- OUTSIDE RECORDS SUMMARY | 2024-01-30 09:27 | XMS_ITS | Encounter Summary ---
Author Name [place] Address [address] [place] [id number] Care Team Providers Care Director Of Federal Sales Name Role Phone RALPH HESTER Primary Care Provider [facility] [...] Alarcon's Name Patient's Relationship to Policy Alarcon [facility] ([facility] MEDICARE [email or web address] June 12, 2013 PLANF [id number] JUANI HENDRIX PATIENT [facility] MEDICARE SUPP[facility]MEN [facility] Apr 12, 2012 MEDICAR E SUPPLEM E [id number] [phone] JUANI HENDRIX PATIENT MEDICARE (WNR) MEDICARE (M) PART B Feb 13, 2012 PART B [id number] JUANI HENDRIX PATIENT MEDICARE (WNR) MEDICARE (M) PART B Feb 13, 2012 PART B [id number] JUANI HENDRIX PATIENT MEDICARE (WNR) MEDICARE (M) PART B Feb 13, 2012 PART B [id number] JUANI HENDRIX PATIENT MEDICARE (WNR) MEDICARE (M) PART B Feb 13, 2012 PART B [id number] JUANI HENDRIX PATIENT MEDICARE (WNR) MEDICARE (M) PART A May 14, 2011 PART A [id number] JUANI HENDRIX PATIENT MEDICARE (WNR) MEDICARE (M) PART A May 14, 2011 PART A [id number] JUANI HENDRIX PATIENT MEDICARE (WNR) MEDICARE (M) PART A May 14, 2011 PART A [id number] JUANI HENDRIX PATIENT MEDICARE (WNR) MEDICARE (M) PART A May 14, 2011 PART A [id number] JUANI HENDRIX PATIENT MEDICARE PART D (WNR) PRESCRIPT ION PART D Feb 12, 2021 PART D [id number] JUANI HENDRIX PATIENT Selected Encounter This section includes the [place] on [place] at [place] for [place]. Date/Time Encounter Type Encounter Description Reason Pro vider Source Dec 13, 2023 09:27 AM Outpatient Encounter ADMIN PAT ACTIVTIES (MASNONCT) IHE Encounter Template Text not used by [place] Plan of Treatment: Future Appointments (+ 6 months) and Future Tests (+/- 45 days) The Plan of Treatment section includes future care activities for the patient from all [place] treatmentfacilities. This section includes future appointments and future orders which are active, pending or scheduled. Future Appointments This section includes appointments that were scheduled to occur 6 months from the date of the Encounter, up to a maximum of 20 appointments. The data comes from all [place] treatment facilities. Appointment Date/Time Appointment Type Appointme nt Facility Name Dec 27, 2023 11:00 AM AMBULATORY - PSYCHIATRY [facility] Jan 01, 2024 12:30 PM [facility] Mar 27, 2024 09:30 AM AMBULATORY - [facility] Active, Pending, and Scheduled Orders This section includes a listing of several types of active, pending, and scheduled orders, including clinic medications orders, diagnostic test orders, procedure orders and consult orders; where the start date of the order is 45 days before the date of the Encounter or 45 days after the date of theEncounter. The data comes from all [place] treatment facilities. Test Date/Time Test Type Test Details Facility Name Jan 18, 2024 12:00 AM Laboratory - Chemi stry Order BASIC METABOLIC PANEL (non-fasting) BLOOD (SST-SERUM) [facility] [place] [facility] Jan 18, 2024 12:00 AM Laboratory - Chemi stry Order LIPID PANEL, NON FASTING BLOOD (SST-SERUM) [facility] [place] [facility] Jan 18, 2024 12:00 AM Laboratory - Chemi stry Order LIVER FUNCTION BLOOD (SST-SERUM) [facility] [place] [facility] Jan 18, 2024 12:00 AM Laboratory - Chemi stry Order CBC BLOOD (LAV-BLOOD) [facility] [place] [facility] Social History: Smoking Status (Most current) and Tobacco Use (All prior to encounter date) This section includes the most current, and the historical, smoking and tobacco- related health factors from the [place] facility where the Encounter took place. Current Smoking Status This section includes the most current smoking, or tobacco-related health factor, from the [place] facility where the Encounter took place. Date/Time Current Smoking Status Comment Facil ity Nov 21, 2023 03:30 PM VA-TOBACCO NEVER USED [place] [facility] [place] [facility] Tobacco Use History This section includes a history of the smoking, or tobacco-related health factors, that were collected on or before the date of the Encounter. The data comes from the [place] facility where the Encounter took place. Date/Time Smoking Status/Tobacco Use Comment F acility Oct 12, 2022 03:30 PM VA-TOBACCO NEVER USED [facility] [place] [facility] Mar 03, 2021 08:49 AM VA-TOBACCO NEVER USED [facility] [place] [facility] Jul 30, 2019 09:13 AM VA-TOBACCO FORMER USER [facility] [place] [facility] Jul 30, 2019 09:13 AM VA-TOBACCO QUIT 15 YRS OR MORE [facility] [place] [facility] Mar 20, 2018 12:10 PM VA-TOBACCO NEVER USED [facility] [place] [facility] Dec 14, 2016 11:39 AM LIFETIME NON-TOBACCO USER [place] [facility] [place] [facility] Dec 14, 2014 10:59 AM LIFETIME NON-TOBACCO USER [place] [facility] [place] [facility] Encounter Notes: All associated encounter notes This section contains the clinical notes associated to the Encounter. Date/Time Encounter Note(s) Provider Source Dec 13, 2023 09:27 AM ADMINISTRATIVE NOTE: LOCAL TITLE: CCC: SCHEDULING ADMINISTRATION STANDARD TITLE: ADMINISTRATIVE NOTE DATE OF NOTE: DEC 13, 2023@09:27:49 ENTRY DATE: DEC 13, 2023@09:27:49 AUTHOR: RAIMUNDO SCHUMACHER EXP COSIGNER: URGENCY: STATUS: COMPLETED Patient Demographics Patient Name: JUANI HENDRIX III Patient Primary Phone: [phone] Patient Primary [address]: [address] [place] [id number] Patient : 1945 Patient Age: 78 Current Location: [place] Call Back Number: [phone] Caller/Recipient Relation to Patient: Self Scheduling Cannot Complete Scheduling Action Reason: No Appointment Available Requested Service(s): Primary Care Scheduling Note Reason: Cannot Complete Appointment Request Open Request: None of the above Administrative Administrative Note Reason: Lab / Imaging Results Administrative Note Comments: Patient is requesting lab order for up coming appointment primary care 01/31/24 stated before he leaves [place] 12/02/23 wanted labs placed by primary care .Requesting call back. IMPORTANT: This note was created by [facility] staff. Please do not alert the staff member by adding them as a signer for future communications. Alerts are not monitored by this user. /es/ RAIMUNDO SCHUMACHER VISN1 [facility] Signed: 12/13/2023 09:27 Receipt Acknowledged By: 12/13/2023 15:27 /es/ Demetrius Solis, Health Sleeping Room Cleaner REFINING EQUIPMENT OPERATOR,PRIMARY CARE 12/13/2023 13:31 /es/ MELISSA GIRON REGISTERED NURSE for [facility]
--- OUTSIDE RECORDS SUMMARY | 2024-01-30 09:28 | XMS_ITS ---
Author Organization [facility] [place] Address [address] [place] [address] Care Team Providers Care Crime Lab Analyst Name Role Phone Update, PCP Primary Care Provider Melissa Coffey Unavailable [phone] Allergies No Known Allergies REASON FOR VISIT lump on tongue Medications Medication SIG (Take, Route, Frequency, Duration) Notes Start Date End Date Status Amoxicillin-Pot Clavulanate 875-125 MG 1 tablet Orally every 12 hrs for 10 day(s) 03/02/2023 03/12/2023 Active Chlorhexidine Gluconate 0.12 % 5 ml Mouth/Throat twice per day for 10 03/02/2023 03/12/2023 Active Nitroglycerin 0.4 MG Sublingual for 10 Days Active Problems Problem Type SNOMED Code ICD Code Onset Dates Problem Status W/U Status Risk Notes Problem Seasonal allergy (729155410) Seasonal allergies (J30.2) Active confirmed Problem Heart block (954616716) Heart block (I45.9) Active confirmed Vital Signs Temperature 98.1 degrees Fahrenheit 03/02/19 24 Heart Rate 71 /min 03/02/2023 Blood pressure systolic 126 mm Hg 03/02/19 24 Blood pressure diastolic 64 mm Hg 024 Weight 155 lbs 03/02/2023 Height 69 in 03/02/2023 BMI 22.89 kg/m2 03/02/2023 Respiratory Rate 18 /min 03/02/2023 Oximetry 96 % 03/02/2023 Height-cm 175.26 cm 03/02/2023 Weight-kg 70.31 kg 03/02/2023 Encounters Encounter Location Date Provider Diagnosis [facility] [address] [facility] [address] [place] [address] 03/02/2023 Melissa Rice Transient lingual papillitis K14.0 and Acute pain R52 Assessments Encounter Date Diagnosis (ICD Code) Assessment Notes Treatment Notes Treatment Clinical Notes Section Notes 03/02/2023 Transient lingual papillitis (ICD-10 - K14.0) Transient lingual papillitis (lie bumps or liar's tongue) is a condition that affects your tongue, making small, painful red or white bumps. It happens when something irritates your papillae, the tiny bumps covering your tongue. Transient lingual papillitis isn't a serious condition. advised pt to follow up if lesion is still present in 3 weeks 03/02/2023 Acute pain (ICD-10 - R52) Please take [id number] Tylenol or Ibuprofen for your aches/pains as recommended. 03/02/2023 Other Please arrange a follow up visit with your primary care physician to discuss your conditions as soon as possible. You may return to the clinic if your signs or symptoms persist or worsen. For life threatening emergencies, please call 911 or go to the closest emergency room for detailed medical care. You must understand that we are not a primary care facility and you have received Urgent Care treatment only, and that you may have been released before all of your medical problems were known or treated. You, the patient, are responsible to make arrangements with your primary care physician as instructed. Plan Of Treatment Medication Medication Name Sig Start Date Stop Date Notes Amoxicillin-Pot Clavulanate 875-125 MG 1 tablet Orally every 12 hrs for 10 day(s) 03/02/2023 03/12/2023 Chlorhexidine Gluconate 0.12 % 5 ml Mout h/Throat twice per day for 10 03/02/2023 03/12/2023 Treatment Notes Assessment Notes Transient lingual papillitis Transient l ingual papillitis (lie bumps or liar's tongue) is a condition that affects your tongue, making small, painful red or white bumps. It happens when something irritates your papillae, the tiny bumps covering your tongue. Transient lingual papillitis isn't a serious condition. Acute pain Please take over-the -counter Tylenol or Ibuprofen for your aches/pains as recommended. Other Please arrange a follow up visit with your primary care physician to discuss your conditions as soon as possible. You may return to the clinic if your signs or symptoms persist or worsen. For life threatening emergencies, please call 911 or go to the closest emergency room for detailed medical care. You must understand that we are not a primary care facility and you have received Urgent Care treatment only, and that you may have been released before all of your medical problems were known or treated. You, the patient, are responsible to make arrangements with your primary care physician as instructed. Next Appt Details Follow Up: follow up with PC P in 1 week, Reason: Progress Notes * SIMEON ASYA CarlosDOB:[birth year] (77 yo M)Acc No.[id number]:03/02/2023 Patient:?Carlos BRAND III Provider:?Melissa Rice APRN :1945???Age:77 Y???Sex:Male Chevy e:03/02/2023 Address:[address] [place], [place] [phone] Pcp:PCP Update Subjective: * Chief Complaints: * ???Lump on tongue * HPI: ???Complaint:?Lump?The lump started?4 days ?The lump is located?top right side of tongue ?The affected area?is painful ?The size of the lump is?1-2 cm ?Aggravating factors include?brushing teeth ?Alleviating factors include?denies ?Associated factors include?swelling ?Overall condition?is worsening patient states the lump doesn't bother him in the mornings its worse at night ???*Patient Intake:?New/Est?Patient is a?new patient. ?Historian?Historian?Self ?PCP?Patient has a Primary Care Provider:?Yes ?Patient's PCP is:?Dr. Longoria ???Depression Screening (12yrs+):?PHQ-2: How often have the following problems occurred?Little interest or pleasure in doing things??Not at all ?Feeling down, depressed, or hopeless??Not at all ???Drug Screening (18yrs+):?Drug Abuse Screening Tool?Have you used drugs other than those for medical reasons in the past 12 months??No * ROS:?General/Constitutional:?Fatigue?denies.?Fever?denies.?Allergy/Immunology:?Seasonal allergies?denies.?Ophthalmologic:?Eye Discharge?denies.?Eye Pain?denies.?ENT:?Patient complaining of?sore bump on tongue.?Ear pain?denies.?Nasal congestion?denies.?Sore throat?denies.?Respiratory:?Cough?denies.?Shortness of breath?denies.?Cardiovascular:?Chest pain?denies.?Palpitations?denies.?Gastrointestinal:?Abdominal pain?denies.?Diarrhea?denies.?Nausea?denies.?Vomiting?denies.?Hematology:?Bleeding problems?denies.?Genitourinary:?Difficulty urinating?denies.?Painful urination?denies.?Musculoskeletal:?Back pain?denies.?Neck pain?denies.?Painful joints?denies.?Skin:?Itching?denies.?Rash?denies.?Neurologic:?Dizziness?denies.?Headache?denies.?Tingling/Numbness?denies.? * Medical History:? * Surgical History:?Denies Pas t Surgical History * Hospitalization/Major Diagno stic Procedure:?Denies Past Hospitalization * Family History:?Spouse: brian velasco? * Medications:?TakingNitroglyc darcy 0.4 MG Tablet Sublingual Sublingual Medication List reviewed and reconciled with the patientTaking Nitroglycerin 0.4 MG Tablet Sublingual Sublingual Medication List reviewed and reconciled with the patient * Allergies:?N.K.D.A.no[Allerg ies Verified] Objective: * Vitals:?Temp:98.1F, HR:71/mi n, BP:126/64mm Hg, Wt:155lbs, Ht: 69 in, BMI:22.89Index, RR:18/min, Oxygen sat %:96%, Ht-cm: 175.26 cm, Wt-k.31 kg. * Examination: ???General Examination: ?GENERAL APPEARANCE:?in no acute distress, well developed, well nourished.?HEAD:?normocephalic, atraumatic.?EYES:?pupils equal, round, sclera non-icteric.?EARS:?normal hearing.?NOSE:?nares patent.?ORAL CAVITY:?3 mm round, flesh colored, lump on right anterior surface of the tongue. tenderness with palpation, no drainage.?THROAT:?pharynx normal.?NECK/THYROID:?neck supple, full range of motion, no cervical lymphadenopathy.?LYMPH NODES:?no palpable adenopathy.?SKIN:?no rashes, no suspicious lesions, warm and dry.?HEART:?no murmurs, regular rate and rhythm, S1 & S2 normal.?LUNGS:?clear to auscultation bilaterally.?CHEST:?no gross chest deformity.?MUSCULOSKELETAL:?normal exam, moves all extremities equally.?EXTREMITIES:?no clubbing, cyanosis, or edema.?PSYCH?alert, oriented, cooperative with exam, good eye contact.? Assessment: * Assessment: 1.?Transient lingual papilli tis - K14.0 (Primary)?2.?Acute pain - R52? Plan: * Treatment: 2.?Acute pain? Notes: Please take [id number] Tylenol or Ibuprofen for your aches/pains as recommended.?? 3.?Others? Notes:Please arrange a follow up visit with your primary care physician to discuss your conditions as soon as possible. You may return to the clinic if your signs or symptoms persist or worsen. For life threatening emergencies, please call 911 or go to the closest emergency room for detailed medical care. You must understand that we are not a primary care facility and you have received Urgent Care treatment only, and that you may have been released before all of your medical problems were known or treated. You, the patient, are responsible to make arrangements with your primary care physician as instructed. ?? * Procedure Codes:? * Follow Up:?follow up with PC P in 1 week * * Sign off status: Completed true * Provider:?Melissa Rice APRN Date:? 03/02/2023 Generated for Komal crawford/Darryn/eTransmitting on:?01/30/2024 09:27 AM EST History and Physical Notes * HPI (History of Present Illness) Category Sub-Category Detail Notes Category Not es Depression Screening (12yrs+) PHQ-2: How often have the following problems occurred? Little interest or pleasure in doing things?: Not at all Feeling down, depressed, or hopeless?: N ot at all Drug Screening (18yrs+) Drug Abuse Screening Too l Have you used drugs other than those for medical reasons in the past 12 months?: No Complaint Lump The lump started : 4 days The lump is located : top right side of tongue The affected area: is painful The size of the lump is: 1-2 cm Aggravating factors include: brushing te eth Alleviating factors include: denies Associated factors include: swelling Overall condition: is worsening patient states the lump doesn't bother him in the mornings its worse at night *Patient Intake New/Est Patient is a: new patient. Historian Historian: Self PCP Patient has a Primary Care Provi chanda:: Yes ?Patient's PCP is:: Dr. Longoria Examination Category Sub-Category Detail Notes Category Not es General Examination GENERAL APPEARANCE: in no ac lyla distress, well developed, well nourished HEAD: normocephalic, atrau matic EYES: pupils equal, round, sclera non-icteric EARS: normal hearing NOSE: nares patent THROAT: pharynx normal NECK/THYROID: neck supple, full ra nge of motion, no cervical lymphadenopathy HEART: no murmurs, regular rate and rhythm, S1 & S2 normal CHEST: no gross chest defor mity LUNGS: clear to auscultatio n bilaterally SKIN: no rashes, no suspic ious lesions, warm and dry EXTREMITIES: no clubbing, cyanosi s, or edema MUSCULOSKELETAL: normal exam, moves a ll extremities equally LYMPH NODES: no palpable adenopat hy PSYCH alert, oriented, summer school coordinator perative with exam, good eye contact ORAL CAVITY: 3 mm round, flesh co lored, lump on right anterior surface of the tongue. tenderness with palpation, no drainage
--- OUTSIDE RECORDS SUMMARY | 2024-01-30 09:28 | XMS_ITS | Patient Health Record ---
Author Organization [facility] [place] Address [address] [place] [address] Care Team Providers Care Kiln Pusher Name Role Phone Update, PCP Primary Care Provider Lona Bergman Unavailable [phone] Melissa Rice Unavailable [phone] Allergies No Known Allergies Reason For Referral No Information Medications Medication SIG (Take, Route, Frequency, Duration) Notes Start Date End Date Status Donepezil HCl 5 MG 1 tablet at bedtime Orally Once a day Active Sertraline HCl 50 MG 1 tablet Orally Once a day Active Propranolol HCl 20 MG/5ML 5 mL Orally Twice a day Active Nitroglycerin 0.4 MG Sublingual for 10 Days Active Problems Problem Type SNOMED Code ICD Code Onset Dates Problem Status W/U Status Risk Notes Problem Seasonal allergy (669990469) Seasonal allergies (J30.2) Active confirmed Problem Heart block (050757803) Heart block (I45.9) Active confirmed Vital Signs Heart Rate 62 /min 09/30/2023 Temperature 98.7 degrees Fahrenheit 09/30/2023 Respiratory Rate 18 /min 09/30/2023 Blood pressure diastolic 62 mm Hg 09/30/2023 Oximetry 99 % 09/30/2023 Height-cm 175.26 cm 09/30/2023 Weight-kg 72.57 kg 09/30/2023 Height 69 in 09/30/2023 Blood pressure systolic 110 mm Hg 09/30/2023 Weight 160 lbs 09/30/2023 BMI 23.63 kg/m2 09/30/2023 Encounters Encounter Location Date Provider Diagnosis [facility] [address] [facility] [address] [place] [address] 03/02/2023 Melissa Rice Transient lingual papillitis K14.0 and Acute pain R52 [facility] [address] [facility] [address] [place] [address] 09/30/2023 Lona Caulder Pruritic rash L28.2 ; Rash and other nonspecific skin eruption R21 ; Tick bite of multiple sites W57.XXXA ; Alcohol use Z78.9 ; Encounter for screening for depression Z13.31 ; Medication management Z79.899 ; Encounter for smoking cessation counseling Z71.6 and Counseling and coordination of care Z71.89 Assessments Encounter Date Diagnosis (ICD Code) Assessment [...] Acute pain (ICD-10 - R52) Please take vgoo-pvh-dqobwnd Tylenol or Ibuprofen for your aches/pains as recommended. 09/30/2023 Rash and other nonspecific skin eruption (ICD-10 - R21) Avoid hot baths/showers cool or tepid is better as heat will worsen rash/itching. Leave open to air as much as possible. Sometimes petroleum jelly (Vaseline) can help relieve the discomfort caused by a rash. A moisturizing lotion may help, such as Cetaphil (avoid lotions with perfume/alcohol as this will dry out skin and may worsen symptoms). If itching is interfering with normal activities you may take an over the counter antihistamine, such as diphenhydramine (Benadryl which may cause to be drowsy) or loratadine (Claritin). Read and follow all instructions on the label. 09/30/2023 Pruritic rash (ICD-10 - L28.2) Use cold, wet cloths to reduce itching. Keep cool, and stay out of the sun. Leave the rash open to the air. l. Avoid most lotions and ointments until the rash heals. Calamine lotion or Aveeno oatmeal baths/soapmay help relieve symptoms. Use it 3 or 4 times a day. Take all prescriptions as RX 09/30/2023 Tick bite of multiple sites (ICD-10 - W57.XXXA) Put ice or a cold pack on the bite for 15 to 20 minutes once an hour. Put a thin cloth between the ice and your skin. Try an qdpa-cje-ziviwev medicine to relieve itching, redness, swelling, and pain. Be safe with medicines. Read and follow all instructions on the label. Take an antihistamine medicine, such as a non-drowsy one like loratadine (Claritin) or one that might make you sleepy like diphenhydramine (Benadryl). These medicines may help relieve itching, redness, and swelling. Learn where ticks are found in your community, and stay away from those areas if possible. Cover as much of your body as possible when you work or play in grassy or wooded areas. Use insect repellents, such as products containing DEET. You can spray them on your skin. Take steps to control ticks on your property if you live in an area where Lyme disease occurs. Clear leaves, brush, tall grasses, woodpiles, and stone fences from around your house and the edges of your yard or garden. This may help get rid of ticks. When you come in from outdoors, check your body for ticks, including your groin, head, and underarms. The ticks may be about the size of a sesame seed. If no one else can help you check for ticks on your scalp, comb your hair with a fine-tooth comb. If you find a tick, remove it quickly. Use tweezers to grasp the tick as close to its mouth (the part in your skin) as possible. Slowly pull the tick straight out, do not twist or yank until its mouth releases from your skin. If part of the tick stays in the skin, leave it alone. It will likely come out on its own in a few days. Ticks can come into your house on clothing, outdoor gear, and pets. These ticks can fall off and attach to you. Check your clothing and outdoor gear. Remove any ticks you find. Then put your clothing in a clothes dryer on high heat for 1 hour to kill any ticks that might remain. Check your pets for ticks after they have been outdoors. 09/30/2023 Alcohol use (ICD-10 - Z78.9) 09/30/2023 Encounter for screening for depression (ICD-10 - Z13.31) 09/30/2023 Medication management (ICD-10 - Z79.899) 09/30/2023 Encounter for smoking cessation counseling (ICD-10 - Z71.6) 09/30/2023 Counseling and coordination of care (ICD-10 - Z71.89) 03/02/2023 Other Please arrange a follow up [...] with your primary care physician as instructed. 09/30/2023 Other Please arrange follow up with your primary medical clinic to discuss your conditions as soon as possible. Return to clinic if signs or symptoms persist or worsen. For life threatening emergencies, please call 911 or go to the closest emergency room. You must understand that we are not a primary care facility and you have received Urgent Care treatment only, and that you may be released before all of your medical problems are known or treated. You, the patient, are responsible to make arrangements with your primary care physician as instructed. Please arrange for follow up medical care for your condition to occur within one week. You must understand that as an Urgent Care Clinic, we are not responsible for routine healthcare maintenance. Such services are to be provided by your primary care physicians, even though you may have been seen multiple times in our facility. If your condition worsens, we recommend that you receive another evaluation at the emergency room immediately or contact your primary medical clinic to discuss your concerns. Patient / family / guardian questions, concerns, and treatment plan were answered to full satisfaction and in agreement with the plan of care. Plan Of Treatment No Information Insurance Providers Payer Name Payer Address Payer Phone Subscriber Number Group Number Insured Name Patient Relationship to Insured Coverage Start Date Coverage End Date [employer] of [place] [employer] [address] [place] [phone] [id number] Carlos Brand III Self - patient is the insured 4 [facility] [address] [place] [phone] [id number] Carlos Brand III Self - patient is the insured 4 Medical (General) History Medical History History ICD Code Seasonal allergies J30.2 Heart block I45.9
--- OUTSIDE RECORDS SUMMARY | 2024-01-30 09:28 | XMS_ITS ---
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 Name Role Phone Update, PCP Primary Care Provider Lona Bergman Unavailable [phone] Allergies No Known Allergies REASON FOR VISIT tick bites Medications Medication SIG (Take, Route, Frequency, Duration) Notes Start Date End Date Status Donepezil HCl 5 MG 1 tablet at bedtime Orally Once a day Active Sertraline HCl 50 MG 1 tablet Orally Once a day Active Propranolol HCl 20 MG/5ML 5 mL Orally Twice a day Active Nitroglycerin 0.4 MG Sublingual for 10 Days Active Vital Signs Temperature 98.7 degrees Fahrenheit 09/30/19 24 Heart Rate 62 /min 09/30/2023 Blood pressure systolic 110 mm Hg 09/30/19 24 Blood pressure diastolic 62 mm Hg 024 Weight 160 lbs 09/30/2023 Height 69 in 09/30/2023 BMI 23.63 kg/m2 09/30/2023 Respiratory Rate 18 /min 09/30/2023 Oximetry 99 % 09/30/2023 Height-cm 175.26 cm 09/30/2023 Weight-kg 72.57 kg 09/30/2023 Encounters Encounter Location Date Provider Diagnosis [facility] [address] [facility] [address] [place] [address] 09/30/2023 Lona Bray Pruritic rash L28.2 ; Rash and other nonspecific skin eruption R21 ; Tick bite of multiple sites W57.XXXA ; Alcohol use Z78.9 ; Encounter for screening for depression Z13.31 ; Medication management Z79.899 ; Encounter for smoking cessation counseling Z71.6 and Counseling and coordination of care Z71.89 Assessments Encounter Date Diagnosis (ICD Code) Assessment Notes Treatment Notes Treatment Clinical Notes Section Notes 09/30/2023 Pruritic rash (ICD-10 - L28.2) Use cold, wet cloths to reduce itching. Keep cool, and stay out of the sun. Leave the rash open to the air. l. Avoid most lotions and ointments until the rash heals. Calamine lotion or Aveeno oatmeal baths/soapmay help relieve symptoms. Use it 3 or 4 times a day. Take all prescriptions as RX 09/30/2023 Rash and other nonspecific skin eruption [...] follow all instructions on the label. 09/30/2023 Tick bite of multiple sites (ICD-10 - W57.XXXA) Put ice or a cold pack on the bite for 15 to 20 minutes once an hour. Put a thin cloth between the ice and your skin. Try an pfuv-pmo-hnvmxoz medicine to relieve itching, redness, swelling, and [...] and coordination of care (ICD-10 - Z71.89) 09/30/2023 Other Please arrange follow up with [...] the plan of care. Plan Of Treatment Treatment Notes Assessment Notes Pruritic rash Use cold, wet cloths to reduce itching. Keep cool, and stay out of the sun. Leave the rash open to the air. l. Avoid most lotions and ointments until the rash heals. Calamine lotion or Aveeno oatmeal baths/soapmay help relieve symptoms. Use it 3 or 4 times a day. Take all prescriptions as RX Rash and other nonspecific skin eruption Avoid hot baths/showers cool or tepid is [...] and follow all instructions on the label. Tick bite of multiple sites Put ice or a cold pack on the bite for 15 to 20 minutes once an hour. Put a thin cloth between the ice and your skin. Try an lbnc-ear-amvparn medicine to relieve itching, redness, swelling, and [...] for ticks after they have been outdoors. Other Please arrange follo w up with your primary medical clinic to [...] in agreement with the plan of care. Next Appt Details Follow Up: prn, Reason: Progress Notes * Carlos BRAND IIIDOB:[birth year] (78 yo M)Acc No.[id number]:09/30/2023 Patient:?Carlos BRAND III Provider:?Lona Bray APRN :1945???Age:78 Y???Sex:Male Chevy e:09/30/2023 Address:[address] [place] [address] [place], [id number] Pcp:PCP Update Subjective: * Chief Complaints: * ???Tick bites * HPI: ???Complaint:?Animal/ Insect Bite or Scratch?Animal/ Insect Bite or Scratch occurred?2 Days ago ?Was this a Animal/ Insect Bite or Scratch?Bite ?The Animal/ Insect Bite or Scratch is located?Right Leg ?The severity of the Animal/ Insect Bite or Scratch?Mild ?The character of the Animal / Insect Bite or Scratch?none ?Associated symptoms include?none ?Medication for Animal/ Insect Bite or Scratch?none ?What type of Animal or Insect?none ?Is the patient the general production manager of the animal?Does Not Apply Insect Bite ?Is the animal up to date on their rabies shot?Does Not Apply Insect ?Was a report to Animal control completed?Does Not Apply Insect ???*Patient Intake:?New/Est?Patient is a?established patient. ?Historian?Historian?Self ?PCP?Patient has a Primary Care Provider:?Yes ???Alcohol Screening (18yrs+):?Audit-C?Did you have a drink containing alcohol in the past year??Yes ?How often did you have a drink containing alcohol in the past year??Two to four times a month ?How many drinks did you have on a typical day when you were drinking in the past year??1 or 2 ?How often did you have six or more drinks on one occasion in the past year??Never ???Depression Screening (12yrs+):?PHQ-2: How often have the following problems occurred?Little interest or pleasure in doing things??Not at all ?Feeling down, depressed, or hopeless??Not at all ???Drug Screening (18yrs+):?Drug Abuse Screening Tool?Have you used drugs other than those for medical reasons in the past 12 months??No ?Do you use Medical Marijuana or THC Products?No ???Fall Risk (65yrs+):?Assessment?Have you had two or more falls in the past year??No ?Fall Risk Assessment:?No falls in the past year ???Tobacco Screening (All Ages):?Tobacco Use (18yrs+)?Are you a:?Non Smoker ?Have you:?Never Smoked ???Pain Management:?Pain Scale?Pain Scale (1-10)?1 * ROS:?General/Constitutional:?Overall health?Good,.?Fever?denies.?Night sweats?denies.?Weight loss?denies,.?Allergy/Immunology:?Seasonal allergies?denies,.?Sneezing?denies.?Ophthalmologic:?Eye Discharge?denies.?Eye Pain?denies.?Vision changes?denies.?ENT:?Ear pain?denies.?Nose/Throat problems?denies.?Sinus pain?denies.?Snoring?denies.?Sore throat?denies.?Swollen glands?denies.?Respiratory:?Breathing problems?denies.?Cough?denies.?Shortness of breath?denies.?Wheezing?denies.?Cardiovascular:?Chest pain?denies.?High blood pressure?denies.?Orthopnea?denies.?Palpitations?denies.?Swelling in hands/feet?denies.?Gastrointestinal:?Abdominal pain?denies.?Blood in stool?denies.?Change in bowel habits?denies.?Constipation?denies.?Decreased appetite?denies.?Diarrhea?denies.?Difficulty swallowing?denies.?Nausea?denies.?Vomiting?denies.?Genitourinary:?Blood in urine?denies.?Difficulty urinating?denies.?Kidney problems?denies.?Painful urination?denies.?Musculoskeletal:?Back pain?denies.?Carpal tunnel?denies.?Neck pain?denies.?Painful joints?denies.?Peripheral Vascular:?Decreased sensation in extremities?denies.?Pain/cramping in legs after exertion?denies.?Skin:?Patient complaining of?tick bites, right leg, itch.?Itching?admits.?Rash?denies.?Neurologic:?Dizziness?denies.?Gait abnormality?denies.?Headache?denies.?Tingling/Numbness?denies.?Tremor?denies.?Psychiatric:?Anxiety?denies.?Auditory/visual hallucinations?denies.?Depressed mood?denies.?Suicidal thoughts?denies.? * Medical History:? * Surgical History:?Denies Pas t Surgical History * Hospitalization/Major Diagno stic Procedure:?Denies Past Hospitalization * Family History:?Spouse: brian velasco? * Medications:?TakingDonepezil HCl 5 MG Tablet 1 tablet at bedtime Orally Once a day Sertraline HCl 50 MG Tablet 1 tablet Orally Once a day Propranolol HCl 20 MG/5ML Solution 5 mL Orally Twice a day Nitroglycerin 0.4 MG Tablet Sublingual Sublingual Medication List reviewed and reconciled with the patientTaking Donepezil HCl 5 MG Tablet 1 tablet at bedtime Orally Once a day Taking Sertraline HCl 50 MG Tablet 1 tablet Orally Once a day Taking Propranolol HCl 20 MG/5ML Solution 5 mL Orally Twice a day Taking Nitroglycerin 0.4 MG Tablet Sublingual Sublingual Medication List reviewed and reconciled with the patient * Allergies:?N.K.D.A.no[Allerg ies Verified] Objective: * Vitals:?Temp:98.7F, HR:62/mi n, BP:110/62mm Hg, Wt:160lbs, Ht: 69 in, BMI:23.63Index, RR:18/min, Oxygen sat %:99%, Ht-cm: 175.26 cm, Wt-k.57 kg. * Examination: ???General Examination: ?GENERAL APPEARANCE:?in no acute distress, well developed, well nourished.?HEAD:?normocephalic, atraumatic.?EYES:?pupils equal, round, reactive to light and accommodation.?EARS:?hearing intact to whispered voice.?NOSE:?nares patent.?ORAL CAVITY:?mucosa moist, , gums normal.?NECK/THYROID:?neck supple, full range of motion, .?SKIN:?2 pin-point scabs behind right knee, no erythema, no streaking.?HEART:?no murmurs, regular rate and rhythm, S1, S2 normal.?LUNGS:?clear to auscultation bilaterally, good air movement.?CHEST:?no gross chest deformity.?ABDOMEN:?, soft, nontender, nondistended.?BACK:?full range of motion.?MUSCULOSKELETAL:?no CVA tenderness, full range of motion, no swelling or deformity.?EXTREMITIES:?no clubbing, cyanosis, or edema.?NEUROLOGIC:?nonfocal, motor strength normal upper and lower extremities.? Assessment: * Assessment: 1.?Rash and other nonspecifi c skin eruption - R21 (Primary)???2.?Pruritic rash - L28.2???3.?Tick bite of multiple sites - W57.XXXA???4.?Alcohol use - Z78.9???5.?Encounter for screening for depression - Z13.31? ?6.?Medication management - Z79.899???7.?Encounter for smoking cessation counseling - Z71.6???8.?Counseling and coordination of care - Z71.89??? Plan: * Treatment: 2.?Pruritic rash? Notes: Use cold, wet cloths to reduce itching. Keep cool, and stay out of the sun. Leave the rash open to the air. l. Avoid most lotions and ointments until the rash heals. Calamine lotion or Aveeno oatmeal baths/soapmay help relieve symptoms. Use it 3 or 4 times a day. Take all prescriptions as RX?? 3.?Tick bite of multiple sit es? Notes: Put ice or a cold pack on the bite for 15 to 20 minutes once an hour. Put a thin cloth between the ice and your skin. Try an lefq-ons-hvlfged medicine to relieve itching, redness, swelling, and [...] pets for ticks after they have been outdoors.?? 4.?Others? Notes:Please arrange follow up with your primary medical [...] and in agreement with the plan of care.?? * Procedure Codes:?1123F ACP D ISCUSS/DSCN MKR [id number] Screen unhlthy etoh [id number] NEG SCR D PT NOT ELIG F/U/PLN [id number] DOC MEDS VERIFIED W/PT OR [id number] Pt scrn tbco id as non [id number] NORMAL BP READING DOC F/U NOT [id number] BMI<30 AND >=22 CALC & [id number] Unhlthy etoh rcvd couns * Preventive Medicine:? ??Counseling:?ALCOHOL USE/ABUSE SCREENING:?Counseling for alcohol use/abuse ?was completed today ?Positive CAGE questions included?[...] ?Social:?alcohol and drugs:?Discussed the dangers of excessive alcohol intake * Follow Up:?prn * * Sign off status: Completed true * Provider:?Lona Bray APRN Date:? Generated for Komal crawford/Darryn/Eben on:?01/30/2024 09:27 AM EST History and Physical Notes * HPI (History of Present Illness) Category Sub-Category Detail Notes Category Not es Pain Management Pain Scale Pain Scale (1-10 ): 1 Depression Screening (12yrs+) PHQ-2: How often have the following problems occurred? Little interest or pleasure in doing things?: Not at all Feeling down, depressed, or hopeless?: N ot at all Drug Screening (18yrs+) Drug Abuse Screening Too l Have you used drugs other than those for medical reasons in the past 12 months?: No Do you use Medical Marijuana or THC Prod ucts: No Alcohol Screening (18yrs+) Audit-C Did y ou have a drink containing alcohol in the past year?: Yes ?How often did you have a dr ink containing alcohol in the past year?: Two to four times a month ?How many drinks did you hav e on a typical day when you were drinking in the past year?: 1 or 2 ?How often did you have six or more drinks on one occasion in the past year?: Never Complaint Animal/ Insect Bite or Scratch A nimal/ Insect Bite or Scratch occurred: 2 Days ago Was this a Animal/ Insect Bite or Scratc h: Bite The Animal/ Insect Bite or Scratch is lo cated: Right Leg The severity of the Animal/ Insect Bite or Scratch: Mild The character of the Animal / Insect Bit e or Scratch: none Associated symptoms include: none Medication for Animal/ Insect Bite or Sc ratch: none What type of Animal or Insect: none Is the patient the general production manager of the animal: Does Not Apply Insect Bite Is the animal up to date on their rabies shot: Does Not Apply Insect Was a report to Animal control completed : Does Not Apply Insect *Patient Intake New/Est Patient is a: vero coles. Historian Historian: Self PCP Patient has a Primary Care Provi chanda:: Yes Fall Risk (65yrs+) Assessment Have you had two or more falls in the past year?: No Fall Risk Assessment:: No falls in the p ast year Tobacco Screening (All Ages) Tobacco Use (18yrs+) Are you a:: Non Smoker ?Have you:: Never Smoked Examination Category Sub-Category Detail Notes Category Not es General Examination GENERAL APPEARANCE: in no ac lyla distress, well developed, well nourished HEAD: normocephalic, atrau matic EYES: pupils equal, round, reactive to light and accommodation EARS: hearing intact to wh ispered voice NOSE: nares patent NECK/THYROID: neck supple, full ra nge of motion, HEART: no murmurs, regular rate and rhythm, S1, S2 normal CHEST: no gross chest defor mity LUNGS: clear to auscultatio n bilaterally, good air movement ABDOMEN: , soft, nontender, n ondistended NEUROLOGIC: nonfocal, motor stre ngth normal upper and lower extremities SKIN: 2 pin-point scabs be hind right knee, no erythema, no streaking EXTREMITIES: no clubbing, cyanosi s, or edema BACK: full range of motion MUSCULOSKELETAL: no CVA tenderness, f ull range of motion, no swelling or deformity ORAL CAVITY: mucosa moist, , gums normal
[2024-01-30] MEDS: gadobutroL 7.5 ML VIAL IVPUSH (10:26)
== END 2024-01-30 09:19 | disposition home or self-care (01) ==
LOC: HO.MRI 09:18
PROVIDERS: PCP Family Medicine; Visit Provider Urology
DX: R97.20 Elevated prostate specific antigen [PSA] (principal)
CPT/HCPCS: 72197; A9585

== ENCOUNTER → 2024-01-30 09:18 | Outpatient (BNV) | payer MEDICARE, OTHER, SELFPAY | PROVIDERS: PCP Family Medicine; Visit Provider Radiology Diagnostic Radiology | DX: R97.20 Elevated prostate specific antigen [PSA] (principal) | CPT/HCPCS: 72197 ==